=== PATIENT | female | born 1980 | race Caucasian/White ===

== ENCOUNTER 2023-05-24 22:13 | Inpatient (IN) ==
--- OUTSIDE RECORDS SUMMARY | 2023-05-24 22:19 | External Medical Summary | Summary of Care ---
Author Name Unknown Organization [facility] Address [address] [place] [address] Phone [phone] Care Team Providers Care Dinkey Motor Operator Name Role Phone Domingo Marte MD Primary Care Provider [phone] [phone] Reason for Visit * Reason Onset Date Comments Forms Request 05/18/2023 Encounter Details Date Type Department Care Team (Late st Contact Info) Description 05/18/2023 Telephone General Surgery, [facility] [address] [place], [place] [id number] Services, Scheduling [address] [place] [address] Forms Request Allergies Active Allergy Reactions Criticality Noted Date Comments Oxycodone Nausea/vomiting 05/23/2013 documented as of this encounter (statuses as of 05/22/2023) Medications Medication Sig Dispensed Refills Start Date End Date Status Albuterol Sulfate HFA 108 (90 Base) MCG/ACT Inhalation Aerosol SolutionIndications:Mi ld persistent asthma, unspecified whether complicated Inhale by mouth 2 Puffs every 6 hours as needed for Wheezing. 18 g 1 02/12/2022 Active SUMAtriptan Succinate 50 MG Oral Tablet (Imitrex)Indications:M igraine with aura and without status migrainosus, not intractable TAKE 1 TABLET BY MOUTH NEEDED FOR MIGRAINE HEADACHE FOR ONE DOSE. MAY REPEAT DOSE AFTER 2 HOURS NEEDED. DO NOT EXCEED 4 TABLETS PER DAY 10 Tablet 5 09/23/2022 Active medroxyPROGESTERone Acetate 150 MG/ML Intramuscular Suspension 0 04/02/2023 Active Multivitamin Women Oral Tablet Take 1 Tablet by mouth daily. 0 Active Simethicone 125 MG Oral Tablet Take by mouth. 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 Migraine with aura and witho ut status migrainosus, not intractable 07/18/2013 documented as of this encounter (statuses as of 05/22/2023) Resolved Problems Problem Noted Date Diagnosed Date Resolved Date CARRIE (generalized anxiety disorder) 12/09/2022 12/09/2022 Chronic rhinitis 05/12/2021 12/08/2022 Persistent cough 11/14/2020 02/04/2021 Reactive airway disease 11/14/2020 08/0 02/2021 Non-recurrent acute serous o titis media of right ear 11/14/2020 02/04/2021 Viral URI with cough 11/08/2020 021 Melanocytic nevi of face 07/22/201202/2021 ADVANCE DIRECTIVE INFORMATION 12/02/2009 02/04/2021 Overview: No, Advance Directive brochure offered , patient declined. 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 02/04/2021 documented as of this encounter (statuses as of 05/22/2023) Immunizations Name Administration Dates Next Due COVID-19 mRNA, LNP-s, No Pre serve, 2-Dose Series ([employer]) 10/06/2020,09/15/2020 SEASONAL INFLUENZA, PF, 6 M & Above, IM , (FLULAVAL or FLUZONE) 04/16/2023,04/11/2019,04/08/2018 Seasonal Influenza, Split, I IV3, With Preserve, Inj 06/02/2014 TDAP (age 10 and older)(Boostrix) 02/04/2021 TDAP (age 11 and older)(Adacel) 11/30/2009 documented as of this encounter Social History Tobacco Use Types Packs/Day Years Used Date Smoking Tobacco: Never Smokeless Tobacco: Never Alcohol Use Standard Drinks/Week Comments Yes 0 (1 standard drink = 0.6 oz pur e alcohol) occ PHQ-2 Answer Date Recorded PHQ Adult Total Score 0 02/04/2021 Hunger Vital Sign Answer Date Recorded Within the past 12 months, y ou worried that your food would run out before you got the money to buy more. Never true 11/09/19 21 Within the past 12 months, t he food you bought just didn't last and you didn't have money to get more. Never true 11/08/2020 Sex and Gender Information Value Date Recorded Sex Assigned at Female 02/20/2021 12:47 PM EDT Gender Identity Female 02/20/2021 12:47 PM EDT Sexual Orientation Straight 02/20/2021 12 :47 PM EDT Job Start Date Occupation Industry Not on file Not on file Not on file documented as of this encounter Miscellaneous Notes * Telephone Encounter - Divina De La O LPN - 05/20/2023 11:36 AM EST FLMA forms and letter faxed to employer. * Telephone Encounter - Ruby Rojo LPN - 05/20/2023 9:18 AM EST Called patient. 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 She would like to have letter sent through [employer] and also with the [facility]. Sent letter through [employer]. Will forward to [place] office. * Telephone Encounter - Ruby Rojo LPN - 05/20/2023 9:[address] Downing: Sure this is OK. We need a letter she can return to work on light duty. * Telephone Encounter - Luisa Haynes CMA - 05/18/2023 3:48 PM EST Please advise. * Telephone Encounter - Glenis Cagle OSA - 05/18/2023 2:46 PM EST Pt employer sent over FMLA paperwork for Dr. Downing. 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 If Dr. Downing is agreeable to this the pt needs a separate letter letting them know she can still do this position. Please send back with FMLA paperwork. documented in this encounter Plan of Treatment Upcoming Encounters Date Type Department Care Team (Late st Contact Info) Description 05/25/2023 7:35 AM EST Office Visit Non isinger Outreach, Operating Room, [facility] [address] [facility] [place] [address] Wing Downing MD [facility] [place] [address] 05/29/2023 11:20 AM EST Telemedicine Hepatology, [facility] [address] [facility] [place] [address] Lakesha Faye MD [address] [facility] [address] 06/15/2023 11:45 AM EST Office Visit General Surgery, [facility] [address] [facility] [place] [address] Wing Downing MD [address] [facility] [place] [address] 07/27/2023 9:00 AM EST Office Visit Gastroenterology, [facility] [address] [place] [address] Stew Tierra Wall, DO [address] [place] [address] 04/18/2024 12:50 PM EDT Office Visit Dermatology [facility], [place] [address] [facility] [place] [address] Neema Velazquez PA-C [address] [facility] [place] [address] Health Maintenance Due Date Last Done Comments Hepatitis B (1 of 3 - 3-dose series) 1981 HIV Screening 1996 Hepatitis C Screening 10/20/1999 HPV/Co-Test 10/20/2011 Cervical Cancer Screening 03/25/2021 Pap Smear 03/25/2021 03/25/2018, 06/29, 05/02/2010 (Done elsewhere), Additional history exists Mammogram 2021 03/30/2018 Depression Screening 02/04/2022 02/04/2021 COVID-19 Vaccine ( season) 2023 10/06/2020, 09/15/2020 Diabetes Screening 05/14/2026 05/14/2023, 0 03/17/2021, 08/18/2015, Additional history exists Lipid Panel 11/05/2027 11/04/2022, 12/21/2006 DTaP,Tdap,and Td Vaccines (5 - Td or Tdap) 02/04/2031 02/04/2021, 01/23/2014, 01/23/2014, Additional history exists Influenza Vaccine (FLU shot) Completed , 04/11/2019, 04/11/2019, Additional history exists GARDASIL-HPV IMMUNIZATION SERIES Aged Out No longer eligible based on patient's age to complete this topic MENINGOCOCCAL (MENACTRA/MENVEO) Aged Out No longer eligible based on patient's age to complete this topic Pneumococcal Vaccine: Pediatrics (0 to 5 Years) and At-Risk Patients (6 to 64 Years) Aged Out No longer eligible based on patient's age to complete this topic documented as of this encounter Medical Devices Not on filedocumented as of this encounter Care Teams Dinkey Motor Operator Relationship Specialty Start Date End Date Domingo Marte MD [address] [place] [address] PCP - General Family Medicine 11/28/21 documented as of this encounter
--- OUTSIDE RECORDS SUMMARY | 2023-05-24 22:19 | External Medical Summary | Summary of Care ---
Author Name Unknown Organization [facility] Address [address] [place] [address] Phone [phone] Care Team Providers Care Corporate Strategy Analyst Name Role Phone Domingo Marte MD Primary Care Provider [phone] [phone] Reason for Visit * Reason Onset Date Comments Forms Request 05/18/2023 Encounter Details Date Type Department Care Team (Late st Contact Info) Description 05/18/2023 Telephone General Surgery, [facility] [address] [place], [place] [phone] Services, Scheduling [address] [place] [address] Forms Request Allergies Active Allergy Reactions Criticality [...] mRNA, LNP-s, No Pre serve, 2-Dose Series ([employer]) 10/06/2020,09/15/2020 SEASONAL INFLUENZA, PF, 6 M & [...] would like to have letter sent through [employer] and also with the [facility]. Sent letter through [employer]. Will forward to the [facility] office. 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 If Dr. Downing is agreeable to this the pt needs a separate letter letting them know she can still do this position. Please send back with FMLA paperwork. documented in this encounter Plan of Treatment Upcoming Encounters Date Type Department Care Team (Late st Contact Info) Description 05/25/2023 7:35 AM EST Office Visit Non isinger Outreach, Operating Room, [facility] [address] [place] [facility] [place] [address] Wing Downing MD [facility] [place] [address] 05/29/2023 11:20 AM EST Telemedicine Hepatology, [facility] [address] [facility] [place] [address] Lakesha Faye MD [address] [facility] [place] [address] 06/15/2023 11:45 AM EST Office Visit General Surgery, [facility] [address] [facility] [place] [address] Wing Downing MD [address] [facility] [place] [address] 07/27/2023 9:00 AM EST Office Visit Gastroenterology, [facility] [address] [place] [address] Stew Tierra Wall, DO [address] [place] [address] 04/18/2024 12:50 PM EDT Office Visit Dermatology [facility], [place] [address] [facility] [place] [address] Neema Velazquez PA-C [address] [facility] [place] [address] Health Maintenance Due Date Last Done Comments [...] filedocumented as of this encounter Care Teams Corporate Strategy Analyst Relationship Specialty Start Date End Date Domingo Marte MD [address] [place] [address] PCP - General Family Medicine 11/28/21 documented as of this encounter
--- OUTSIDE RECORDS SUMMARY | 2023-05-24 22:19 | External Medical Summary | Summary of Care ---
Author Name Unknown Organization [facility] Address [address] [place] [address] Phone [phone] Care Team Providers Care Refrigerated Cargo Clerk Name Role Phone Domingo Marte MD Primary Care Provider [phone] [phone] Reason for Visit * Reason Onset Date Comments Forms Request 05/18/2023 Encounter Details Date Type Department Care Team (Late st Contact Info) Description 05/18/2023 Telephone General Surgery, [facility] [address] [place], [place] [phone] Services, Scheduling [address] [place] [address] Forms Request Allergies Active Allergy Reactions Criticality [...] mRNA, LNP-s, No Pre serve, 2-Dose Series ([employer]) 10/06/2020,09/15/2020 SEASONAL INFLUENZA, PF, 6 M & [...] would like to have letter sent through [employer] and also with the [facility]. Sent letter through [employer]. Will forward to [facility] office. 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 If Dr. Downing is agreeable to this the pt needs a separate letter letting them know she can still do this position. Please send back with FMLA paperwork. documented in this encounter Plan of Treatment Upcoming Encounters Date Type Department Care Team (Late st Contact Info) Description 05/25/2023 7:35 AM EST Office Visit Non isinger Outreach, Operating Room, [facility] [address] [place] [facility] [place] [address] Wing Downing MD [facility] [place] [address] 05/29/2023 11:20 AM EST Telemedicine Hepatology, [facility] [address] [facility] [place] [address] Lakesha Faye MD [address] [facility] [place] [address] 06/15/2023 11:45 AM EST Office Visit General Surgery, [facility] [address] [facility] [place] [address] Wing Downing MD [address] [facility] [place] [address] 07/27/2023 9:00 AM EST Office Visit Gastroenterology, [facility] [address] [place] [address] Stew Tierra Wall, DO [address] [place] [address] 04/18/2024 12:50 PM EDT Office Visit Dermatology [facility] [place] [address] [facility] [place] [address] Neema Velazquez PA-C [address] [facility] [place] [address] Health Maintenance Due Date Last Done Comments [...] filedocumented as of this encounter Care Teams Refrigerated Cargo Clerk Relationship Specialty Start Date End Date Domingo Marte MD [address] [place] [address] PCP - General Family Medicine 11/28/21 documented as of this encounter
--- OUTSIDE RECORDS SUMMARY | 2023-05-24 22:19 | External Medical Summary | Summary of Care ---
Author Name Unknown Organization [facility] Address [address] [place] [address] Phone [phone] Care Team Providers Care Director Of Medical Education Name Role Phone Domingo Marte MD Primary Care Provider [phone] [phone] Reason for Visit * Reason Onset Date Comments Forms Request 05/18/2023 Encounter Details Date Type Department Care Team (Late st Contact Info) Description 05/18/2023 Telephone General Surgery, [facility] [address] [place], [place] [phone] Services, Scheduling [address] [place] [address] Forms Request Allergies Active Allergy Reactions Criticality Noted Date Comments Oxycodone Nausea/vomiting 05/23/2013 documented as of this encounter (statuses as of 05/20/2023) Medications Medication Sig Dispensed Refills Start Date [...] as of this encounter (statuses as of 05/20/2023) Active Problems Problem Noted Date Diagnosed Date Dyslipidemia 11/04/2022 Obesity, Class II, BMI 35-39.9, isolated (see ac tual BMI) 05/10/2021 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 * Telephone Encounter - Ruby Rojo LPN - 05/20/2023 9:18 AM EST Called patient. 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 She would like to have letter sent through [employer] and also with the [facility]. Sent letter through [employer] Will forward to [facility] office. 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 If Dr. Downing is agreeable to this the pt needs a separate letter letting them know she can still do this position. Please send back with FMLA paperwork. documented in this encounter Plan of Treatment Upcoming Encounters Date Type Department Care Team (Late st Contact Info) Description 05/25/2023 7:35 AM EST Office Visit Non [facility] Out[facility], Operating Room, [facility] [address] [facility] [place] [address] Wing Downing MD [address] [facility] [place] [address] 05/29/2023 11:20 AM EST Telemedicine Hepatology, [facility] [address] [facility] [place] [address] Lakesha Faye MD [address] [place], [place] [address] [address] 06/15/2023 11:45 AM EST Office Visit General Surgery, [facility] [address] [facility] [place] [address] Wing Downing MD [address] [facility] [place] [address] 07/27/2023 9:00 AM EST Office Visit Gastroenterology, [facility] [address] [place] [address] Stew Tierra Wall, DO [address] [place] [address] 04/18/2024 12:50 PM EDT Office Visit Dermatology [facility], [place] [address] [facility] [place] [address] Neema Velazquez PA-C [address] [facility] [place] [address] Health Maintenance Due Date Last Done Comments [...] filedocumented as of this encounter Care Teams Director Of Medical Education Relationship Specialty Start Date End Date Domingo Marte MD [address] [place] [address] PCP - General Family Medicine 11/28/21 documented as of this encounter
--- OUTSIDE RECORDS SUMMARY | 2023-05-24 22:19 | External Medical Summary | Summary of Care ---
Author Name Unknown Organization [facility] Address [address] [place] [address] Phone [phone] Care Team Providers Care Informatics Physician Name Role Phone Domingo Marte MD Primary Care Provider [phone] [phone] Reason for Visit * Reason Onset Date Comments Forms Request 05/18/2023 Encounter Details Date Type Department Care Team (Late st Contact Info) Description 05/18/2023 Telephone General Surgery, [facility] [address] [place], [place] [phone] Services, Scheduling [address] [place] [address] Forms Request Allergies Active Allergy Reactions Criticality [...] mRNA, LNP-s, No Pre serve, 2-Dose Series ([employer]) 10/06/2020,09/15/2020 SEASONAL INFLUENZA, PF, 6 M & [...] encounter Miscellaneous Notes * Telephone Encounter - Ruby Rojo LPN - 05/20/2023 9:18 AM EST Called patient. 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 She would like to have letter sent through [employer] and also with the [facility]. Sent letter through [employer]. Will forward to [facility] office. 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 If Dr. Downing is agreeable to this the pt needs a separate letter letting them know she can still do this position. Please send back with FMLA paperwork. documented in this encounter Plan of Treatment Upcoming Encounters Date Type Department Care Team (Late st Contact Info) Description 05/25/2023 7:35 AM EST Office Visit Non [facility] Outreach, Operating Room, [place] [address] [place] [facility] [place] [address] Wing Downing MD [address] [place] [address] 05/29/2023 11:20 AM EST Telemedicine Hepatology, [facility] [address] [facility] [place] [address] Lakesha Faye MD [address] [place] [address] 06/15/2023 11:45 AM EST Office Visit General Surgery, [facility] [address] [facility] [place] [address] Wing Downing MD [address] [place] [address] 07/27/2023 9:00 AM EST Office Visit Gastroenterology, [facility] [place] [address] Tierra Mathias, [address] [place] [address] 04/18/2024 12:50 PM EDT Office Visit Dermatology [facility], [place] [address] [place] [address] Neema Velazquez PA-C [address] [place] [address] Health Maintenance Due Date Last Done Comments [...] filedocumented as of this encounter Care Teams Informatics Physician Relationship Specialty Start Date End Date Domingo Marte MD [address] [place] [address] PCP - General Family Medicine 11/28/21 documented as of this encounter
--- OUTSIDE RECORDS SUMMARY | 2023-05-24 22:19 | External Medical Summary | Summary of Care ---
Author Name Unknown Organization [facility] Address [address] [place] [address] Phone [phone] Care Team Providers Care Cotton Feeder Name Role Phone Domingo Marte MD Primary Care Provider [phone] [phone] Reason for Referral * Evaluate & Treat - Unlimited Visits (Within 30 days (routine)) - Pending Review Specialty Diagnoses / Procedures Referred By Ash guan Referred To Contact Gastroenterology Diagnoses Hepatic steatosis Maria Esther Evans MD [address] [place] [address] Referral ID Status Reason Start Date Expiration Date Visits Requested Visits Authorized [id number] Pending Review Specialty Services Required [phone] Question Answer Referral Priority Within 30 days (routine) Where should this appointment be scheduled? [facility] For what condition is the patient being referred? Liver conditions Comments Hepatic steatosis. Family member currently dying of cirrhosis, quite concerned about implications for her own future liver health. * Evaluate & Treat - Unlimited Visits (Within 30 days (routine)) - Pending Review Specialty Diagnoses / Procedures Referred By Ash guan Referred To Contact General Surgery Diagnoses Calculus of gallbladder without cholecystitis without obstruction Maria Esther Evans MD [address] [place] [address] Referral ID Status Reason Start Date Expiration Date Visits Requested Visits Authorized [id number] Pending Review Specialty Services Required [phone] Question Answer Referral Priority Within 30 days (routine) Where should this appointment be scheduled? [facility] What condition is the patient being seen for? General Surgery Conditions What condition is the patient being seen for? Gallbladder Encounter Details Date Type Department Care Team (Late st Contact Info) Description 05/17/2023 Telephone Family Practice [facility] [address] [place] [address] Maria Esther Evans MD [address] [place] [address] Allergies Active Allergy Reactions Criticality Noted Date [...] mRNA, LNP-s, No Pre serve, 2-Dose Series ([employer]) 10/06/2020,09/15/2020 SEASONAL INFLUENZA, PF, 6 M & [...] encounter Miscellaneous Notes * Telephone Encounter - Maria Esther Evans MD - 05/18/2023 1:09 PM EST Hepatology referral * Telephone Encounter - [place] - 05/18/2023 12:01 PM EST Pt called and scheduled Gen Surg referral * Telephone Encounter - Maria Esther Evans MD - 05/17/2023 7:45 PM EST General surgery erferral documented in this encounter Plan of Treatment Upcoming Encounters Date Type Department Care Team (Late st Contact Info) Description 05/25/2023 7:35 AM EST Office Visit Non [facility], Operating Room, [facility] [address] [place] [facility] [address] Wing Downing MD [address] [place] [address] 05/29/2023 11:20 AM EST Telemedicine Hepatology, [facility] [address] [place] [address] Lakesha Faye MD [address] [place] [address] 06/15/2023 11:45 AM EST Office Visit General Surgery, [facility] [address] [facility] [place] [address] Wing Downing MD [address] [facility] [place] [address] 07/27/2023 9:00 AM EST Office Visit Gastroenterology, [facility] [address] [facility] [place] [address] Tierra Mathias DO [address] [facility] [place] [address] 04/18/2024 12:50 PM EDT Office Visit Dermatology [facility] [place] [address] [place] [address] Neema Velazquez PA-C [address] [place] [address] Scheduled Referrals Name Type Priority Associated Diagnoses Orde r Schedule SURGERY REFERRAL OP Referral Within 30 da ys (routine) Calculus of gallbladder without cholecystitis without obstruction Ordered: 05/17/2023 HEPATOLOGY REFERRAL OP Referral Within 30 days (routine) Hepatic steatosis Ordered: 05/18/2023 Health Maintenance Due Date Last Done Comments [...] Not on filedocumented as of this encounter Visit Diagnoses Diagnosis Calculus of gallbladder without cholecystitis without obstruction- Primary Calculus of gallbladder without mention of cholecystitis or obstruction Hepatic steatosis Other chronic nonalcoholic liver disease documented in this encounter Care Teams Cotton Feeder Relationship Specialty Start Date End Date Domingo Marte MD [address] [place] [address] PCP - General Family Medicine 11/28/21 documented as of this encounter
--- OUTSIDE RECORDS SUMMARY | 2023-05-24 22:20 | External Medical Summary | Summary of Care ---
Author Name Unknown Organization [facility] Address [address] [place] [address] Phone [phone] Care Team Providers Care Nursing Services Manager Name Role Phone Domingo Marte MD Primary Care Provider [phone] Reason for Visit * Reason Onset Date Comments Follow Up 01/20/2023 Encounter Details Date Type Department Care Team Description 01/20/2023 Telephone Gastroenterology, [facility] [address] [place] [address] Tierra Mathias, DO [address] [place] [address] Follow Up Allergies Active Allergy Reactions Severity Noted Date Comments Oxycodone Nausea/vomiting 05/23/2013 documented as of this encounter (statuses as of 02/03/2023) Medications Medication Sig Dispensed Refills Start Date End Date Status Albuterol Sulfate HFA 108 (90 Base) MCG/ACT Inhalation Aerosol SolutionIndications:M ild persistent asthma, unspecified whether complicated Inhale by mouth 2 Puffs every 6 hours as needed for Wheezing. 18 g 1 02/12/2022 Active SUMAtriptan Succinate 50 MG Oral Tablet (Imitrex)Indications: Migraine with aura and without status migrainosus, not intractable TAKE 1 TABLET BY MOUTH NEEDED FOR MIGRAINE HEADACHE FOR ONE DOSE. MAY REPEAT DOSE AFTER 2 HOURS NEEDED. 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 03/21/2021 Migraine with aura and without status mi grainosus, not intractable 07/18/2013 documented as of this encounter (statuses as of 02/03/2023) Resolved Problems Problem Noted Date Resolved Date CARRIE (generalized anxiety disorder) 12/09/2022 12/09/2022 Chronic rhinitis 05/12/2021 12/08/2022 Persistent cough 11/14/2020 02/04/2021 Reactive airway disease 11/14/2020 02/05/20 21 Non-recurrent acute serous otitis media of right ear 11/14/2020 02/04/2021 Viral URI with cough 11/08/2020 02/04/2021 Melanocytic nevi of face 07/22/2012 021 ADVANCE DIRECTIVE INFORMATION 12/02/2009 Overview: No, Advance Directive brochure offered , patient declined. 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 02/04/2021 documented as of this encounter (statuses as of 02/03/2023) Immunizations Name Administration Dates Next Due COVID-19 mRNA, LNP-s, No Pre serve, 2-Dose Series (Pfizer) 10/06/2020,09/15/2020 Seasonal Influenza, Quadriva lent, No Preserve, 6 [employer] & Above, IM 04/11/2019,04/08/2018 Seasonal Influenza, Split, IIV3, With Preserve, Inj 06/02/2014 TDAP (age 10 and older)(Boostrix) 02/04/2021 TDAP (age 11 and older)(Adacel) 11/30/2009 documented as of this encounter Social History Tobacco Use Types Packs/Day Years Used Date Smoking Tobacco: Never Smokeless Tobacco: Never Alcohol Use Standard Drinks/Week Comments Yes 0 (1 standard drink = 0.6 oz pur e alcohol) occ Food Insecurity Answer Date Recorded Within the past 12 months, y ou worried that your food would run out before you got money to buy more. Never true 11/08/2020 Within the past 12 months, t he food you bought just didn't last and you didn't have money to get more. Never true 11/08/2020 Sex Assigned at Date Recorded Female 02/20/2021 12:47 PM EDT Job Start Date Occupation Industry Not on file Not on file Not on file documented as of this encounter Miscellaneous Notes * Telephone Encounter - Diane aCson RN - 02/03/2023 1:00 PM EDT I left a message for the patient to return my call. * Telephone Encounter - Antoine Torrez RN - 01/20/2023 2:53 PM EDT Nursing- please follow up per Dr. Mathias. "42 year old female with 2 years of mid abdominal symptoms of jittery vibrating sensation at times.One recent one actually lead to vomiting. No real exacerbating factors. ?if this is related ot gaseous distension/stretch of the small bowel/colon. She is going to do a trial of simethicone for 2 weeks and if symptoms persist, will plan for an EGD and colonoscopy. Discussed the possibility of IBS. - Nurse call in 10-14 days. - If symptoms persist, nurse can go ahead and proceed with scheduling patient for EGd and colonoscopy." documented in this encounter Plan of Treatment Upcoming Encounters Date Type Specialty Care Team Description 04/14/2023 Office Visit Dermatology Neema Velazquez PA-C [address] [facility] [place] [address] 07/27/2023 Office Visit Gastroenterology Tierra Mathias, DO [address] [place] [address] Health Maintenance Due Date Last Done Comments Hepatitis B (1 of 3 - 3-dose series) 1981 Pneumococcal Vaccine: Pediatrics (0 to 5 Years) and At-Risk Patients (6 to 64 Years) (1 - PCV) 10/20/1987 HIV Screening 1996 Hepatitis C Screening 10/20/1999 HPV/Co-Test 10/20/2011 COVID-19 Vaccine (3 - Pfizer series) 12/01/2020 10/06/2020, 09/15/2020 Cervical Cancer Screening 03/25/2021 Pap Smear 03/25/2021 03/25/2018, 06/29, 05/02/2010 (Done elsewhere), Additional history exists Mammogram 2021 03/30/2018 Depression Screening, Annual for Pts 12 and Over 02/04/2022 02/04/2021 Influenza Vaccine (FLU shot) (#1) 2023 04/11/2019, 04/11/2019, 04/08/2018, Additional history exists Diabetes Screening 03/17/2024 03/17/2021, 0 08/18/2015, 04/02/2010, Additional history exists Lipid Panel 11/05/2027 11/04/2022, 12/21/2006 DTaP,Tdap,and Td Vaccines (5 - Td or Tdap) 02/04/2031 02/04/2021, 01/23/2014, 01/23/2014, Additional history exists GARDASIL-HPV IMMUNIZATION SERIES Aged Out No longer eligible based on patient's age to complete this topic MENINGOCOCCAL (MENACTRA/MENVEO) Aged Out No longer eligible based on patient's age to complete this topic documented as of this encounter Medical Devices Not on filedocumented as of this encounter Care Teams Nursing Services Manager Relationship Specialty Start Date End Date Domingo Marte MD [address] [place] [address] PCP - General Family Medicine 11/28/21 documented as of this encounter
--- OUTSIDE RECORDS SUMMARY | 2023-05-24 22:20 | External Medical Summary | Summary of Care ---
Author Name Unknown Organization [facility] Address [address] [place] [address] Phone [phone] Care Team Providers Care Carver Hand Name Role Phone Domingo Marte MD Primary Care Provider [phone] Reason for Visit * Reason Comments Pain Thinks gallstones. P ain under right rib area, radiates to back, chest. "Cramping feeling". Can last a couple of hours in the middle of the night. Has has had vomiting before. GI appt video visit. Also went to [facility] GI Encounter Details Date Type Department Care Team (Late st Contact Info) Description 05/14/2023 1:40 PM EST Office Visit Family Practice [facility] [address] [facility] [place] [address] Maria Esther Evans MD [address] [facility] [place] [address] RUQ abdominal pain* Allergies Active Allergy Reactions Criticality Noted Date Comments Oxycodone Nausea/vomiting 05/23/2013 documented as of this encounter (statuses as of 05/14/2023) Medications Medication Sig Dispensed Refills Start Date [...] as of this encounter (statuses as of 05/14/2023) Active Problems Problem Noted Date Diagnosed Date Dyslipidemia 11/04/2022 Obesity, Class II, BMI 35-39.9, isolated (see ac tual BMI) 05/10/2021 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 Migraine with aura and witho ut status migrainosus, not intractable 07/18/2013 documented as of this encounter (statuses as of 05/14/2023) Resolved Problems Problem Noted Date Diagnosed Date [...] as of this encounter (statuses as of 05/14/2023) Immunizations Name Administration Dates Next Due COVID-19 mRNA, LNP-s, No Pre serve, 2-Dose Series (Pfizer) 10/06/2020,09/15/2020 SEASONAL INFLUENZA, PF, 6 M & [...] on file documented as of this encounter Last Filed Vital Signs Vital Sign Reading Time Taken Comments Blood Pressure 118/80 05/14/2023 1:37 PM EST Pulse 88 05/14/2023 1:37 PM EST Temperature - - Respiratory Rate - - Oxygen Saturation - - Inhaled Oxygen Concentration - - Weight 105.7 kg (233 lb) 05/14/2023 1:37 PM EST Height - - Body Mass Index 38.77 12/09/2022 6:21 PM EDT documented in this encounter Progress Notes * Maria Esther Evans MD - 05/14/2023 1:57 PM EST Images from the original note were not included. History of Present Illness Brigitte Barkley is a 42 year old female that presents for Pain (Thinks gallstones. Pain under right rib area, radiates to back, chest. "Cramping feeling". Can last a couple of hours in the middle of the night. Has has had vomiting before. /GI appt video visit. Also went to [facility] GI) 2-3 years of abd pain. Stomach would clench/tremble and wake her up in AM. Then started with more severe episodes. Happening more often. Simethicone prevents daily pain but not episodes. Three now in3-4 months. Wakes up in middle of night with excruciating pain. Starts RUQ, radiates around to back, up into chest. Can't get comfortable. Has considered going to ED. Episodes pass in 3-4 hrs. Tums/Rolaids/heartburn meds don't help. Last two happened after richer, navarrete meals earlier that day. NSAIDs 1x/month. No nicotine, no cannabis, alcohol 2-3 glasses wine/wk. 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 medication and allergy list reviewed Past medical history and problem list reviewed Physical Exam Vitals: 05/14/23 1337 Pulse: 88 BP: 118/80 BP Readings from Last 3 Encounters: 05/14/23 118/80 04/16/23 128/84 12/09/22 118/84 Wt Readings from Last 3 Encounters: 05/14/23 105.7 kg (233 lb) 04/16/23 107.5 kg (236 lb 14.4 oz) 12/09/22 106.6 kg (235 lb) Physical Exam Vitals and nursing note reviewed. Constitutional: General: She is not in acute distress. Appearance: Normal appearance. She is not ill-appearing. HENT: Head: Normocephalic and atraumatic. Eyes: Pupils: Pupils are equal, round, and reactive to light. Neck: Thyroid: No thyroid mass, thyromegaly or thyroid tenderness. Cardiovascular: Rate and Rhythm: Normal rate and regular rhythm. Heart sounds: No murmur heard. Pulmonary: Effort: Pulmonary effort is normal. Breath sounds: Normal breath sounds. Abdominal: General: Abdomen is flat. Bowel sounds are normal. There is no distension. Palpations: Abdomen is soft. There is no mass. Tenderness: There is no abdominal tenderness. There is no guarding or rebound. Hernia: No hernia is present. Musculoskeletal: Right lower leg: No edema. Left lower leg: No edema. Lymphadenopathy: Cervical: No cervical adenopathy. Skin: General: Skin is warm and dry. Neurological: Mental Status: She is alert. I have reviewed the following results: CBC and BMP Assessment and Plan RUQ abdominal pain Story is quite suggestive of gallstones. Since I would episode last night will also check a lipase as if it was pancreatitis it may still be elevated. Will get imaging. Reviewed signs and symptoms that should prompt visit to the emergency department for concern over pancreatitis or ascending cholangitis. - US ABDOMEN LIMITED; Future - COMPREHENSIVE METABOLIC PANEL; Future - LIPASE; Future - CBC; Future Wrap-Up Follow Up: Return for Print labs to take to [facility]. | For: Print labs to take to [facility] Time: I spent a total of 10-19 minutes (exact time 19 mins) on the date of service in preparation, delivery, and documentation of the care provided to Brigitte Barkley excluding any time spent in the performance of separately billed services. documented in this encounter Plan of Treatment Upcoming Encounters Date Type Department Care Team (Late st Contact Info) Description 05/20/2023 11:45 AM EST Imaging Radiology [facility] [address] [facility] [place] [address] 07/27/2023 9:00 AM EST Office Visit Gastroenterology, [facility] [address] [facility] [place] [address] Tierra Mathias DO [address] [facility] [place] [address] 04/18/2024 12:50 PM EDT [facility] [address] [facility] [place] [address] Neema Velazquez PA-C [address] [facility] [place] [address] Scheduled Orders Name Type Priority Associated Diagnoses Orde r Schedule US ABDOMEN LIMITED Medical Imaging Routine RUQ abdominal pain Expected: 05/14/2023, Expires: 06/13/2024 COMPREHENSIVE METABOLIC PANEL Lab Routine RUQ abdominal pain Expected: 05/14/2023, Expires: 05/14/2024 LIPASE Lab Routine RUQ abdominal pain Expected: 05/14/2023 (Approximate), Expires: 05/13/2024 CBC Lab Routine RUQ abdominal pain Expected: 05/14/2023, Expires: 05/14/2024 Health Maintenance Due Date Last Done Comments Hepatitis B (1 of 3 - 3-dose series) 1981 HIV Screening 1996 Hepatitis C Screening 10/20/1999 HPV/Co-Test 10/20/2011 Cervical Cancer Screening 03/25/2021 Pap Smear 03/25/2021 03/25/2018, 06/29, 05/02/2010 (Done elsewhere), Additional history exists Mammogram 2021 03/30/2018 Depression Screening 02/04/2022 02/04/2021 COVID-19 Vaccine ( season) 2023 10/06/2020, 09/15/2020 Diabetes Screening 03/17/2024 03/17/2021, 0 08/18/2015, 04/02/2010, [...] as of this encounter Visit Diagnoses Diagnosis RUQ abdominal pain- Primary Abdominal pain, right upper quadrant documented in this encounter Care Teams Carver Hand Relationship Specialty Start Date End Date Domingo Marte MD [address] [place] [address] PCP - General Family Medicine 11/28/21 documented as of this encounter
--- OUTSIDE RECORDS SUMMARY | 2023-05-24 22:20 | External Medical Summary | Summary of Care ---
Author Name Unknown Organization [facility] Address [address] [place] [address] Phone [phone] Care Team Providers Care Nib Assembler Name Role Phone Domingo Marte MD Primary Care Provider [phone] Reason for Visit * Reason Onset Date Comments Referral 12/10/2022 GI Encounter Details Date Type Department Care Team Description 12/10/2022 Telephone Family Practice [facility] [address] [place] [address] Domingo Marte MD [address] [place] [address] Referral (GI) Allergies Active Allergy Reactions Severity Noted Date Comments Oxycodone Nausea/vomiting 05/23/2013 documented as of this encounter (statuses as of 12/10/2022) Medications Medication Sig Dispensed Refills Start Date [...] as of this encounter (statuses as of 12/10/2022) Active Problems Problem Noted Date Dyslipidemia 11/04/2022 Obesity, Class II, BMI 35-39.9, isolated (see actual BMI) 05/10/2021 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 03/21/2021 Migraine with aura and without status mi grainosus, not intractable 07/18/2013 documented as of this encounter (statuses as of 12/10/2022) Resolved Problems Problem Noted Date Resolved Date [...] as of this encounter (statuses as of 12/10/2022) Immunizations Name Administration Dates Next Due COVID-19 [...] encounter Miscellaneous Notes * Telephone Encounter - Diana Gutiérrez - 12/10/2022 3:55 PM EDT appt was scheduled * Telephone Encounter - Diana Gutiérrez - 12/10/2022 9:52 AM EDT LM for pt to call to schedule with GI documented in this encounter Plan of Treatment Upcoming Encounters Date Type Specialty Care Team Description 03/20/2023 Telemedicine Gastroenterology Nelson Anderson MD [address] [place] [address] 04/21/2023 Office Visit Dermatology Neema Velazuqez PA-C [address] [facility] [place] [address] Health Maintenance Due Date Last Done Comments Hepatitis B (1 of 3 - 3-dose series) 1981 Pneumococcal Vaccine: Pediatrics (0 to 5 Years) and At-Risk Patients (6 to 64 Years) (1 - PCV) 10/20/1987 HIV Screening 1996 Hepatitis C Screening 10/20/1999 COVID-19 Vaccine (3 - Pfizer series) 12/01/2020 10/06/2020, 09/15/2020 Mammogram 2021 03/30/2018 Depression Screening, Annual for Pts 12 and Over 02/04/2022 02/04/2021 Influenza Vaccine (FLU shot) (Season Ended) 2023 04/11/2019, 04/11/2019, 04/08/2018, Additional history exists Pap Smear 03/25/2023 03/25/2018, 06/29, 05/02/2010 (Done elsewhere), Additional history exists Diabetes Screening 03/17/2024 03/17/2021, [...] filedocumented as of this encounter Care Teams Nib Assembler Relationship Specialty Start Date End Date Domingo Marte MD [address] [place] [address] PCP - General Family Medicine 11/28/21 documented as of this encounter
--- OUTSIDE RECORDS SUMMARY | 2023-05-24 22:20 | External Medical Summary | Summary of Care ---
Author Name Unknown Organization [facility] Address [address] [place] [address] Phone [phone] Care Team Providers Care Client Support Representative Name Role Phone Domingo Marte MD Primary Care Provider [phone] Reason for Visit * Evaluate & Treat - Unlimited Visits (Within 10 days (routine)) - Pending Review Specialty Diagnoses / Procedures Referred By Ash guan Referred To Contact Gastroenterology Diagnoses Food intolerance Domingo Marte MD [address] [facility] [facility] [place] [address] Referral ID Status Reason Start Date Expiration Date Visits Requested Visits Authorized [id number] Pending Review Specialty Services Required 12/09/[phone] Encounter Details Date Type Department Care Team Description 01/20/2023 Telemedicine Gastroenterology, [facility] [address] [facility] [place] [address] Tierra Mathias DO [address] [place] [address] Stomach upset*; Spasm of gastrointestinal tract Allergies Active Allergy Reactions Severity Noted Date Comments Oxycodone Nausea/vomiting 05/23/2013 documented as of this encounter (statuses as of 01/20/2023) Medications Medication Sig Dispensed Refills Start Date [...] as of this encounter (statuses as of 01/20/2023) Active Problems Problem Noted Date Dyslipidemia 11/04/2022 Obesity, Class II, BMI 35-39.9, isolated (see actual BMI) 05/10/2021 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 03/21/2021 Migraine with aura and without status mi grainosus, not intractable 07/18/2013 documented as of this encounter (statuses as of 01/20/2023) Resolved Problems Problem Noted Date Resolved Date [...] as of this encounter (statuses as of 01/20/2023) Immunizations Name Administration Dates Next Due COVID-19 mRNA, LNP-s, No Pre serve, 2-Dose Series ([employer]) 10/06/2020,09/15/2020 Seasonal Influenza, Quadriva lent, No Preserve, [...] on file documented as of this encounter Progress Notes * Tierra Mathias, - 01/20/2023 2:03 PM EDT DATE OF SERVICE: 01/20/2023 REFERRING PHYSICIAN: Domingo Marte MD Patient location: HOME. I was in a hospital or clinic location. After connecting through [employer],patient was verified with two unique identifiers. 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 Methods to assure confidentiality were taken. Patient acknowledged consent and understanding of pr ivacy and security of the Telemedicine visit. The patient agreed to participate. CC: Stomach problems 2 years of problems with near daily stomach vibrating in the morning. In the last 1-2 months she has also had it at night. One episode lead to vomiting. Went into her back. This feeling tends to occur in the setting of waking up or can actually wake her up. Getting up and moving around seems to make it better. No diarrhea or constipation. At level of the belly button. Had a C section in the past.No there abd surgeries. Had asked to be tested for food allergies. This was negative. Tried stopping gluten for 2 weeks without any difference. Takes NSAIDs a few times a month. Has cluster migraines - uses triptans PRN. Mother and sister have food senstivities. Mother has IBS Drinks almond milk. No problems with any specific foods. Telemedicine Visit 01/20/2023: EGD: no Colonoscopy: No Family history of GI malignancy: none Family history of liver disease: none Past Medical History: Diagnosis Date Abnormal Papanicolaou smear of vagina and vaginal HPV LGSIL, nl colpo 2002 Dyslipidemia 11/04/2022 CARRIE (generalized anxiety disorder) 12/09/2022 Melanocytic nevi of face 07/22/2012 Migraine with aura and without status migrainosus, not intractable 07/18/2013 Other congenital anomaly of uterus Uterine Anomaly,VERNA Didelphus, vag septum Family History Problem Relation Age of Onset Cancer Mother basal cell ca Diabetes Father possible diabetes Diabetes Grandfather (Paternal) dec Cancer Grandmother (Maternal) basal cell ca Ear Problems Grandmother (Maternal) Glaucoma Past Surgical History: Procedure Laterality Date COLPOSCOPY OF CERVIX W/BIOPSY pt has 2 cervix Social History Tobacco Use Smoking status: Never Smokeless tobacco: Never Vaping Use Vaping Use: Never used Substance Use Topics Alcohol use: Yes Comment: occ Drug use: Not on file Review of patient's allergies indicates: Allergen Reactions Oxycodone Nausea/vomiting Current Outpatient Medications Medication Sig Dispense Refill Albuterol Sulfate HFA 108 (90 Base) MCG/ACT Inhalation Aerosol Solution Inhale by mouth 2 Puffsevery 6 hours as needed for Wheezing. 18 g 1 SUMAtriptan Succinate 50 MG Oral Tablet (Imitrex) TAKE 1 TABLET BY MOUTH NEEDED FOR MIGRAINEHEADACHE FOR ONE DOSE. MAY REPEAT DOSE AFTER 2 HOURS NEEDED. DO NOT EXCEED 4 TABLETS PER DAY 10 Tablet 5 No current facility-administered medications for this visit. REVIEW OF SYSTEMS: All other findings negative except as noted in HPI. EXAM: GENERAL: Appears stated age, well developed, well nourished in no acute distress. SKIN: No apparent rashes, jaundice, ecchymosis, oral lesions. HEENT: Neck supple. Normocephalic, sclera non-icteric LUNGS: No respiratory distress or apparent accessory muscles used. Normal chest excursion. No audible wheezing NEURO: No lateralizing findings. Cranial nerves IV, V, , VII, XI and XII in tact. Motor grossly normal. PSYCHOSOCIAL: Appropriate affect, normal memory recall, ASSESSMENT AND PLAN: 42 year old female with 2 years of mid abdominal symptoms of jittery vibrating sensation at times. One recent one actually lead to vomiting. No [...] proceed with scheduling patient for EGd and colonoscopy. - ED for emergencies - Please call with any questions or concerns RETURN TO CLINIC: Tierar Mathias DO Gastroenterology 01/20/2023 2:12 PM R: 01/20/2023 documented in this encounter Plan of Treatment Upcoming Encounters Date Type Specialty Care Team Description 04/14/2023 Office Visit Dermatology Neema Velazquez PA-C [address] [facility] [place] [address] Scheduled Referrals Name Type Priority Associated Diagnoses Order Schedule GASTROENTEROLOGY REFERRAL OP Referral Within 10 days (routine) Food intolerance Ordered: 12/09/2022 Health Maintenance Due Date Last Done Comments [...] as of this encounter Visit Diagnoses Diagnosis Stomach upset- Primary Dyspepsia and other specified disorders of function of stomach Spasm of gastrointestinal tract Unspecified functional disorder of stomach documented in this encounter Care Teams Client Support Representative Relationship Specialty Start Date End Date Domingo Marte MD [address] [place] [address] PCP - General Family Medicine 11/28/21 documented as of this encounter
--- OUTSIDE RECORDS SUMMARY | 2023-05-24 22:20 | External Medical Summary | Summary of Care ---
Author Name Unknown Organization [facility] Address [address] [place] [address] Phone [phone] Care Team Providers Care Supervisor Data Processing Name Role Phone Domingo Marte MD Primary Care Provider +1 -[phone] Reason for Visit * Reason Onset Date Comments Follow Up 01/20/2023 Encounter Details Date Type Department Care Team Description 01/20/2023 Telephone Gastroenterology, [facility] [address] [place] [address] Tierra Mathias, DO [address] [facility] [place] [address] Follow Up Allergies Active Allergy Reactions Severity [...] encounter Miscellaneous Notes * Telephone Encounter - Antoine Torrez RN [...] Description 04/14/2023 Office Visit Dermatology Neema Velazquez PA-Jessa [address] [facility] [place] [address] Health Maintenance Due Date Last Done Comments [...] filedocumented as of this encounter Care Teams Supervisor Data Processing Relationship Specialty Start Date End Date Domingo Marte MD [address] [place] [address] PCP - General Family Medicine 11/28/21 documented as of this encounter
--- OUTSIDE RECORDS SUMMARY | 2023-05-24 22:20 | External Medical Summary | Summary of Care ---
Author Name Unknown Organization [facility] Address [address] [place] [address] Phone [phone] Care Team Providers Care Binding Folder Machine Name Role Phone Domingo Marte MD Primary Care Provider +1 [phone] Reason for Visit * Reason Onset Date Comments Forms Request 05/18/2023 Encounter Details Date Type Department Care Team (Late st Contact Info) Description 05/18/2023 Telephone General Surgery, [facility] [address] [place], [place] [id number] Services, Scheduling [address] [place] [address] Forms Request Allergies Active Allergy Reactions Criticality [...] mRNA, LNP-s, No Pre serve, 2-Dose Series ([employer]) 10/06/2020,09/15/2020 SEASONAL INFLUENZA, PF, 6 M & [...] encounter Miscellaneous Notes * Telephone Encounter - Luisa Haynes CMA - 05/18/2023 3:48 PM EST Please advise. * Telephone Encounter - Glenis Cagle OSA - 05/18/2023 2:46 PM EST Pt employer sent over [facility] paperwork for Dr. Downing. 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 If Dr. Downing is agreeable to this the pt needs a separate letter letting them know she can still do this position. Please send back with [facility] paperwork. documented in this encounter Plan of Treatment Upcoming Encounters Date Type Department Care Team (Late st Contact Info) Description 05/25/2023 7:35 AM EST Office Visit Non [facility], Operating Room, [facility] [address] [facility] [place] [address] Wing Downing MD [address] [place] [address] 05/29/2023 11:20 AM EST Telemedicine Hepatology, [facility] [address] [facility] [place] [address] Lakesha Faye MD [address] [place] [address] [place] [address] 06/15/2023 11:45 AM EST Office Visit General Surgery, [facility] [address] [facility] [place] [address] Wing Downing MD [address] [place] [address] 07/27/2023 9:00 AM EST Office Visit Gastroenterology, [facility] [address] [place] [address] Tierra Mathias DO [facility] [address] 04/18/2024 12:50 PM EDT Office Visit Dermatology [facility] [address] [place] [address] Neema Velazquez PA-C [address] [place] [address] Health Maintenance Due Date Last Done Comments [...] filedocumented as of this encounter Care Teams Binding Folder Machine Relationship Specialty Start Date End Date Domingo Marte MD [address] [place] [address] PCP - General Family Medicine 11/28/21 documented as of this encounter
--- OUTSIDE RECORDS SUMMARY | 2023-05-24 22:20 | External Medical Summary | Summary of Care ---
Author Name Unknown Organization [facility] Address [address] [place] [address] Phone [phone] Care Team Providers Care Banana Loader Name Role Phone Domingo Marte MD Primary Care Provider +1 [phone] Reason for Visit * Reason Onset Date Comments Forms Request 05/18/2023 Encounter Details Date Type Department Care Team (Late st Contact Info) Description 05/18/2023 Telephone General Surgery, [facility] [address] [place], [place] [id number] Services, Scheduling [address] [place] [address] Forms Request Allergies Active Allergy Reactions Criticality Noted Date Comments Oxycodone Nausea/vomiting 05/23/2013 documented as of this encounter (statuses as of 05/18/2023) Medications Medication Sig Dispensed Refills Start Date [...] as of this encounter (statuses as of 05/18/2023) Active Problems Problem Noted Date Diagnosed Date Dyslipidemia 11/04/2022 Obesity, Class II, BMI 35-39.9, isolated (see ac tual BMI) 05/10/2021 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 Downing. 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 If Dr. Downing is agreeable to this the pt needs a separate letter letting them know she can still do this position. Please send back with [facility] paperwork. documented in this encounter Plan of Treatment Upcoming Encounters Date Type Department Care Team (Late st Contact Info) Description 06/15/2023 11:45 AM EST Office Visit General Surgery, [facility] [address] [place] [place] [address] Wing Downing MD [address] [place] [address] 07/27/2023 9:00 AM EST Office Visit Gastroenterology, [facility] [address] [place] [address] Tierra Mathias, DO [address] [place] [address] 04/18/2024 12:50 PM EDT Office Visit Dermatology [facility] [place] [address] [place] [address] Neema Velazquez PA-C [address] [place] [address] Health Maintenance Due Date Last Done Comments [...] filedocumented as of this encounter Care Teams Banana Loader Relationship Specialty Start Date End Date Domingo Marte MD [address] [place] [address] PCP - General Family Medicine 11/28/21 documented as of this encounter
--- OUTSIDE RECORDS SUMMARY | 2023-05-24 22:20 | External Medical Summary | Summary of Care ---
Author Name Unknown Organization [facility] Address [address] [place] [address] Phone [phone] Care Team Providers Care Curbstone Setter Name Role Phone Domingo Marte MD Primary Care Provider [phone] [phone] Reason for Visit * Reason Onset Date Comments Encounter Created in Error 02/10/2023 Encounter Details Date Type Department Care Team Description 02/10/2023 Telephone Gastroenterology, [facility] [address] [facility] [place] [address] Tierra Mathias, DO [address] [facility] [place] [address] Encounter Created in Error Allergies Active Allergy Reactions Severity Noted Date Comments Oxycodone Nausea/vomiting 05/23/2013 documented as of this encounter (statuses as of 02/10/2023) Medications Medication Sig Dispensed Refills Start Date [...] as of this encounter (statuses as of 02/10/2023) Active Problems Problem Noted Date Dyslipidemia 11/04/2022 Obesity, Class II, BMI 35-39.9, isolated (see actual BMI) 05/10/2021 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 03/21/2021 Migraine with aura and without status mi grainosus, not intractable 07/18/2013 documented as of this encounter (statuses as of 02/10/2023) Resolved Problems Problem Noted Date Resolved Date [...] as of this encounter (statuses as of 02/10/2023) Immunizations Name Administration Dates Next Due COVID-19 [...] encounter Miscellaneous Notes * Telephone Encounter - Julissa Das RN - 02/10/2023 2:39 PM EDT error documented in this encounter Plan of Treatment Upcoming Encounters Date Type Specialty Care Team Description 3 Office Visit Dermatology Neema Velazquez PA-C [address] [facility] [place] [address] 4 Hospital Encounter Endoscopy Tierra Mathias, DO [address] [place] [address] 4 Surgery Endoscopy Tierra Mathias, DO [address] [place] [address] ESOPHAGOGASTRODUODENOSCOPY (EGD), FLEXIBLE, TRANSORAL, DIAGNOSTIC 4 Office Visit Gastroenterology Tierra Mathias, DO [address] [place] [address] Scheduled Procedures Name Priority Associated Diagnoses Date/Ti me ESOPHAGOGASTRODUODENOSCOPY ( EGD), FLEXIBLE, TRANSORAL, DIAGNOSTIC Spasm of gastrointestinal tract 07/10/2023 2:00 PM EST COLONOSCOPY FLEXIBLE PROXIMA L DIAGNOSTIC Spasm of gastrointestinal tract 07/10/2023 2:00 PM EST Health Maintenance Due Date Last Done Comments [...] filedocumented as of this encounter Care Teams Curbstone Setter Relationship Specialty Start Date End Date Domingo Marte MD [address] [place] [address] PCP - General Family Medicine 11/28/21 documented as of this encounter
--- OUTSIDE RECORDS SUMMARY | 2023-05-24 22:20 | External Medical Summary | Summary of Care ---
Author Name Unknown Organization [facility] Address [address] [place] [address] Phone [phone] Care Team Providers Care Laboratory Aide Name Role Phone Domingo Marte MD Primary Care Provider +1 [phone] Reason for Referral * Evaluate & Treat - Unlimited Visits (Within 10 days (routine)) - Pending Review Specialty Diagnoses / Procedures Referred By Ash guan Referred To Contact Gastroenterology Diagnoses Food intolerance Domingo Marte MD [address] [facility] [place] [address] Referral ID Status Reason Start Date Expiration Date Visits Requested Visits Authorized [id number] Pending Review Specialty Services Required 12/09/[phone] Question Answer Referral Priority Within 10 days (routine) For what condition is the patient being referred? All Gastro Conditions Reason for Visit * Reason Comments Physical-Exam Pt here to review re cent testing, would also like to discuss testing for hep c. 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 18 g 1 02/12/2022 Active SUMAtriptan Succinate 50 MG Oral Tablet (Imitrex)Indicatio ns:Migraine with aura and without status migrainosus, not intractable TAKE 1 TABLET BY MOUTH NEEDED FOR MIGRAINE HEADACHE FOR ONE DOSE. MAY REPEAT DOSE AFTER 2 HOURS NEEDED. DO NOT EXCEED 4 TABLETS PER DAY 10 Tablet 5 09/23/2022 Active hydrOXYzine HCl 10 MG Oral Tablet (Atarax)Indication s:Anxiety Take 1 Tab by mouth every 6 hours as needed for Anxiety. 40 Tab 2 02/16/2021 12/09/2022 Discontinued (Discharged) Fluticasone Propionate 50 MCG/ACT Nasal Suspension (Flonase) SPRAY 2 SPRAYS INTO EACH NOSTRIL EVERY DAY 16 mL 1 05/10/2021 12/09/2022 Discontinued (Discharged) Promethazine-DM 6.25-15 MG/5ML Oral SyrupIndications:V iral URI with cough Take by mouth 5 mL as needed in the morning AND 5 mL as needed at noon AND 5 mL as needed in the evening AND 5 mL as needed before bedtime for Cough. 120 mL 0 02/12/2022 12/09/2022 Discontinued (Discharged) documented as of this encounter (statuses as of 12/09/2022) Active Problems Problem Noted Date Dyslipidemia 11/04/2022 Obesity, Class II, BMI 35-39.9, isolated (see actual BMI) 05/10/2021 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 03/21/2021 Migraine with aura and without status mi grainosus, not intractable 07/18/2013 documented as of this encounter (statuses as of 12/09/2022) Resolved Problems Problem Noted Date Resolved Date [...] as of this encounter (statuses as of 12/09/2022) Immunizations Name Administration Dates Next Due COVID-19 [...] Sign Reading Time Taken Comments Blood Pressure 118/84 12/09/2022 6:21 PM EDT Pulse 84 12/09/2022 6:21 PM EDT Temperature 36.2 C (97.2 F) 12/09/2022 6:21 PM ED T Respiratory Rate 18 12/09/2022 6:21 PM EDT Oxygen Saturation - - Inhaled Oxygen Concentration - - Weight 106.6 kg (235 lb) 12/09/2022 6:21 PM EDT Height 165.1 cm (5' 5") 12/09/2022 6:21 PM EDT Body Mass Index 39.11 12/09/2022 6:21 PM EDT documented in this encounter Progress Notes * Domingo Marte MD - 12/09/2022 6:49 PM EDT SUBJECTIVE: Brigitte Barkley is a 42 year old female. Chief Complaint Patient presents with Physical-Exam Pt here to review recent testing, would also like to discuss testing for hep c. HPI: This is a very pleasant 42 year old female here for a yearly visit. She had some food allergy testing done recently which was all negative. She states that every morning her stomach is "vibrating." She has never seen GI. Her routine obstetrics gyn care is scheduled. She does have the SSCD of the right ear. ENT felt surgery would not help at this juncture given that her balance issues are minimal. Her migrain es are well-managed. 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 Allergy: Review of patient's allergies indicates: Allergen Reactions Oxycodone Nausea/vomiting OBJECTIVE: BP 118/84 (BP Site: Left Arm, BP Position: Sitting, BP Cuff Size: Regular) | Pulse 84 | Temp 36.2 C (97.2 F) (Tympanic) | Resp 18 | Ht 1.651 m (5' 5") | Wt 106.6 kg (235 lb) | BMI 39.11 kg/m | BSA 2.21 m General: alert, healthy and no distress Neck: supple, no adenopathy, no bruits, thyroid normal size, non-tender, without nodularity Lungs: chest symmetric with normal AP diameter, no chest deformities noted, no chest wall tenderness, lungs clear to auscultation Heart: regular rate & rhythm, no murmur and no gallops Extremities: less than 2 second capillary refill, no joint deformities, effusion, or inflammation Neuro Exam: alert & oriented x 3 with fluent speech, no focal motor/sensory deficits, gait normal, reflexes normal and symmetric Skin: skin color, texture, turgor are normal, no rashes or significant lesions ASSESSMENT AND PLAN: (Z00.00) Routine general medical examination at a health care facility (primary encounter diagnosis) Plan: health maintenance addressed; has upcoming obstetrics gyn appt (E66.9) Obesity, Class II, BMI 35-39.9, isolated (see actual BMI) Plan: diet/exercise (E78.5) Dyslipidemia Plan: not in statin benefit group (G43.109) Migraine with aura and without status migrainosus, not intractable Plan: stable; prn imitrex helping (H83.8X1) 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 No other complaints were offered at this time. Domingo Marte MD documented in this encounter Plan of Treatment Upcoming Encounters Date Type Specialty Care Team Description 04/21/2023 Office Visit Dermatology Neema Velazquez PA-C [address] [facility] [place] [address] Scheduled Orders Name Type Priority Associated Diagnoses Orde r Schedule HEPATITIS C ANTIBODY SCREEN WITH PROGRESSION TO HEPATITIS C RNA QUANTITATIVE Lab Routine Expected: 2022 (Approximate), Expires: 12/09/2023 Scheduled Referrals Name Type Priority Associated Diagnoses [...] as of this encounter Visit Diagnoses Diagnosis Routine general medical examination at a health care facility- Primary Obesity, Class II, BMI 35-39.9, isolated (see actual BMI) Morbid obesity Dyslipidemia Other and unspecified hyperlipidemia Migraine with aura and without status migrainosus, not intractable Migraine with aura, without mention of intractable migraine without mention of status migrainosus 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
--- OUTSIDE RECORDS SUMMARY | 2023-05-24 22:20 | External Medical Summary | Summary of Care ---
Author Name Unknown Organization [facility] Address [address] [place] [address] Phone [phone] Care Team Providers Care Silk Printer Name Role Phone Domingo Marte MD Primary Care Provider +1 -[phone] Reason for Visit * Reason Onset Date Comments Appointment 01/21/2023 F/u appt - gastr o Encounter Details Date Type Department Care Team Description 01/21/2023 Telephone Gastroenterology, [facility] [address] [place] [address] Tierra Mathias, [address] [facility] [place] [address] Appointment (F/u appt - gastro) Allergies Active Allergy Reactions Severity Noted Date Comments Oxycodone Nausea/vomiting 05/23/2013 documented as of this encounter (statuses as of 01/21/2023) Medications Medication Sig Dispensed Refills Start Date [...] as of this encounter (statuses as of 01/21/2023) Active Problems Problem Noted Date Dyslipidemia 11/04/2022 Obesity, Class II, BMI 35-39.9, isolated (see actual BMI) 05/10/2021 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 03/21/2021 Migraine with aura and without status mi grainosus, not intractable 07/18/2013 documented as of this encounter (statuses as of 01/21/2023) Resolved Problems Problem Noted Date Resolved Date [...] as of this encounter (statuses as of 01/21/2023) Immunizations Name Administration Dates Next Due COVID-19 [...] encounter Miscellaneous Notes * Telephone Encounter - SURI Escudero - 01/21/2023 9:42 AM EDT Pt returned call, appt scheduled * Telephone Encounter - SURI Atkins - 01/21/2023 8:59 AM EDT Per Stew following 01/20 video visit: Return in about 6 months (around 07/23/2023), or if symptoms worsen or fail to improve. LMcell asking pt to return call. documented in this encounter Plan of Treatment Upcoming Encounters Date Type Specialty Care Team Description 04/14/2023 Office Visit Dermatology Neema Velazquez PA-C [address] [facility] [place] [address] 07/27/2023 Office Visit Gastroenterology Tierra Mathias, DO [address] [place] [address] Health Maintenance Due Date Last Done Comments [...] filedocumented as of this encounter Care Teams Silk Printer Relationship Specialty Start Date End Date Domingo Marte MD [address] [place] [address] PCP - General Family Medicine 11/28/21 documented as of this encounter
--- OUTSIDE RECORDS SUMMARY | 2023-05-24 22:20 | External Medical Summary | Summary of Care ---
Author Name Unknown Organization [facility] Address [address] [place] [address] Phone [phone] Care Team Providers Care Surgery Scheduling Coordinator Name Role Phone Domingo Marte MD Primary Care Provider +1 -[phone] Reason for Visit * Reason Onset Date Comments Follow Up 01/20/2023 Encounter Details Date Type Department Care Team Description 01/20/2023 Telephone Gastroenterology, [facility] [address] [place] [address] Tierra Mathias, DO [address] [place] [address] Follow Up Allergies Active Allergy Reactions Severity [...] as of this encounter Miscellaneous Notes * Addendum Note - Jessy Umanzor RN - 02/10/2023 2:45 PM EDTAddended by: JESSY UMANZOR on: 02/10/2023 02:45 PM Modules accepted: Orders * Telephone Encounter - Jessy Umanzor RN - 02/10/2023 2:43 PM EDT Patient called in. Reports her symptoms are still persisting. Would like to pursue a colonoscopy anEGD. Orders placed. Transferred to scheduling. * Telephone Encounter - Antoine Torrez RN - 02/06/2023 11:30 AM EDT Called, went straight to , [facility] with return #. * Telephone Encounter - Diane Cason RN - 02/03/2023 1:00 PM EDT I [...] 3 Office Visit Dermatology Neema Velazquez PA-C [address] [facility] [place] [address] 4 Hospital Encounter Endoscopy Tierra Mathias, DO [address] [place] [address] 4 Surgery Endoscopy Tierra Mathias, DO [address] [place] [address] ESOPHAGOGASTRODUODENOSCOPY (EGD), FLEXIBLE, TRANSORAL, DIAGNOSTIC 4 Office Visit Gastroenterology Tierra Mathias, DO [address] [place] [address] Scheduled Orders Name Type Priority Associated Diagnoses Orde r Schedule COLONOSCOPY, DIAGNOSTIC (RECTUM) Procedures Routine Spasm of gastrointestinal tract Ordered: 02/10/2023 EGD, FLEXIBLE, DIAGNOSTIC Procedures Routine Spasm of gastrointestinal tract Ordered: 02/10/2023 Scheduled Procedures Name Priority Associated Diagnoses Date/Ti [...] gastrointestinal tract Unspecified functional disorder of stomach Spasm of gastrointestinal tract Unspecified functional disorder of stomach documented in this encounter Care Teams Surgery Scheduling Coordinator Relationship Specialty Start Date End Date Domingo Marte MD [address] [place] [address] PCP - General Family Medicine 11/28/21 documented as of this encounter
--- OUTSIDE RECORDS SUMMARY | 2023-05-24 22:20 | External Medical Summary | Summary of Care ---
Author Name Unknown Organization [facility] Address [address] [place] [address] Phone [phone] Care Team Providers Care Tool Design Draftsperson Name Role Phone Domingo Marte MD Primary Care Provider +1 -[phone] Reason for Visit * Reason Onset Date Comments Follow Up 01/20/2023 Encounter Details Date Type Department Care Team Description 01/20/2023 Telephone Gastroenterology, [facility] [address] [place] [address] Tierra Mathias, DO [address] [facility] [place] [address] Follow Up Allergies Active Allergy Reactions Severity [...] Umanzor RN - 02/10/2023 2:43 PM EDT Called patient. Reports her symptoms are still persisting. Would like to pursue a colonoscopy an EGD. Orders placed. Transferred to scheduling. * Telephone Encounter - Antoine Torrez RN - 02/06/2023 11:30 AM EDT Called, went straight to , [facility] with return #. * Telephone Encounter - [...] 04/14/2023 Office Visit Dermatology Neema Velazquez PA-C [address] [facility] [place] [address] 07/27/2023 Office Visit Gastroenterology Tierra Mathias, DO [address] [place] [address] Scheduled Orders Name Type Priority Associated Diagnoses Orde r Schedule COLONOSCOPY, DIAGNOSTIC (RECTUM) Procedures Routine Spasm of gastrointestinal tract Ordered: 02/10/2023 EGD, FLEXIBLE, DIAGNOSTIC Procedures Routine Spasm of gastrointestinal tract Ordered: 02/10/2023 Health Maintenance Due Date Last Done Comments [...] stomach documented in this encounter Care Teams Tool Design Draftsperson Relationship Specialty Start Date End Date Domnigo Marte MD [address] [place] [address] PCP - General Family Medicine 11/28/21 documented as of this encounter
--- OUTSIDE RECORDS SUMMARY | 2023-05-24 22:20 | External Medical Summary | Summary of Care ---
Author Name Unknown Organization [facility] Address [address] [place] [address] Phone [phone] Care Team Providers Care Car Builder Name Role Phone Domingo Marte MD Primary Care Provider [phone] [phone] Reason for Visit * Reason Onset Date Comments Emergency Department Follow-Up D og bite to left elbow area; suture removal; patient states she has pins/needles to left shoulder area to joint, first noticed this past Thursday - states it is consistent, and intensity fluctuates Medication Administration 04/16/2023 Flu an d/or Pneumo Inj Encounter Details Date Type Department Care Team Description 04/16/2023 Office Visit Family [facility] [address] [facility] [place] [address] Shankar Barrett CRNP [address] [place] [address] Dog bite of left upper extremity, subsequent encounter*; Encounter for removal of sutures; Pain of left upper arm; Need for prophylactic vaccination and inoculation against influenza Allergies Active Allergy Reactions Severity Noted Date Comments Oxycodone Nausea/vomiting 05/23/2013 documented as of this encounter (statuses as of 04/16/2023) Medications Medication Sig Dispensed Refills Start Date [...] 1 Tablet by mouth daily. 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 Migraine with aura and without status mi grainosus, not intractable 07/18/2013 documented as of this encounter (statuses as of 04/16/2023) Resolved Problems Problem Noted Date Resolved Date [...] as of this encounter (statuses as of 04/16/2023) Immunizations Name Administration Dates Next Due COVID-19 mRNA, LNP-s, No Pre serve, 2-Dose Series ([email or web address]) 10/06/2020,09/15/2020 SEASONAL INFLUENZA, PF, 6 M & Above, IM , (FLULAVAL or FLUZONE) 04/16/2023,04/11/2019,04/08/2018 Seasonal Influenza, Split, I IV3, With Preserve, Inj 06/02/2014 TDAP (age 10 and older)(Boostrix) 02/04/2021 TDAP (age 11 and older)(Adacel) 11/30/2009 documented as of this encounter Social History Tobacco Use Types Packs/Day Years Used Date Smoking Tobacco: Never Smokeless Tobacco: Never Tobacco Cessation:Counseling Given: Not Answered Alcohol Use Standard Drinks/Week Comments Yes 0 [...] Sign Reading Time Taken Comments Blood Pressure 128/84 04/16/2023 10:50 AM EDT Pulse 76 04/16/2023 10:50 AM EDT Temperature 37.3 C (99.2 F) 04/16/2023 1 0:50 AM EDT Respiratory Rate 16 04/16/2023 10:5 0 AM EDT Oxygen Saturation - - Inhaled Oxygen Concentration - - Weight 107.5 kg (236 lb 14.4 oz) 2022 10:50 AM EDT Height - - Body Mass Index 39.42 12/09/2022 6:21 PM EDT documented in this encounter Patient Instructions * Patient Instructions* Mike Lyn RN - 04/16/2023 10:56 AM EDT ~~PATIENT INSTRUCTIONS FOR FLU SHOT~~ Possible side effects of influenza vaccine, (flu shot), are usually mild and include: 1. Soreness or redness at injection site 2. Low grade fever 3. Body aches You may use Tylenol/Acetaminophen as needed for these symptoms. LET YOUR DOCTOR KNOW IMMEDIATELY IF YOU HAVE DIFFICULTY BREATHING OR SWALLOWING, EXPERIENCE ITCHINGOF FEET OR HANDS, HAVE SWELLING OF EYES, FACE OR INSIDE OF NOSE. documented in this encounter Progress Notes * Mike Lyn RN - 04/16/2023 10:56 AM EDT PRE - ADMINISTRATION DOCUMENTATION Are you experiencing any cold symptoms or fever? No Have you had Guillain-Grimsley Syndrome (an illness that causes paralysis) within the last 6 weeks? No Have you had the flu shot in the past? YES Have you ever had a reaction to the flu shot? No Mike Lyn RN, 04/16/2023 10:56 AM * COLIN Tadeo - 04/16/2023 10:56 AM EDT Images from the original note were not included. Follow up Family Medicine Visit History of Present Illness Brigitte Barkley is a very pleasant 42 year old female with PMH listed below presenting with ER f/u. Dog bite by her neighbor's dog, bit her L elbow/arm 04/06/23, 3 lacerations on arm were sutured on 04/06/23. Laceration 1 : distal humerus 2 sutures Laceration 2 : distal humerus 2 sutures Laceration 3 : proximal forearm 2 sutures UTD on tetanus. Dog is up-to-date on Rabies. Course of Augmentin finished. She noted pain, pins andneedles sensation in L shoulder 3 days ago. No fever or trauma. She was driving 4 hours. Sutures removed. Wound clean and dry. No infection evident. Pathology report reviewed with patient. Follow-up prn. COLIN Tadeo 04/16/2023 Social History Socioeconomic History Marital status: Spouse name: Not on file Number of children: Not on file Years of education: Not on file Highest education level: Not on file Occupational History Not on file Tobacco Use Smoking status: Never Smokeless tobacco: Never Vaping Use Vaping Use: Never used Substance and Sexual Activity Alcohol use: Yes Comment: occ Drug use: Never Sexual activity: Yes Partners: Male control/protection: Condom Comment: stable relationship of 6 years Other Topics Concern Service Not Asked Blood Transfusions Not Asked Caffeine Concern Not Asked Occupational Exposure Not Asked Hobby Hazards Not Asked Sleep Concern Not Asked Stress Concern Not Asked Weight Concern Not Asked Special Diet Not Asked Back Care Not Asked Exercise Yes Comment: walking Bike Helmet Not Asked Seat Belt Not Asked Self-Exams Not Asked Social History Narrative Not on file Social Determinants of Health Financial Resource Strain: Not on file Food Insecurity: Not on file Transportation Needs: Not on file Physical Activity: Not on file Stress: Not on file Social Connections: Not on file Intimate Partner Violence: Not on file Housing Stability: Not on file PMH: Past Medical History: Diagnosis Date Abnormal Papanicolaou smear of vagina and vaginal HPV LGSIL, nl colpo 2002 Dyslipidemia 11/04/2022 CARRIE (generalized anxiety disorder) 12/09/2022 Melanocytic nevi of face 07/22/2012 Migraine with aura and without status migrainosus, not intractable 07/18/2013 Other congenital anomaly of uterus Uterine Anomaly,VERNA Didelphus, vag septum Past Surgical History: Procedure Laterality Date COLPOSCOPY OF CERVIX W/BIOPSY pt has 2 cervix Outpatient Medications Marked as Taking for the 04/16/23 encounter (Office Visit) with COLIN Tadeo Medication Sig Multivitamin Women Oral Tablet Take 1 Tablet by mouth daily. medroxyPROGESTERone Acetate 150 MG/ML Intramuscular Suspension SUMAtriptan Succinate 50 MG Oral Tablet (Imitrex) TAKE 1 TABLET BY MOUTH NEEDED FOR MIGRAINE HEADACHE FOR ONE DOSE. MAY REPEAT DOSE AFTER 2 HOURS NEEDED. DO NOT EXCEED 4 TABLETS PER DAY Albuterol Sulfate HFA 108 (90 Base) MCG/ACT Inhalation Aerosol Solution Inhale by mouth 2 Puffs every 6 hours as needed for Wheezing. Review of patient's allergies indicates: Allergen Reactions Oxycodone Nausea/vomiting Most Recent Immunizations Administered Date(s) Administered COVID-19 mRNA, LNP-s, No Preserve, 2-Dose Series ([email or web address]) 10/06/2020 SEASONAL INFLUENZA, PF, 6 M & Above, IM , (FLULAVAL or FLUZONE) 04/11/2019 Seasonal Influenza, Split, IIV3, With Preserve, Inj 06/02/2014 TDAP (age 10 and older)(Boostrix) 02/04/2021 TDAP (age 11 and older)(Adacel) 11/30/2009 Review of Systems: Physical Exam BP 128/84 (BP Site: Right Arm, BP Position: Sitting, BP Cuff Size: Large) | Pulse 76 | Temp 37.3 C (99.2 F) (Tympanic) | Resp 16 | Wt 107.5 kg (236 lb 14.4 oz) | BMI 39.42 kg/m | BSA 2.22 m Physical Exam Constitutional: Appearance: Normal appearance. HENT: Head: Normocephalic. Musculoskeletal: Left shoulder: Tenderness present. No swelling, deformity or effusion. Normal range of motion. Normal strength. Normal pulse. Arms: Cervical back: Neck supple. Comments: Total of 4 sutures removed on distal humerus, 2 sutures on elbow. All approximated well without erythema, drainage, warmth. Mild skin irritation adjacent to dressing. Tenderness reproducible at the lateral deltoid and L trapezius muscle. No neck pain. No appreciablebicipital groove tenderness. No obvious bicipital deformity. No tenderness over the scapular spine,supraspinatus, AC joint, clavicle. FROM. Neurovascularly intact distally Skin: General: Skin is warm. Neurological: Mental Status: She is alert and oriented to person, place, and time. Psychiatric: Mood and Affect: Mood normal. Assessment and Plan 1. Dog bite of left upper extremity, subsequent encounter Healing without signs of infection 2. Encounter for removal of sutures Total of 6 sutures in L arm removed today 3. Pain of left upper arm Lateral deltoid, reproducible w/ palpation Intermittent ddx overuse, pinch nerve continue to monitor 4. Need for prophylactic vaccination and inoculation against influenza - INFLUENZA VACC, QUAD, PF, 6 MONTHS & UP, 0.5 ML, IM Wrap-Up I have advised the patient to call our office with any worsening or new symptoms. I spent a total of 20-29 minutes (exact time 25 mins) on the date of service in preparation, delivery, and documentation of the care provided to Brigitte Barkley excluding any time spent in the performance of separately billed services. ROSA Tadeo, COLIN [facility] [place] documented in this encounter Nursing Notes * Mike Lyn RN - 04/16/2023 10:48 AM EDT Chief Complaint Patient presents with Emergency Department Follow-Up Dog bite to left elbow area; suture removal; patient states she has pins/needles to left shoulder area to joint, first noticed this past Thursday - states it is consistent, and intensity fluctuates Pre-Administration Time Out Procedure Performed: Yes Patient Identified (Ask Name/Date of ): Yes Does the patient have a fever greater than 101 degrees today? No Patient allergic to latex? No Has the patient ever fainted after receiving an injection? No VFC Stock: No Immunization(s) verified: Yes, Immunization Name: Flu, VIS Sheet(s) given: Yes Verified Side and Site: Yes Verified Shot(s) with Parent(s)/Patient: Yes documented in this encounter Plan of Treatment Upcoming Encounters Date Type Specialty Care Team Description 07/27/2023 Office Visit Gastroenterology Tierra Mathias, DO [address] [place] [address] 04/18/2024 Office Visit Dermatology Neema Velazquez PA-C [address] [facility] [place] [address] Health Maintenance Due Date Last Done Comments [...] as of this encounter Visit Diagnoses Diagnosis Dog bite of left upper extremity, subsequent encounter- Primary Encounter for removal of sutures Pain of left upper arm Pain in limb Need for prophylactic vaccination and inoculation against influenza documented in this encounter Care Teams Car Builder Relationship Specialty Start Date End Date Domingo Marte MD [address] [place] [address] PCP - General Family Medicine 11/28/21 documented as of this encounter"
--- OUTSIDE RECORDS SUMMARY | 2023-05-24 22:20 | External Medical Summary | Summary of Care ---
Author Name Unknown Organization [facility] Address [address] [place] [address] Phone [phone] Care Team Providers Care Records Management Director Name Role Phone Domingo Marte MD Primary Care Provider [phone] Reason for Visit * Reason Onset Date Comments Follow Up 01/20/2023 Encounter Details Date Type Department Care Team Description 01/20/2023 Telephone Gastroenterology, [facility] [address] [place] [address] Tierra Mathias, DO [address] [place] 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 * Telephone Encounter - [...] 04/14/2023 Office Visit Dermatology Neema Velazquez PA-C [address] [place] [address] 07/27/2023 Office Visit Gastroenterology Tierra Mathias DO [address] [place] [address] Health Maintenance Due Date Last Done Comments [...] filedocumented as of this encounter Care Teams Records Management Director Relationship Specialty Start Date End Date Domingo Marte MD [address] [place] [address] PCP - General Family Medicine 11/28/21 documented as of this encounter
--- OUTSIDE RECORDS SUMMARY | 2023-05-24 22:20 | External Medical Summary | Summary of Care ---
Author Name Unknown Organization [facility] Address [address] [place] [address] Phone [phone] Care Team Providers Care Quill Fixer Name Role Phone Domingo Marte MD Primary Care Provider [phone] [phone] Encounter Details Date Type Department Care Team (Latest Contact Info) Description 05/16/2023 12:46 PM EST - 05/16/2023 11:59 PM EST Hospital Encounter Radiology, [facility] [address] [place] [address] Arrived Discharge Disposition: Home - Self Care Allergies Active Allergy Reactions Criticality Noted Date Comments Oxycodone Nausea/vomiting 05/23/2013 documented as of this encounter (statuses as of 05/17/2023) Medications Medication Sig Dispensed Refills Start Date [...] as of this encounter (statuses as of 05/17/2023) Active Problems Problem Noted Date Diagnosed Date Dyslipidemia 11/04/2022 Obesity, Class II, BMI 35-39.9, isolated (see ac tual BMI) 05/10/2021 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 Migraine with aura and witho ut status migrainosus, not intractable 07/18/2013 documented as of this encounter (statuses as of 05/17/2023) Resolved Problems Problem Noted Date Diagnosed Date [...] as of this encounter (statuses as of 05/17/2023) Immunizations Name Administration Dates Next Due COVID-19 mRNA, LNP-s, No Pre serve, 2-Dose Series ([employer]) 10/06/2020,09/15/2020 SEASONAL INFLUENZA, PF, 6 M & [...] on file documented as of this encounter Plan of Treatment Upcoming Encounters Date Type Department Care Team (Late st Contact Info) Description 07/27/2023 9:00 AM EST Office Visit Gastroenterology, [facility] [address] [place] [address] Tierra Mathias, [address] [place] [address] 04/18/2024 12:50 PM EDT Office Visit Dermatology [place] [address] [facility] [place] [address] Neema Velazquez PA-C [address] [facility] [place] [address] Health Maintenance Due Date Last Done Comments [...] Not on filedocumented as of this encounter Procedures Procedure Name Priority Date/Time Associated Diagnosis Comments US ABDOMEN LIMITED Routine 05/16/2023 2: 22 PM EST RUQ abdominal pain documented in this encounter Results * US ABDOMEN LIMITED (05/16/2023 2:22 PM EST) Anatomical Region Laterality Modality Abdomen, Body Ultrasound 05/16/2023 3:23 PM EST Impressions 05/16/2023 3:20 PM EST IMPRESSION 1. Hepatic steatosis. 2. Cholelithiasis. Narrative 05/16/2023 3:20 PM EST EXAM US ABDOMEN LIMITED-05/16/2023 2:22 pm HISTORY intermittent RUQ pain suggestive of gallstones TECHNIQUE Sonogram of the right upper quadrant. COMPARISON None FINDINGS LIVER: Steatosis. No focal lesion. BILE DUCTS: No intrahepatic or extrahepatic duct dilatation. The common bile duct measures 2 mm. GALLBLADDER: Cholelithiasis. No definite gallbladder wall thickening, pericholecystic fluid, or sonographic Diaz's sign. PANCREAS: Visualized portions are unremarkable. RIGHT KIDNEY: 11.7 cm in length. No hydronephrosis, shadowing calculi, or focal lesion. OTHER: No ascites. Procedure Note Cesar Whitt MD - 05/16/2023 EXAM US ABDOMEN LIMITED-05/16/2023 2:22 pm HISTORY intermittent RUQ pain suggestive of gallstones TECHNIQUE Sonogram of the right upper quadrant. COMPARISON None FINDINGS LIVER: Steatosis. No focal lesion. BILE DUCTS: No intrahepatic or extrahepatic duct dilatation. The commonbile duct measures 2 mm. GALLBLADDER: Cholelithiasis. No definite gallbladder wall thickening,pericholecystic fluid, or sonographic Diaz's sign. PANCREAS: Visualized portions are unremarkable. RIGHT KIDNEY: 11.7 cm in length. No hydronephrosis, shadowing calculi, orfocal lesion. OTHER: No ascites. IMPRESSION IMPRESSION 1. Hepatic steatosis. 2. Cholelithiasis. Maria Esther Evans MD RAD ULTRASOUND documented in this encounter Visit Diagnoses Diagnosis RUQ abdominal pain Abdominal pain, right upper quadrant documented in this encounter Care Teams Quill Fixer Relationship Specialty Start Date End Date Domingo Marte MD [address] [facility] [place] [address] PCP - General Family Medicine 11/28/21 documented as of this encounter
--- OUTSIDE RECORDS SUMMARY | 2023-05-24 22:20 | External Medical Summary | Summary of Care ---
Author Name Unknown Organization [facility] Address [address] [place] [address] Phone [phone] Care Team Providers Care Retail Department Manager Name Role Phone Domingo Marte MD Primary Care Provider [phone] [phone] Reason for Visit * Reason Onset Date Comments Forms Request 05/18/2023 Encounter Details Date Type Department Care Team (Late st Contact Info) Description 05/18/2023 Telephone General Surgery, [facility] [address] [place], [place] [id number] Services, Scheduling [address] [place] [address] Forms Request Allergies Active Allergy Reactions Criticality [...] mRNA, LNP-s, No Pre serve, 2-Dose Series ([employer]) 10/06/2020,09/15/2020 SEASONAL INFLUENZA, PF, 6 M & [...] encounter Miscellaneous Notes * Telephone Encounter - Glenis Cagle OSA - 05/18/2023 2:46 PM EST Pt employer sent over [facility] paperwork for Dr. Downing. 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 If Dr. Downing is agreeable to this the pt needs a separate letter letting them know she can still do this position. Please send back with [facility] paperwork. documented in this encounter Plan of Treatment Upcoming Encounters Date Type Department Care Team (Late st Contact Info) Description 06/15/2023 11:45 AM EST Office Visit General Surgery, [facility] [address] [place] [address] Wing Downing MD [address] [place] [address] 07/27/2023 9:00 AM EST Office Visit Gastroenterology, [facility] [address] [place] [address] Tierra Mathias, [address] [place] [address] 04/18/2024 12:50 PM EDT Office [facility] [address] [facility] [address] Neema Velazquez PA-C [address] [facility] [place] [address] Health Maintenance Due Date Last Done Comments [...] filedocumented as of this encounter Care Teams Retail Department Manager Relationship Specialty Start Date End Date Domingo Marte MD [address] [place] [address] PCP - General Family Medicine 11/28/21 documented as of this encounter
--- OUTSIDE RECORDS SUMMARY | 2023-05-24 22:20 | External Medical Summary | Summary of Care ---
Author Name Unknown Organization [facility] Address [address] [place] [address] Phone [phone] Care Team Providers Care Aviation Maintenance Instructor Name Role Phone Domingo Marte MD Primary Care Provider [phone] Reason for Visit * Reason Onset Date Comments Follow Up 01/20/2023 Encounter Details Date Type Department Care Team Description 01/20/2023 Telephone Gastroenterology, [facility] [address] [place] [address] Tierra Mathias, DO [address] [place] [address] Follow Up Allergies Active Allergy Reactions Severity [...] colonoscopy anEGD. Orders placed. Transferred to scheduling. I am not sure why this routed several times to scheduling pools. please ignore. She is scheduled. * Telephone Encounter - Antoine Torrez RN - 02/06/2023 11:30 AM EDT Called, went straight to , [facility] [place] with return #. * [...] 3 Office Visit Dermatology Neema Velazquez PA-C [address] [facility] [place] [address] 4 Hospital Encounter Endoscopy Tierra Mathias, DO [address] [place] [address] 4 Surgery Endoscopy Tierra Mathias, DO [address] [place] [address] ESOPHAGOGASTRODUODENOSCOPY (EGD), FLEXIBLE, TRANSORAL, DIAGNOSTIC 4 Office Visit Gastroenterology Tierra Mathias, DO [address] [place] [address] Scheduled Orders Name Type Priority Associated Diagnoses [...] stomach documented in this encounter Care Teams Aviation Maintenance Instructor Relationship Specialty Start Date End Date Domingo Marte MD [address] [place] [address] PCP - General Family Medicine 11/28/21 documented as of this encounter
--- OUTSIDE RECORDS SUMMARY | 2023-05-24 22:20 | External Medical Summary | Summary of Care ---
Author Name Unknown Organization [facility] Address [address] [place] [address] Phone [phone] Care Team Providers Care Auto Body Shop Manager Name Role Phone Domingo Marte MD Primary Care Provider +1 [phone] Reason for Visit * Reason Comments Skin Check FBSE - mole check. H X Benign melanocytic nevus x2. HX dysplastic melanocytic nevus with mild atypia.Concerning spots she will point out. Check stitches on left arm from a dog bite - she just wants you to look at them. Encounter Details Date Type Department Care Team (Late st Contact Info) Description 04/14/2023 12:50 PM EDT Office Visit Dermatology [facility] [address] [place] [address] Neema Velazquez PA-C [address] [place] [address] Seborrheic keratosis*; Dog bite, subsequent encounter; Multiple pigmented nevi; Skin exam, screening for cancer Allergies Active Allergy Reactions Criticality Noted Date [...] 150 MG/ML Intramuscular Suspension 0 04/02/2023 Active documented as of this encounter (statuses [...] 11/14/2020 02/04/2021 Viral URI with cough 11/08/2020 08 021 Melanocytic nevi of face 07/22/201202/2021 ADVANCE [...] mRNA, LNP-s, No Pre serve, 2-Dose Series ([employer]) 10/06/2020,09/15/2020 SEASONAL INFLUENZA, PF, 6 M & [...] as of this encounter Progress Notes * Nish Patel MD - 05/14/2023 1:22 PM EST I have reviewed the charting notes and orders and associated images and agree with the assessment and plan of Neema Son PA-C . Nish Patel MD., Dermatology [facility] Outpatient Specialty Departments [facility] [place] [address] * Neema Velazquez PA-C - 04/14/2023 12:55 PM EDT Nursing Notes: Ratna Glez LPN 04/14/23 1247 Signed Chief Complaint Patient presents with Skin Check FBSE - mole check. HX Benign melanocytic nevus x2. HX dysplastic melanocytic nevus with mild atypia. Concerning spots she will point out. Check stitches on left arm from a dog bite - she just wants you to look at them. Last visit - 04/08/2022 SUBJECTIVE: HPI: Brigitte Barkley is a 42 year old female who is an established patient seen for follow-up full skin exam. Patient last visit on 04/08/22. Has several concerning lesions. Recently had sutures placed by [facility] from dog bite. Has f/u with PCP scheduled. Healing well without complaint. No hx of skin cancer Hx of mildly atypical nevi +hx tanning bed use Fmhx of nonmelanoma skin cancer REVIEW OF SYSTEMS: See HPI- all other findings negative Constitutional: (-) fever, chills, sweats, weight loss Cardiovascular: (-) lower extremity edema Skin: (-) no rash or new or changing moles or skin lesions MEDICA TIONS: Current Outpatient Medications Medication Sig Dispense Refill [...] 4 TABLETS PER DAY 10 Tablet 5 medroxyPROGESTERone Acetate 150 MG/ML Intramuscular Suspension No current facility-administered medications for this visit. ALLERG Y: Oxycodone OBJECTIVE: GEN: Healthy, alert, no distress, appears oriented, pleasant, and cooperative. PSYCH: Appropriate mood and affect, alert SKIN: Detailed exam of scalp, hair, face including lids and lips, ears, neck, chest, back, abdomen,buttocks, bilateral upper extremities and bilateral lower extremities including the nails and digits was completed and are within normal limits with the following exceptions: 1. Scattered benign appearing lesions over examined skin including scattered benign and relatively monomorphic appearing melanocytic nevi, waxy flesh- colored, greyish brown benign and non-inflamed appearing stuck-on papules and plaques, benign and uniform appearing brown macules and patches in sun exposed areas, and bright red benign appearing dome-shaped papules and macules. 2. Lacerations closed with sutures of L medial arm ASSESSMENT/PLAN: 1. Seborrheic Keratosis -Reassured of the benign nature of lesion -Discussed with patient that they may get more of these lesions in the future -If there are any lesions that become irritated, bleed, or painful to return to clinic for evaluation -No current treatment necessary at this time 2. Multiple benign-appearing nevi - No features concerning for malignancy on exam today. - Continue to monitor with monthly self-skin exams. - Patient counseled on ABCDEs of melanoma. - Discussed and emphasized importance of sun protection including broadband, water-resistant, SPF 30 or greater sunscreen with reapplication q2h or after swimming/excessive perspiration and sun protective attire (wide-brimmed hats, long pants/shirt, sunglasses). - Patient to contact physician for any new or changing lesions or other concerns. 3. Routine Skin Examination For Skin Cancer -Educated patient on ABCDE's. -Advised patient that if they notice any of these changes to please call for a follow-up appointment as soon as possible. -Counseled patient on criteria for good sunscreen including SPF 30 or higher, broad spectrum (UVA and UVB) and water resistant (up to 40 to 80 minutes). Advised to reapply sunscreen every 2 hours andafter swimming or profuse sweating. Advised to wear protective clothing when out in the sun including long sleeved shirt, pants, wide-brimmed hat and sunglasses. Informed to seek shade during 10 AM to 4 PM when the sun's rays are the strongest. -Advised to perform routine (at least once a year) skin self-examinations. Advised to contact theirdermatologist immediately if they notice any new or changing skin lesions. Patient alone today. Follow-up: 1 year Photos taken, patient consented to photos taken. Applicable photos (if any) and chart reviewed by Dr. Nish Patel The patient was encouraged to contact me with any further questions or concerns. Neema Velazquez PA-C 04/14/2023 12:55 PM documented in this encounter Nursing Notes * Ratna Glez LPN - 04/14/2023 12:46 PM EDT Chief Complaint Patient presents with Skin Check FBSE - mole check. HX Benign melanocytic nevus x2. HX dysplastic melanocytic nevus with mild atypia. Concerning spots she will point out. Check stitches on left arm from a dog bite - she just wants you to look at them. Last visit - 04/08/2022 documented in this encounter Plan of Treatment Upcoming Encounters Date Type Department Care Team (Late st Contact Info) Description 05/14/2023 1:40 PM EST Office Visit Family Practice [facility] [address] [place] [address] Maria Esther Evans MD [address] [place] [address] 07/27/2023 9:00 AM EST Office Visit Gastroenterology, [facility] [address] [place] [address] Tierra Mathias DO [address] [place] [address] 04/18/2024 12:50 PM EDT Office Visit Dermatology [facility] [place] [address] [place] [address] Neema Velazquez PA-C [address] [place] [address] Health Maintenance Due Date Last Done Comments [...] Procedure Name Priority Date/Time Associated Diagnosis Comments DERM IMAGE (SITE) Routine 04/14/2023 Skin exam, screening for cancer documented in this encounter Results * DERM IMAGE (SITE) (04/14/2023) 04/14/2023 Neema Velazquez PA-C DIGITAL MASSIEL TOGRAPHY documented in this encounter Visit Diagnoses Diagnosis Seborrheic keratosis- Primary Other seborrheic keratosis Dog bite, subsequent encounter Multiple pigmented nevi Benign neoplasm of skin, site unspecified Skin exam, screening for cancer Screening for malignant neoplasm of the skin documented in this encounter Care Teams Auto Body Shop Manager Relationship Specialty Start Date End Date Domingo Marte MD [address] [facility] [place] [address] PCP - General Family Medicine 11/28/21 documented as of this encounter
--- OUTSIDE RECORDS SUMMARY | 2023-05-24 22:20 | External Medical Summary | Summary of Care ---
Author Name Unknown Organization [facility] Address [address] [place] [address] Phone [phone] Care Team Providers Care Extrusion Operator Name Role Phone Domingo Marte MD Primary Care Provider [phone] [phone] Encounter Details Date Type Department Care Team (Late st Contact Info) Description 05/15/2023 Orders Only Family Practice [facility] 132 [facility] [place] [address] Maria Esther Evans MD 132 [place] [address] Allergies Active Allergy Reactions Criticality Noted Date Comments Oxycodone Nausea/vomiting 05/23/2013 documented as of this encounter (statuses as of 05/15/2023) Medications Medication Sig Dispensed Refills Start Date [...] as of this encounter (statuses as of 05/15/2023) Active Problems Problem Noted Date Diagnosed Date Dyslipidemia 11/04/2022 Obesity, Class II, BMI 35-39.9, isolated (see ac tual BMI) 05/10/2021 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 Migraine with aura and witho ut status migrainosus, not intractable 07/18/2013 documented as of this encounter (statuses as of 05/15/2023) Resolved Problems Problem Noted Date Diagnosed Date [...] as of this encounter (statuses as of 05/15/2023) Immunizations Name Administration Dates Next Due COVID-19 mRNA, LNP-s, No Pre serve, 2-Dose Series ([employer]) 10/06/2020,09/15/2020 SEASONAL INFLUENZA, PF, 6 M & [...] Description 05/20/2023 11:45 AM EST Imaging Radiology [facility] 132 [facility] [place] [address] 07/27/2023 9:00 AM EST Office Visit Gastroenterology, [facility] 132 [facility] [place] [address] Tierra Mathias, 132 [facility] [place] [address] 04/18/2024 12:50 PM EDT Office Visit Dermatology [facility] [address] [facility] [place] [address] Neema Velazquez PA-C [address] [facility] [place] [address] Health Maintenance Due Date Last Done Comments Hepatitis B (1 of 3 - 3-dose series) 1981 HIV Screening 1996 Hepatitis C Screening 10/20/1999 HPV/Co-Test 10/20/2011 Cervical Cancer Screening 03/25/2021 Pap Smear 03/25/2021 03/25/2018, 06/29, 05/02/2010 (Done elsewhere), Additional history exists Mammogram 2021 03/30/2018 Depression Screening 02/04/2022 02/04/2021 COVID-19 Vaccine (3 24 season) 2023 10/06/2020, 09/15/2020 Diabetes Screening 05/14/2026 [...] Procedure Name Priority Date/Time Associated Diagnosis Comments CHEMISTRY-OUTSIDE Routine 05/14/2023 documented in this encounter Results * CHEMISTRY-OUTSIDE (05/14/2023) Not all results display below - see scan for full detail OUTSIDE LAB (SEE SCANNED REPORT) Comment:SEE SCAN: CMP, LIPAS E, CBCD CREATININE-OUTSID E LAB 0.72 0.50 - 0.99 MG/DL OUTSIDE LAB (SEE SCANNED REPORT) EGFR-OUTSIDE LAB 108 >=60 ML/MIN OUTSIDE LAB (SEE SCANNED REPORT) POTASSIUM-OUTSIDE LAB 3.9 3.5 - 5.3 MMOL/L OUTSIDE LAB (SEE SCANNED REPORT) GLUCOSE-OUTSIDE LAB 89 65 - 139 MG/DL OUTSIDE LAB (SEE SCANNED REPORT) HOURS FASTING OUTSID E LAB (SEE SCANNED REPORT) TRIGLYCERIDES-OUT SIDE LAB OUTSIDE LAB (SEE SCANNED REPORT) CHOLESTEROL-OUTSI DE LAB OUTSIDE LAB (SEE SCANNED REPORT) HDL-OUTSIDE LAB OUTS GAURAV LAB (SEE SCANNED REPORT) CHOL/HDL RATIO-OUTSIDE LAB OUTSIDE LA B (SEE SCANNED REPORT) LDL (CALCULATED)-OUTS GAURAV LAB OUTSIDE LAB (SEE SCANNED REPORT) LDL (DIRECT MEASURE)-OUTSIDE LAB OUTSIDE LAB (SEE SCANNED REPORT) HEMOGLOBIN, [id number] LAB OUTSIDE LAB (SEE SCANNED REPORT) PHOSPHORUS-OUTSID E LAB OUTSIDE LAB (SEE SCANNED REPORT) PTH-OUTSIDE LAB OUTS GAURAV LAB (SEE SCANNED REPORT) MICROALBUMIN RATIO-OUTSIDE LAB OUTSIDE LA B (SEE SCANNED REPORT) PROTEIN, UA-OUTSIDE LAB OUTSIDE LAB (SEE SCANNED REPORT) HEMOGLOBIN-OUTSID E LAB 14.7 11.7 - 15.5 G/DL OUTSIDE LAB (SEE SCANNED REPORT) 05/14/2023 Maria Esther Evans MD LABORATORY OUTSIDE LAB (SEE SCANNED REPORT) documented in this encounter Care Teams Extrusion Operator Relationship Specialty Start Date End Date Domingo Marte MD 132 [facility] [place] [address] PCP - General Family Medicine 11/28/21 documented as of this encounter
--- OUTSIDE RECORDS SUMMARY | 2023-05-24 22:20 | External Medical Summary | Summary of Care ---
Author Name Unknown Organization [facility] Address [address] [place] [address] Phone [phone] Care Team Providers Care Leather Roller Name Role Phone Domingo Marte MD Primary Care Provider [phone] Reason for Visit * Reason Comments Skin [...] 04/14/2023 12:50 PM EDT Office Visit Dermatology [facility] [address] [place] [address] Neema Velazquez PA-C [address] [place] [address] Seborrheic keratosis*; Dog bite, subsequent encounter; Multiple pigmented nevi; Skin exam, screening for cancer Allergies Active Allergy Reactions Criticality Noted Date Comments Oxycodone Nausea/vomiting 05/23/2013 documented as of this encounter (statuses as of 05/13/2023) Medications Medication Sig Dispensed Refills Start Date [...] as of this encounter (statuses as of 05/13/2023) Active Problems Problem Noted Date Diagnosed Date Dyslipidemia 11/04/2022 Obesity, Class II, BMI 35-39.9, isolated (see ac tual BMI) 05/10/2021 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 Migraine with aura and witho ut status migrainosus, not intractable 07/18/2013 documented as of this encounter (statuses as of 05/13/2023) Resolved Problems Problem Noted Date Diagnosed Date [...] as of this encounter (statuses as of 05/13/2023) Immunizations Name Administration Dates Next Due COVID-19 mRNA, LNP-s, No Pre serve, 2-Dose Series ([employer]) 10/06/2020,09/15/2020 SEASONAL INFLUENZA, PF, 6 M & Above, IM , (FLULAVAL or FLUZONE) 04/11/2019,04/08/2018 Seasonal Influenza, Split, IIV3, With Preserve, [...] as of this encounter Progress Notes * Neema Velazquez PA-C - 04/14/2023 12:55 [...] concerning lesions. Recently had sutures placed by [facility] from dog bite. Has f/u with [...] 1:40 PM EST Office Visit Family Practice [facility] [address] [place] [address] Maria Esther Evans MD [address] [place] [address] 07/27/2023 9:00 AM EST Office Visit Gastroenterology, [facility] [address] [place] [address] Tierra Mathias, DO [address] [place] [address] 04/18/2024 12:50 PM EDT Office Visit Dermatology [facility] [place] [address] [place] [address] Neema Velazquez PA-C [address] [place] [address] Health Maintenance Due Date Last Done Comments [...] skin documented in this encounter Care Teams Leather Roller Relationship Specialty Start Date End Date Domingo Marte MD 132 [facility] [place] [address] PCP - General Family Medicine 11/28/21 documented as of this encounter
--- OUTSIDE RECORDS SUMMARY | 2023-05-24 22:20 | External Medical Summary | Summary of Care ---
Author Name Unknown Organization [facility] Address [address] [place] [address] Phone [phone] Care Team Providers Care Certified Ophthalmic Surgical Assistant Name Role Phone Domingo Marte MD Primary Care Provider [phone] [phone] Reason for Visit * Reason Onset Date Comments Follow Up 01/20/2023 Encounter Details Date Type Department Care Team Description 01/20/2023 Telephone Gastroenterology, [facility] [address] [place] [address] Tierra Mathias, DO [address] [place] [place] [address] Follow Up Allergies Active Allergy Reactions Severity [...] Team Description 3 Office Visit Dermatology Neema Velzaquez PA-C [address] [facility] [place] [address] 4 Hospital Encounter Endoscopy Tierra Mathias, DO [address] [place] [address] 4 Surgery Endoscopy Tierra Mathias, DO [address] [place] [address] ESOPHAGOGASTRODUODENOSCOPY (EGD), FLEXIBLE, TRANSORAL, DIAGNOSTIC 4 Office Visit Gastroenterology Tierra Mathias, DO [address] [place] [address] Scheduled Orders Name Type Priority Associated Diagnoses [...] stomach documented in this encounter Care Teams Certified Ophthalmic Surgical Assistant Relationship Specialty Start Date End Date Domingo Marte MD [address] [place] [address] PCP - General Family Medicine 11/28/21 documented as of this encounter
--- OUTSIDE RECORDS SUMMARY | 2023-05-24 22:20 | External Medical Summary | Summary of Care ---
Author Name Unknown Organization [facility] Address [address] [place] [address] Phone [phone] Care Team Providers Care Grape Cutter Name Role Phone Domingo Marte MD Primary Care Provider [phone] Reason for Visit * Reason Comments NEW PATIENT * Evaluate & Treat - Unlimited Visits (Within 30 days (routine)) - Pending Review Specialty Diagnoses / Procedures Referred By Contchery t Referred To Contact General Surgery Diagnoses Calculus of gallbladder without cholecystitis without obstruction Maria Esther Evans MD [address] [place] [address] Referral ID Status Reason Start Date Expiration Date Visits Requested Visits Authorized [id number] Pending Review Specialty Services Required [phone] Encounter Details Date Type Department Care Team (Late st Contact Info) Description 05/18/2023 12:45 PM EST Office Visit General Surgery, [facility] [address] [place] [address] Wing Downing MD [address] [place] [address] Symptomatic cholelithiasis* Allergies Active Allergy Reactions Criticality Noted Date [...] Sign Reading Time Taken Comments Blood Pressure 135/90 05/18/2023 12:30 PM EST Pulse 87 05/18/2023 12:30 PM EST Temperature 36.5 C (97.7 F) 05/18/2023 12:[address] Respiratory Rate - - Oxygen Saturation - - Inhaled Oxygen Concentration - - Weight 105.9 kg (233 lb 8 oz) 05/18/2023 12:30 P M EST Height - - Body Mass Index 38.86 12/09/2022 6:21 PM EDT documented in this encounter Progress Notes * Wing Downing MD - 05/18/2023 12:33 PM EST [facility] [place] [address] [employer] Chief Complaint: Chief Complaint Patient presents with NEW PATIENT History of Present Illness: Brigitte Barkley is a 42 year old female who has been having right upper quadrant pain. Pain has been present for weeks. The pain does radiate to the patient's back. The patient does have nausea associated with it. The patient does not have any jaundice associated with it. The pain is made worse by fatty or fried foods. Characteristics of the pain are as follows: Location: RUQ with radiation to back Quality: sharp and stabbing Chronicity: Onset week(s) ago, stable since Aggravating factors: fatty foods Alleviating factors: none Associated symptoms: anorexia and nausea Past Medical History Past Medical History: Diagnosis Date Abnormal Papanicolaou smear of vagina and vaginal HPV LGSIL, nl colpo 2003 Dyslipidemia 11/04/2022 CARRIE (generalized anxiety disorder) 12/09/2022 Melanocytic nevi of face 07/22/2012 Migraine with aura and without status migrainosus, not intractable 07/18/2013 Other congenital anomaly of uterus Uterine Anomaly,VERNA Didelphus, vag septum Past Surgical History Past Surgical History: Procedure Laterality Date COLPOSCOPY OF CERVIX W/BIOPSY pt has 2 cervix Medications: Current Outpatient Medications Medication Sig Dispense Refill [...] 5 medroxyPROGESTERone Acetate 150 MG/ML Intramuscular Suspension Multivitamin Women Oral Tablet Take 1 Tablet by mouth daily. Simethicone 125 MG Oral Tablet Take by mouth. No current facility-administered medications for this visit. Allergies: Allergies as of 05/18/2023 - Reviewed 05/18/2023 Allergen Reaction Noted Oxycodone Nausea/vomiting 05/23/2013 Family History Family History Problem Relation Age of Onset Cancer Mother basal cell ca Diabetes Father possible diabetes Diabetes Grandfather (Paternal) dec Cancer Grandmother (Maternal) basal cell ca Ear Problems Grandmother (Maternal) Glaucoma Social History Social History Socioeconomic History Marital status: Spouse [...] Resource Strain: Not on file Food Insecurity: No Food Insecurity (11/08/2020) Hunger Vital Sign Worried About Running Out of Food in the Last Year: Never true Ran Out of Food in the Last Year: Never true Transportation Needs: Not on file Physical Activity: Not on file Stress: Not on file Social Connections: Not on file Intimate Partner Violence: Not on file Housing Stability: Not on file ROS: GEN: no weight loss, fever, fatigue HEENT: no changes in vision or hearing, no sinus problems, no sore throat, no hoarseness RESPIRATORY: no cough, wheezing, SOB or change in breathing CARDIOVASCULAR: no exertional chest pain, dyspnea, palpitations GI: see HPI , otherwise negative : no dysuria, hematuria, frequency MUSCULOSKELETAL: no change in joint pains, no new arthritis PSYCHIATRIC: no significant anxiety or depression, unchanged sleep pattern HEME: no bleeding tendency, no clotting tendency NEURO: no significant headache, no seizures , no tremors SKIN: no new rashes, no itching Physical Exam: Blood pressure 135/90, pulse 87, temperature 36.5 C (97.7 F), temperature source Tympanic, weight 105.9 kg (233 lb 8 oz), not currently . Constitutional: alert, healthy, well nourished Head: normocephalic, atraumatic Eyes: conjunctiva non-injected, sclera white Ears: pinna normal shape and color Nose: no purulent discharge Mouth: lips, mucosa, and tongue normal Neck: supple, no adenopathy Lungs: clear to auscultation, breath sounds are equal and symmetric Heart: regular rate & rhythm and no murmur, gallops or rubs Abdomen: soft, non-tender, normal bowel sounds, no hernias Back: normal curvature, normal ROM, no CVA tenderness Extremities: no joint deformities, effusion, or inflammation, no edema, no skin discoloration Neuro: alert, gait normal, motor normal Skin: no obvious rashes or significant lesions Imaging: EXAM US ABDOMEN LIMITED-05/16/2023 2:22 pm HISTORY [...] calculi, or focal lesion. OTHER: No ascites. IMPRESSION IMPRESSION 1. Hepatic steatosis. 2. Cholelithiasis. Impression: Brigitte Barkley is a 42 year old female with cholelithiasis. I feel that the patient is a good candidate for laparascopic cholecystectomy. Treatment Plan: Laparascopic cholecystectomy without intraoperative cholangiogram. Risks discussed with the patient, including but not limited to: bleeding, infection, conversion to open, injury to the common bile duct, bile leak, retained common bile duct stone requiring ERCP, postoperative diarrhea and intolerance to foods postoperatively. Expected same day nature of surgery and recovery periodreviewed. All of the patient's questions have been answered. Will schedule at [facility] on 05/25/2023. Attending: Wing Downing MD 05/18/2023 12:34 PM documented in this encounter Nursing Notes * Tanya Khan LPN - 05/18/2023 12:31 PM EST New patient referred by Dr Evans C/o- stomach pain ongoing for 3 years, 2 months a go pain has changed and is now radiating throughout back, and chest. Vomited in the past documented in this encounter Plan of Treatment Upcoming Encounters Date Type Department Care Team (Late st Contact Info) Description 06/15/2023 11:45 AM EST Office Visit General Surgery, [facility] [address] [place] [place] [address] Wing Downing MD [address] [place] [address] 07/27/2023 9:00 AM EST Office Visit Gastroenterology, [facility] [address] [place] [address] Tierra Mathias, [address] [place] [address] 04/18/2024 12:50 PM EDT Office Visit Dermatology [facility] [address] [place] [address] Neema Velazquez PA-C [address] [place] [address] Scheduled Referrals Name Type Priority Associated Diagnoses Orde r Schedule SURGERY REFERRAL OP Referral Within 30 days (routine) Calculus of gallbladder without cholecystitis without obstruction Ordered: 05/17/2023 Health Maintenance Due Date Last Done Comments [...] as of this encounter Visit Diagnoses Diagnosis Symptomatic cholelithiasis- Primary Calculus of gallbladder without mention of cholecystitis or obstruction documented in this encounter Care Teams Grape Cutter Relationship Specialty Start Date End Date Domingo Marte MD [address] [facility] [place] [address] PCP - General Family Medicine 11/28/21 documented as of this encounter
--- OUTSIDE RECORDS SUMMARY | 2023-05-24 22:20 | External Medical Summary | Summary of Care ---
Author Name Unknown Organization [facility] Address [address] [place] [address] Phone [phone] Care Team Providers Care Real Estate Sales Agent Name Role Phone Domingo Marte MD Primary Care Provider [phone] Reason for Visit * Reason Onset Date Comments Forms Request 05/18/2023 Encounter Details Date Type Department Care Team (Late st Contact Info) Description 05/18/2023 Telephone General Surgery, [facility] [address], [place] [id number] Services, Scheduling [address] [place] [address] Forms Request Allergies Active Allergy Reactions Criticality [...] mRNA, LNP-s, No Pre serve, 2-Dose Series (Captalis) 10/06/2020,09/15/2020 SEASONAL INFLUENZA, PF, 6 M & [...] 2:46 PM EST Pt employer sent over [facility] paperwork for Dr. Downing. 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 If Dr. Downing is agreeable to this the pt needs a separate letter letting them know she can still do this position. Please send back with [facility] paperwork. documented in this encounter Plan of Treatment Upcoming Encounters Date Type Department Care Team (Late st Contact Info) Description 05/25/2023 7:35 AM EST Office Visit Non [facility], Operating Room, [facility] [address] [facility] [place] [address] Wing Downing MD [address] [place] [address] 05/29/2023 11:20 AM EST Telemedicine Hepatology, [facility] [address] [place] [address] Lakesha Faye MD [address] [place] [address] [place] [address] 06/15/2023 11:45 AM EST Office Visit General Surgery, [facility] [address] [facility] [place] [address] Wing Downing MD [address] [place] [address] 07/27/2023 9:00 AM EST Office Visit Gastroenterology, [facility] [address] [place] [address] Tierra Mathias DO [address] [facility] [address] 04/18/2024 12:50 PM EDT Office Visit Dermatology [facility] [address] [place] [address] Neema Velazquez PA-C [address] [place] [address] Health Maintenance Due Date Last Done Comments [...] filedocumented as of this encounter Care Teams Real Estate Sales Agent Relationship Specialty Start Date End Date Domingo Marte MD [address] [place] [address] PCP - General Family Medicine 11/28/21 documented as of this encounter
[2023-05-24] MEDS ORDERED: FAMOTIDINE 20MG IV PUSH 20 MG/5 ML SYR IV STA (22:35)
[2023-05-24] MEDS ORDERED: KETOROLAC TROMETHAMINE 15 MG/ML VIAL IV STA (22:35)
[2023-05-24] MEDS ORDERED: SODIUM CHLORIDE 0.9% 1,000 ML IV STA (22:35)
[2023-05-24] MEDS ORDERED: ONDANSETRON INJ 2 MG/ML 2 ML VIAL IV STA (22:35)
--- NOTE | 2023-05-24 22:39 | Emergency Department Note ---
Impression & Plan Abdominal pain, RUQ, Gallstones, Nausea ED Provider Note Provider: Alden Garcia MD DATE OF SERVICE: 05/24/2023 CHIEF COMPLAINT: Right upper abdominal pain HISTORY OF PRESENT ILLNESS: Patient is a 42-year-old female presenting here today reporting onset around 8 PM with severe pain in the right upper abdomen with nausea and dry heaves. States she is held back to vomit. Patient denies diarrhea. Reports pain in the right upper abdomen rating through her right back. States it is similar to prior gallbladder attacks but more severe. Scheduled for elective gallbladder surgery here tomorrow. Had [place] this evening. Denies trauma. Denies urinary symptoms. Denies lower abdominal left- sided abdominal symptoms. Try to breathe through the pain and took some Tylenol as well as Pepto-Bismol earlier without significant improvement. PAST MEDICAL HISTORY: As noted above MEDICATIONS: Reviewed home medications with the patient SOCIAL HISTORY: Non-smoker PHYSICAL EXAM: GENERAL: alert and oriented standing uncomfortable in room Head: normocephalic and atraumatic EYES: No injection, discharge or icterus. NECK: Trachea midline. Supple. ENT: Mucous membranes pink and moist. LUNGS: Airway patent. No retractions slight tachypnea breathing through what appears to be pain. HEART: Regular rate and rhythm. ABDOMEN: Soft with tenderness of the right upper quadrant rating into the right flank. No lower abdominal tenderness or left-sided abdominal tenderness. SKIN: Acyanotic, warm, dry, without rashes EXTREMITIES: Without swelling, tenderness or deformity NEUROLOGICAL: No focal deficits. No aphasia. No facial droop or slurred speech. EK bpm normal sinus rhythm. No PVC or PAC. No acute ST segment elevation or depression with QTc 426. CONTINUOUS CARDIAC MONITORING: was ordered and showed a heart rate of 70s to 80s bpm in normal sinus rhythm PDMP was checked without noted issue. Patient's laboratory studies and imaging reviewed. Differential includes Appendicitis, ovarian cyst, ovarian torsion, ectopic , TOA, PID, infections, diverticulitis, UTI, obstruction, mesenteric ischemia, aortic pathology, inflammatory bowel disease, renal colic, PUD, pancreatitis, biliary pathology, hernia, volvulus, constipation, as well as other pathologies. IMPRESSION/MEDICAL DECISION MAKING: Pain mainly in the right upper abdomen to the back region. Severe and refractory to Tylenol and Pepto-Bismol at home. Some nausea but no vomiting at this time. Dry heaving. Given some Zofran as well as IV fluid, Pepcid, given her severe reaction to opioids Toradol here. Will get a gallbladder ultrasound tonight as well as basic laboratory studies. EKG obtained as well as troponin but lower suspicion for cardiac etiology. Doubt this represents acute PE and the tenderness in the upper abdomen on the right side seems more biliary related rather than related to kidney stone or PE. Blood work here without significant leukocytosis or anemia. Urinalysis with some blood 1+ leuk esterase, 10-30 white blood cells, 5-10 red blood cells, 10- 20 epithelial cells, and 2+ bacteria. Denies significant urinary symptoms however. The reproducibility upper abdominal pain does not seem that consistent with kidney stone. Negative COVID testing. Normal LFTs and lipase. No significant electrolyte abnormality. Ultrasound report per radiology of the right upper quadrant by report shows gallstone reportedly without signs of acute cholecystitis. Fatty liver noted. Discussed with the patient. Nausea is resolved. Pain starting to come back up in the upper abdomen. Discussed the option of going home but states the pain is starting to return some. Patient states narcotics make her feel ill and she does not want to use them if at all possible. Will bring in for observation pending surgery later today in shared decision-making with the patient. I will give her an empiric dose of Zosyn for antibiotic coverage with her upper abdominal pain likely biliary related. Hospitalist team contacted. DIAGNOSIS: Right upper quadrant abdominal pain, nausea, gallstones DISPOSITION: Hospitalist will evaluate Patient was agreeable with this plan. Past Med/Surg History Medical History History of anxiety Hx of migraines Pneumonia age 19, aspirated while under anesthesia for removal of a neck cyst and developed aspiration pneumonia; still has rescue inhaler as needed when she is sick Bronchitis Hx- no recent issues, tends to get every couple of years since having aspiration pneumonia age 19 Surgical History History of colonoscopy History of esophagogastroduodenoscopy (EGD) History of hysterosalpingogram Hx of removal of neck cyst History of dilatation and curettage History of epidural anesthesia "felt like it took a long time to wear off following surgery" Nausea and vomiting after administration of anesthetic agent [place] teeth extracted H/O breast biopsy 03/2018 bcc, right breast 10 oclock delivery delivered x1 Family History Grandfather (Paternal) Diabetes Father Thyroid disease Denies family history of Ovarian cancer Breast cancer Colorectal cancer Social History Smoking Status: Never smoker Second Hand Exposure: No; Do You Dip or Chew Tobacco: No; Hx Alcohol Use: Yes Alcohol type: wine Hx Substance Use: No Preferred Language: Brazilian Communication Ability: Effective 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 Postal Service Required: No Beliefs That Will Affect Care: None Current Living Situation: Spouse and Family Feels Safe at Home: Yes Assistive Devices: Contacts and Glasses Allergies Allergies Allergy/AdvReac Type Severity Reaction Status Date / Time morphine Allergy Mild GI SYMPTOMS Verified 05/20/23 09:34 oxycodone Allergy Mild GI SYMPTOMS Verified 05/20/23 09:34 Home Meds Home Medications Medication Instructions Recorded Confirmed albuterol sulfate 90 mcg/actuation 2 puff inhalation UD PRN Shortness 03/09/23 05/20/23 aerosol inhaler Of Breath multivitamin 1 tab PO QAM 03/09/23 05/20/23 simethicone 250 mg capsule 250 mg PO HS 03/09/23 05/20/23 sumatriptan succinate 50 mg tablet 50 mg PO UD PRN migraines 03/09/23 05/20/23 Previous Rx's Medication Instructions Recorded medroxyprogesterone 150 mg/mL 150 mg IM .COMPLEX #1 mL 01/22/23 intramuscular suspension (Depo-Provera) Results & Data (ED) Vital Signs Vital Signs - 24 hr 05/24/23 22:16 05/24/23 23:08 Temperature 37.0 C Temperature Source Temporal Artery Scan Pulse Rate 77 Pulse Rate [Left Apical] 80 Respiratory Rate 16 13 Respiratory Effort / Characteristics Non-Labored Spontaneous Respiratory Depth Normal Blood Pressure 157/95 H Blood Pressure [Right Arm] 133/92 Blood Pressure Mean 115 Blood Pressure Mean [Right Arm] 105 Blood Pressure Position Sitting Pulse Oximetry 98 95 Oxygen Delivery Method Room Air Room Air Sepsis Recent Fever Within 48 Hours No Sepsis New/Unexplained Change in Mental Status N/A Sepsis Action Taken by Nursing No Action Required Laboratory Data 05/24/23 22:48 11/26/23 22:48 Lab Results 05/24/23 05/24/23 05/24/23 Range/Units 22:41 22:48 23:03 WBC 9.97 (4.8-10.8) K/ul RBC 4.79 (4.20-5.40) M/uL Hgb 14.8 (12.0-16.0) g/dl Hct 44.0 (37.0-47.0) % MCV 91.9 (80.0-100.0) fL MCH 30.9 (25.0-34.0) pg MCHC 33.6 (32.0-36.0) g/dL RDW Std Deviation 43.4 (36.4-46.3) fL RDW Coeff of Ana 12.9 (11.5-14.5) % Plt Count 371 (130-400) K/uL MPV 9.0 L (9.4-12.4) fL Immature Gran % (Auto) 0.3 % Neut % (Auto) 59.1 % Lymph % (Auto) 30.9 % Newberry % (Auto) 6.9 % Eos % (Auto) 2.3 % Baso % (Auto) 0.5 % Neut # (Auto) 5.89 (1.40-6.50) K/uL Lymph # (Auto) 3.08 (1.20-3.40) K/uL Newberry # (Auto) 0.69 H (0.11-0.59) K/uL Eos # (Auto) 0.23 (0.00-0.50) K/uL Baso # (Auto) 0.05 (0.00-0.20) K/uL Immature Gran # (Auto) 0.03 (0.01-0.20) K/uL PT 10.9 (9.0-12.0) Seconds INR 1.0 (0.9-1.1) Sodium 138 (136-145) mmol/L Potassium 3.7 (3.5-5.1) mmol/L Chloride 108 H (98-107) mmol/L Carbon Dioxide 23 (21-32) mmol/L Anion Gap 7 (3-11) BUN 13 (6-23) mg/dl Creatinine 0.81 (0.6-1.2) mg/dl Est Cr Clr Drug Dosing 98.5 ml/min Est GFR ( Amer) 104.6 ml/min Est GFR (Non-Af Amer) 90.2 ml/min BUN/Creatinine Ratio 16.0 (10-20) Glucose 100 H (70-99(Fasting)) mg/dl Calcium 9.2 (8.6-10.3) mg/dl Total Bilirubin 0.3 (0.2-1.0) mg/dl AST 14 (13-39) U/L ALT 13 (7-52) U/L Alkaline Phosphatase 56 (34-104) U/L Troponin I High Sens 2.8 (0-14) pg/ml Total Protein 6.9 (6.0-8.3) gm/dl Albumin 4.1 (3.4-5.0) gm/dl Globulin 2.8 (2.5-4.0) gm/dl Albumin/Globulin Ratio 1.5 (0.9-2) Lipase 31 (11-82) U/L Urine Color Yellow Urine Appearance Clear (Clear) Urine pH 6.0 (4.5-7.5) Ur Specific [place] 1.013 (1.000-1.030) Urine Protein Negative (Negative) Urine Glucose (UA) Negative (Negative) Urine Ketones Negative (Negative) Urine Blood 2+ H (Negative) Urine Nitrite Negative (Negative) Urine Bilirubin Negative (Negative) Urine Urobilinogen Negative (Negative) Ur Leukocyte Esterase 1+ H (Negative) Urine WBC (Auto) 10-30 H (0-5) /hpf Urine RBC (Auto) 5-10 H (0-4) /hpf U Hyaline Cast (Auto) 1-5 (0-5) /lpf U Epithel Cells (Auto) 10-20 H (0-5) /lpf Urine Bacteria (Auto) 2+ H (Negative) SARS-CoV-2, RNA, NAAT NEGATIVE (NEGATIVE) Administered Medications Piperacillin Sod/Tazobactam Sod (Zosyn) 4.5 gm in 100 mls @ 200 mls/hr IV NOW ONE Stop: 05/25/23 01:01 Last Admin: 05/25/23 00:37 Dose: 200 mls/hr Documented By: CHASE Discontinued Medications Sodium Chloride (Nss) 1,000 mls @ 999 mls/hr IV .Q1H1M STA Stop: 05/24/23 23:35 Last Infusion: 05/24/23 23:56 Dose: Infused Documented By: Admin: 05/24/23 22:55 Dose: 999 mls/hr Documented By: ABELARDO Famotidine (Pepcid 20mg Iv Push) 20 mg in 5 mls @ 2.5 mls/min IV NOW STA Stop: 05/24/23 22:36 Last Admin: 05/24/23 22:57 Dose: 2.5 mls/min Documented By: ABELARDO Ketorolac Tromethamine (Ketorolac Tromethamine 15 Mg/Ml Vial) 10 mg IV NOW STA Stop: 05/24/23 22:36 Last Admin: 05/24/23 22:55 Dose: 10 mg Documented By: ABELARDO Ondansetron HCl (Ondansetron Inj 2 Mg/Ml 2 Ml Vial) 4 mg IV NOW STA Stop: 05/24/23 22:36 Last Admin: 05/24/23 22:57 Dose: 4 mg Documented By: ABELARDO Imaging Data Radiologist's Impression: Gallbladder Ultrasound 05/24/23 22:36 Exam(s): US GALLBLADDER EXAM: US Abdomen Limited, Gallbladder CLINICAL HISTORY: Reason for exam: pain, nausea. TECHNIQUE: Real-time ultrasound of the right upper quadrant with image documentation. COMPARISON: 04/05/2008. FINDINGS: Limitations: Exam is limited to gas artifact and the bowel . Liver: The liver measures 16.2 cm. Multiple anechoic structures identified within the kidney consistent with liver cyst, largest seen between the left and middle hepatic vein measuring 1.2 x 1.0 x 1.6 cm. Diffuse increased echogenicity throughout the liver consistent with fatty infiltration. Gallbladder: At least one gallstone measuring 1.6 cm seen at the gallbladder neck. The gallbladder wall measures 1.6 mm. Common bile duct: The common bile duct measures 3.4 mm. No stones. No dilation. Pancreas: There is significant obscuration of the pancreas. Right kidney: The right kidney is unremarkable with no hydronephrosis or stone. IMPRESSION: 1. Gallstone with no signs of acute cholecystitis. Diffuse fatty liver. 2. Remainder of the right upper quadrant ultrasound unremarkable. Electronically signed by: Lena Phan MD 05/25/23 00:22 AM Discharge Plan Visit Data Chief Complaint: Flank Pain Stated Complaint: GALL BLADDER [id number] ED Provider: Alden Garcia Discharge Problem: Abdominal pain, RUQ, Gallstones, Nausea Patient Disposition: Being Evaluated by Hospitalist Forms Stand Alone Forms: My [facility] [place] [employer] Prescriptions Prescriptions: No Action medroxyprogesterone [Depo-Provera] 150 mg/mL suspension 150 mg IM .COMPLEX Qty: 1 3RF Rx Instructions: 150 mg intramuscularly q12wks; multivitamin Tablet 1 tab PO QAM sumatriptan succinate 50 mg tablet 50 mg PO UD PRN (Reason: migraines) albuterol sulfate 90 mcg/actuation HFA aerosol inhaler 2 puff INHALATION UD PRN (Reason: Shortness Of Breath) Patient Comments: has not used in a few years, usually only when sick simethicone 250 mg Capsule 250 mg PO HS Referrals Referrals: Domingo Marte MD [Primary Care Provider] -
[2023-05-24 23:20] LABS: Appearance Urine Clear (Clear); Bacteria Urine Automated 2+ (Negative); Bilirubin Urine Negative (Negative); Blood Urine 2+ (Negative); Color Urine Yellow; Glucose Urine UA Negative (Negative); Ketones Urine Negative (Negative); Leukocyte Esterase Urine 1+ (Negative); Nitrite Urine Negative (Negative); Protein Urine Negative (Negative); Specific Gravity Urine 1.013 (1.000-1.030); Urobilinogen Urine Negative (Negative)
[2023-05-24 23:22] LABS: Basophils # (auto) 0.05 K/uL (0.00-0.20); Basophils % (auto) 0.5 %; Eosinophils # (auto) 0.23 K/uL (0.00-0.50); Eosinophils % (auto) 2.3 %; Hemoglobin 14.8 g/dl (12.0-16.0); Immature Granulocytes # (auto) 0.03 K/uL (0.01-0.20); Immature Granulocytes % (auto) 0.3 %; Lymphocytes # (auto) 3.08 K/uL (1.20-3.40); Lymphocytes % (auto) 30.9 %; Mean Corpuscular Hemoglobin 30.9 pg (25.0-34.0); Mean Corpuscular Hgb Conc 33.6 g/dL (32.0-36.0); Mean Corpuscular Volume 91.9 fL (80.0-100.0); Monocytes # (auto) 0.69 K/uL (0.11-0.59); Monocytes % (auto) 6.9 %; Neutrophils # (auto) 5.89 K/uL (1.40-6.50); Neutrophils % (auto) 59.1 %; Platelet Count 371 K/uL (130-400); RDW Coefficient of Variation 12.9 % (11.5-14.5); RDW Standard Deviation 43.4 fL (36.4-46.3); Red Blood Count 4.79 M/uL (4.20-5.40); White Blood Count 9.97 K/ul (4.8-10.8)
[2023-05-24 23:38] LABS: Albumin Globulin Ratio 1.5 (0.9-2); Albumin Level 4.1 gm/dl (3.4-5.0); Bilirubin,Total 0.3 mg/dl (0.2-1.0); Calcium 9.2 mg/dl (8.6-10.3); Creatinine Clr Calc Pharmacy 98.5 ml/min; Est GFR (African American) 104.6 ml/min; Est GFR (Non-African American) 90.2 ml/min; Globulin 2.8 gm/dl (2.5-4.0); Potassium 3.7 mmol/L (3.5-5.1); Total Protein 6.9 gm/dl (6.0-8.3)
[2023-05-24 23:44] LABS: Troponin I High Sensitivity 2.8 pg/ml (0-14)
[2023-05-24 23:54] LABS: Prothrombin Time 10.9 Seconds (9.0-12.0)
--- NOTE | 2023-05-25 00:22 | Ultrasound Report ---
Exam(s): US GALLBLADDER EXAM: US Abdomen Limited, Gallbladder CLINICAL HISTORY: Reason for exam: pain, nausea. TECHNIQUE: Real-time ultrasound of the right upper quadrant with image documentation. COMPARISON: 04/05/2008. FINDINGS: Limitations: Exam is limited to gas artifact and the bowel . Liver: The liver measures 16.2 cm. Multiple anechoic structures identified within the kidney consistent with liver cyst, largest seen between the left and middle hepatic vein measuring 1.2 x 1.0 x 1.6 cm. Diffuse increased echogenicity throughout the liver consistent with fatty infiltration. Gallbladder: At least one gallstone measuring 1.6 cm seen at the gallbladder neck. The gallbladder wall measures 1.6 mm. Common bile duct: The common bile duct measures 3.4 mm. No stones. No dilation. Pancreas: There is significant obscuration of the pancreas. Right kidney: The right kidney is unremarkable with no hydronephrosis or stone. IMPRESSION: 1. Gallstone with no signs of acute cholecystitis. Diffuse fatty liver. 2. Remainder of the right upper quadrant ultrasound unremarkable. Electronically signed by: Lena Phan MD 05/25/23 00:22 AM
[2023-05-25] MEDS ORDERED: PIPERACILLIN/TAZOBACTAM 4.5 GM/100 ML BAG IV ONE (00:32)
--- NOTE | 2023-05-25 01:17 | Surgery Consultation ---
Date of Consultation May 25, 2023 Assessment & Plan (1) Gallstones: Patient is being admitted on the hospitalist service. We recommend proceeding as follows: Provide analgesics provide antiemetics Antibiotics to be initiated IV fluids to be provided for hydration Patient should be kept n.p.o. The [facility] surgery department will be notified of patient's admission. I suspect they will go ahead with patient's planned cholecystectomy in the hospital tomorrow. From surgical perspective we will turn care over to Dr. Downing with further surgical plans at his discretion. Supervising Physician Co-Signing Physician Notes Patient discussed with Kerwin GUIDO, labs and reviewed, agree with above. Patient with known gallstones scheduled for surgery with Dr. Mayorga today, presented overnight with biliary colic. No acute cholecystitis or choledocholithiasis. Dr. Downing planning on proceeding with cholecystectomy today. Please contact him for further management. History of Present Illness Reason for Consultation: Cholelithiasis History of Present Illness This is a 42-year-old female who presented the emergency department secondary to abdominal pain. Patient notes that she is scheduled for elective cholecystectomy with Dr. Downing of [facility] surgery on 05/25/2023. Patient notes that earlier this evening she developed right upper quadrant abdominal pain approximately an hour and a half after eating. She does not note any other provocative factors and notes that the pain was relieved with medicines administered in the emergency department. She had nausea without vomiting and did not have any fevers, shakes, or chills. She notes that the symptoms are consistent with symptoms she has been experiencing the past prompting her planned cholecystectomy. She does note that the pain became unbearable so she presented to the emergency department. She has had prior abdominal surgeries in the form of a . Since arrival to hospital the patient has had labs and imaging which independent reviewed. Gallbladder ultrasound showed that patient had gallstones in the gallbladder neck without signs of cholecystitis. Labs include CBC white blood cell count, hemoglobin, hematocrit, platelet count were normal. Coagulation studies were normal. Chemistry profile showed sodium and potassium along with the BUN and creatinine were normal. There is no elevation of patient's LFTs or lipase. Urinalysis showed 1+ leukocyte Estrace and 10-30 white blood cells per high-power field and 2+ bacteria. The specimen was negative for nitrites. COVID test was negative. At the time of my interview the patient was resting comfortably in bed she was no distress. Allergies Allergy/AdvReac Type Severity Reaction Status Date / Time morphine Allergy Mild GI SYMPTOMS Verified 05/25/23 02:07 oxycodone Allergy Mild GI SYMPTOMS Verified 05/25/23 02:07 Home Medications Medication Instructions Recorded Confirmed Type medroxyprogesterone 150 mg/mL 150 mg IM .COMPLEX #1 mL 01/22/23 05/25/23 Rx intramuscular suspension (Depo-Provera) albuterol sulfate 90 mcg/actuation 2 puff inhalation UD PRN Shortness 03/09/23 05/25/23 History aerosol inhaler Of Breath multivitamin 1 tab PO QAM 03/09/23 05/25/23 History simethicone 250 mg capsule 250 mg PO HS 03/09/23 05/25/23 History sumatriptan succinate 50 mg tablet 50 mg PO UD PRN migraines 03/09/23 05/25/23 History Otc Less Sress Pill 2 tab PO DAILY 05/25/23 05/25/23 History Patient History Medical History History of anxiety Hx of migraines Pneumonia age 19, aspirated while under anesthesia for removal of a neck cyst and dev eloped aspiration pneumonia; still has rescue inhaler as needed when she is sick Bronchitis Hx- no recent issues, tends to get every couple of years since having aspiration pneumonia age 19 Surgical History History of colonoscopy History of esophagogastroduodenoscopy (EGD) History of hysterosalpingogram Hx of removal of neck cyst History of dilatation and curettage History of epidural anesthesia "felt like it took a long time to wear off following surgery" Nausea and vomiting after administration of anesthetic agent [place] teeth extracted H/O breast biopsy 03/2018 bcc, right breast 10 oclock delivery delivered x1 Family History Grandfather (Paternal) Diabetes Father Thyroid disease Denies family history of Ovarian cancer Breast cancer Colorectal cancer Social History Smoking Status: Never smoker Second Hand Exposure: No; Do You Dip or Chew Tobacco: No; Hx Alcohol Use: Yes Alcohol type: wine Hx Substance Use: No Preferred Language: Bermudian Communication Ability: Effective Bacteriologist Medical Required: No Beliefs That Will Affect Care: None Current Living Situation: Spouse Feels Safe at Home: Yes Safety Concerns: Feels Safe At This Time Assistive Devices: None Review of Systems Constitutional: no fever and no chills Ear, Nose, Mouth, Throat: no hearing loss Respiratory: no cough and no dyspnea Cardiovascular: no chest pain Gastrointestinal: as per Subjective / HPI Genitourinary: no dysuria Musculoskeletal: no back pain Integumentary: no rash Neurologic: no localized weakness Physical Exam Constitutional: WD/WN, vitals as above Eyes: + anicteric sclerae No sublingual jaundice noted ENMT: Ears: no external ear abnormality Neck: trachea midline Respiratory: normal respiratory effort; no respiratory distress and no labored breathing Cardiovascular: Rate/Rhythm: regular rate and regular rhythm Gastrointestinal (Abdomen): Abdomen is soft and nondistended. There is no rebound tenderness or guarding. The patient did have pain with palpation of the right upper quadrant. Musculoskeletal: No calf tenderness Skin: no rashes Neurologic: moves all extremities Psychiatric: A+Ox3, euthymic affect Results & Data Vital Signs (Past 12 Hours) Vital Signs Temp Pulse Pulse Resp BP BP Pulse Ox 05/25/23 00:48 69 16 134/81 99 05/24/23 23:08 80 13 133/92 95 05/24/23 22:16 37.0 C 77 16 157/95 H 98 O2 Del Method 05/25/23 00:48 Room Air 05/24/23 23:08 Room Air 05/24/23 22:16 Room Air PG Care Time/CCT Total # of Minutes Spent Total Time Spent with Patient: Total time spent is greater than 50% in coordination of care (as documented) at patient's floor/unit and/or counseling patient: Coding Level of Care Code 04952 IN/OBS CONSULT LVL 5,80M Diagnoses Gallstones K80.20
--- NOTE | 2023-05-25 02:42 | History & Physical Report ---
Date of Service May 25, 2023 Assessment & Plan (1) Biliary colic: Plan: 42-year-old female past med history significant for dyslipidemia, obesity, migraines with aura presents with right upper quadrant abdominal pain after eating [place] food. Patient was scheduled for elective cholecystectomy on Thursday. Biliary colic There is a plan for elective cholecystectomy in a.m. N.p.o., IV fluids, IV pain meds as needed, IV antiemetics as needed Surgery consult Empiric Zosyn Possible UTI On Zosyn Follow cultures History of migraines Will monitor DVT prophylaxis SCDs for now Disposition Medical floor Full code History of Present Illness Chief Complaint: Abdominal pain Primary Care Provider: Domingo Marte MD 42-year-old female past med history significant for dyslipidemia, obesity, migraines with aura presents with abdominal pain after eating [place] food. Patient is scheduled for elective cholecystectomy on Thursday. The pain was in right upper quadrant region 10/10 in severity and was radiating to the back and chest. Currently pain is improved with the pain medications. Pain was associated with nausea. No diarrhea or constipation. Normal bladder movements. No fevers. Currently no shortness of breath. No headache. Vision is okay. No sore throat, no cough. Hemodynamics are stable. Past medical history. As mentioned above. Past surgical history. Colposcopy of cervix with biopsy Social history. . No smoking. Alcohol occasional. No drug use. Family history. Maternal grandmother had a basal cell carcinoma. Glaucoma. Mother had basal cell carcinoma. Father had diabetes. Paternal grandfather had diabetes. Allergies Allergy/AdvReac Type Severity Reaction Status Date / Time morphine Allergy Mild GI SYMPTOMS Verified 05/25/23 02:07 oxycodone Allergy Mild GI SYMPTOMS Verified 05/25/23 02:07 Home Medications Medication Instructions Recorded Confirmed Type medroxyprogesterone 150 mg/mL 150 mg IM .COMPLEX #1 mL 01/22/23 05/25/23 Rx intramuscular suspension (Depo-Provera) albuterol sulfate 90 mcg/actuation 2 puff inhalation UD PRN Shortness 03/09/23 05/25/23 History aerosol inhaler Of Breath multivitamin 1 tab PO QAM 03/09/23 05/25/23 History simethicone 250 mg capsule 250 mg PO HS 03/09/23 05/25/23 History sumatriptan succinate 50 mg tablet 50 mg PO UD PRN migraines 03/09/23 05/25/23 History Otc Less Sress Pill 2 tab PO DAILY 05/25/23 05/25/23 History Past Med/Surg History Medical History History of anxiety Hx of migraines Pneumonia age 19, aspirated while under anesthesia for removal of a neck cyst and developed aspiration pneumonia; still has rescue inhaler as needed when she is sick Bronchitis Hx- no recent issues, tends to get every couple of years since having aspiration pneumonia age 19 Surgical History History of colonoscopy History of esophagogastroduodenoscopy (EGD) History of hysterosalpingogram Hx of removal of neck cyst History of dilatation and curettage History of epidural anesthesia "felt like it took a long time to wear off following surgery" Nausea and vomiting after administration of anesthetic agent [place] teeth extracted H/O breast biopsy 03/2018 bcc, right breast 10 oclock delivery delivered x1 Family History Grandfather (Paternal) Diabetes Father Thyroid disease Denies family history of Ovarian cancer Breast cancer Colorectal cancer Social History Smoking Status: Never smoker Second Hand Exposure: No; Do You Dip or Chew Tobacco: No; Hx Alcohol Use: Yes Alcohol type: wine Hx Substance Use: No Preferred Language: British Communication Ability: Effective Configuration Engineer Required: No Beliefs That Will Affect Care: None Current Living Situation: Spouse Feels Safe at Home: Yes Safety Concerns: Feels Safe At This Time Assistive Devices: Contacts Review of Systems Review of Systems: All systems reviewed & are unremarkable except as noted in HPI & below Physical Exam Physical Exam: General- Not in distress Head- atraumatic Eyes- PERRL. ENT- oropharynx clear Neck- supple, no JVD. Lungs- clear to auscultation No wheezing or crackles. Heart- regular rhythm; no murmur, no gallop. Abdomen- normal bowel sounds, soft, mild tenderness in RUQ region. No distension. Extremities- no pretibial edema, no erythema seen. Neuro- alert, oriented x 3; PERRL, no facial palsy; no dysarthria; moves extremities. Skin- warm & dry Results & Data Results & Data Vital Signs (Past 12 Hours) Vital Signs Temp Pulse Pulse Resp BP BP Pulse Ox 05/25/23 02:15 69 16 118/81 99 05/25/23 00:48 69 16 134/81 99 05/24/23 23:08 80 13 133/92 95 05/24/23 22:16 37.0 C 77 16 157/95 H 98 O2 Del Method 05/25/23 02:15 Room Air 05/25/23 00:48 Room Air 05/24/23 23:08 Room Air 05/24/23 22:16 Room Air Diagnostic Findings Laboratory Results WBC 9.97 K/ul (4.8-10.8) 05/24/23 22:48 RBC 4.79 M/uL (4.20-5.40) 05/24/23 22:48 Hgb 14.8 g/dl (12.0-16.0) 05/24/23 22:48 Hct 44.0 % (37.0-47.0) 05/24/23 22:48 MCV 91.9 fL (80.0-100.0) 05/24/23 22:48 MCH 30.9 pg (25.0-34.0) 05/24/23 22:48 MCHC 33.6 g/dL (32.0-36.0) 05/24/23 22:48 RDW Std Deviation 43.4 fL (36.4-46.3) 05/24/23 22:48 RDW Coeff of Ana 12.9 % (11.5-14.5) 05/24/23 22:48 Plt Count 371 K/uL (130-400) 05/24/23 22:48 MPV 9.0 fL (9.4-12.4) L 05/24/23 22:48 Immature Gran % (Auto) 0.3 % 05/24/23 22:48 Neut % (Auto) 59.1 % 05/24/23 22:48 Lymph % (Auto) 30.9 % 05/24/23 22:48 [place] % (Auto) 6.9 % 05/24/23 22:48 Eos % (Auto) 2.3 % 05/24/23 22:48 Baso % (Auto) 0.5 % 05/24/23 22:48 Neut # (Auto) 5.89 K/uL (1.40-6.50) 05/24/23 22:48 Lymph # (Auto) 3.08 K/uL (1.20-3.40) 05/24/23 22:48 [place] # (Auto) 0.69 K/uL (0.11-0.59) H 05/24/23 22:48 Eos # (Auto) 0.23 K/uL (0.00-0.50) 05/24/23 22:48 Baso # (Auto) 0.05 K/uL (0.00-0.20) 05/24/23 22:48 Immature Gran # (Auto) 0.03 K/uL (0.01-0.20) 05/24/23 22:48 PT 10.9 Seconds (9.0-12.0) 05/24/23 22:48 INR 1.0 (0.9-1.1) 05/24/23 22:48 Sodium 138 mmol/L (136-145) 05/24/23 22:48 Potassium 3.7 mmol/L (3.5-5.1) 05/24/23 22:48 Chloride 108 mmol/L (98-107) H 05/24/23 22:48 Carbon Dioxide 23 mmol/L (21-32) 05/24/23 22:48 Anion Gap 7 (3-11) 05/24/23 22:48 BUN 13 mg/dl (6-23) 05/24/23 22:48 Creatinine 0.81 mg/dl (0.6-1.2) 05/24/23 22:48 Est Cr Clr Drug Dosing 98.5 ml/min 05/24/23 22:48 Est GFR ( Amer) 104.6 ml/min 05/24/23 22:48 Est GFR (Non-Af Amer) 90.2 ml/min 05/24/23 22:48 BUN/Creatinine Ratio 16.0 (10-20) 05/24/23 22:48 Glucose 100 mg/dl (70-99(Fasting)) H 05/24/23 22:48 Calcium 9.2 mg/dl (8.6-10.3) 05/24/23 22:48 Total Bilirubin 0.3 mg/dl (0.2-1.0) 05/24/23 22:48 AST 14 U/L (13-39) 05/24/23 22:48 ALT 13 U/L (7-52) 05/24/23 22:48 Alkaline Phosphatase 56 U/L (34-104) 05/24/23 22:48 Troponin I High Sens 2.8 pg/ml (0-14) 05/24/23 22:48 Total Protein 6.9 gm/dl (6.0-8.3) 05/24/23 22:48 Albumin 4.1 gm/dl (3.4-5.0) 05/24/23 22:48 Globulin 2.8 gm/dl (2.5-4.0) 05/24/23 22:48 Albumin/Globulin Ratio 1.5 (0.9-2) 05/24/23 22:48 Lipase 31 U/L (11-82) 05/24/23 22:48 Urine Color Yellow 05/24/23 22:41 Urine Appearance Clear (Clear) 05/24/23 22:41 Urine pH 6.0 (4.5-7.5) 05/24/23 22:41 Ur Specific [place] 1.013 (1.000-1.030) 05/24/23 22:41 Urine Protein Negative (Negative) 05/24/23 22:41 Urine Glucose (UA) Negative (Negative) 05/24/23 22:41 Urine Ketones Negative (Negative) 05/24/23 22:41 Urine Blood 2+ (Negative) H 05/24/23 22:41 Urine Nitrite Negative (Negative) 05/24/23 22:41 Urine Bilirubin Negative (Negative) 05/24/23 22:41 Urine Urobilinogen Negative (Negative) 05/24/23 22:41 Ur Leukocyte Esterase 1+ (Negative) H 05/24/23 22:41 Urine WBC (Auto) 10-30 /hpf (0-5) H 05/24/23 22:41 Urine RBC (Auto) 5-10 /hpf (0-4) H 05/24/23 22:41 U Hyaline Cast (Auto) 1-5 /lpf (0-5) 05/24/23 22:41 U Epithel Cells (Auto) 10-20 /lpf (0-5) H 05/24/23 22:41 Urine Bacteria (Auto) 2+ (Negative) H 05/24/23 22:41 SARS-CoV-2, RNA, NAAT NEGATIVE (NEGATIVE) 05/24/23 23:03 Impressions Gallbladder Ultrasound 05/24/23 22:36 Exam(s): US GALLBLADDER EXAM: US Abdomen Limited, Gallbladder CLINICAL HISTORY: Reason for exam: pain, nausea. TECHNIQUE: Real-time ultrasound of the right upper quadrant with image documentation. COMPARISON: 04/05/2008. FINDINGS: Limitations: Exam is limited to gas artifact and the bowel . Liver: The liver measures 16.2 cm. Multiple anechoic structures identified within the kidney consistent with liver cyst, largest seen between the left and middle hepatic vein measuring 1.2 x 1.0 x 1.6 cm. Diffuse increased echogenicity throughout the liver consistent with fatty infiltration. Gallbladder: At least one gallstone measuring 1.6 cm seen at the gallbladder neck. The gallbladder wall measures 1.6 mm. Common bile duct: The common bile duct measures 3.4 mm. No stones. No dilation. Pancreas: There is significant obscuration of the pancreas. Right kidney: The right kidney is unremarkable with no hydronephrosis or stone. IMPRESSION: 1. Gallstone with no signs of acute cholecystitis. Diffuse fatty liver. 2. Remainder of the right upper quadrant ultrasound unremarkable. Electronically signed by: Lena Phan MD 05/25/23 00:22 AM ECG Additional Comments: ECG. Normal sinus rhythm at a rate of 78. No acute ST seen. Code Status & VTE Plan VTE Prophylaxis Plan VTE Prophylaxis will be ordered: Yes
[2023-05-25] MEDS ORDERED: ONDANSETRON INJ 2 MG/ML 2 ML VIAL IV PRN ×2 (03:55→11:44)
[2023-05-25] MEDS ORDERED: ALBUTEROL HFA 8 GM INHALER INH PRN (03:55)
[2023-05-25] MEDS ORDERED: KETOROLAC TROMETHAMINE 15 MG/ML VIAL IV PRN (03:55)
[2023-05-25] MEDS: D5W AND 1/2NSS 1,000 ML IV SCH ×2 (05:17→17:50)
[2023-05-25] MEDS: PIPERACILLIN/TAZOBACTAM 4.5 GM in DEXTROSE 5% MINI-B 100 ML IV SCH ×3 (05:17→23:34)
[2023-05-25] MEDS ORDERED: ACETAMINOPHEN 1000 MG/100 ML IV IV ONE (06:51)
--- NOTE | 2023-05-25 07:36 | History & Physical Bridge Note ---
Date of Service May 25, 2023 History & Physical Bridge Note I have examined the patient, reviewed the History & Physical and in the interval since the performance of the History & Physical I have noted the following changes of clinical significance: no changes noted
[2023-05-25 08:17] LABS: Basophils # (auto) 0.03 K/uL (0.00-0.20); Basophils % (auto) 0.4 %; Eosinophils # (auto) 0.16 K/uL (0.00-0.50); Eosinophils % (auto) 2.2 %; Hematocrit (blood only) 39.3 % (37.0-47.0); Hemoglobin 13.5 g/dl (12.0-16.0); Immature Granulocytes # (auto) 0.02 K/uL (0.01-0.20); Immature Granulocytes % (auto) 0.3 %; Lymphocytes # (auto) 1.96 K/uL (1.20-3.40); Lymphocytes % (auto) 26.7 %; Mean Corpuscular Hemoglobin 31.3 pg (25.0-34.0); Mean Corpuscular Hgb Conc 34.4 g/dL (32.0-36.0); Mean Corpuscular Volume 91.2 fL (80.0-100.0); Monocytes # (auto) 0.56 K/uL (0.11-0.59); Monocytes % (auto) 7.6 %; Neutrophils # (auto) 4.61 K/uL (1.40-6.50); Neutrophils % (auto) 62.8 %; Platelet Count 304 K/uL (130-400); RDW Coefficient of Variation 12.9 % (11.5-14.5); RDW Standard Deviation 42.9 fL (36.4-46.3); Red Blood Count 4.31 M/uL (4.20-5.40); White Blood Count 7.34 K/ul (4.8-10.8)
[2023-05-25 08:34] LABS: Albumin Level 3.5 gm/dl (3.4-5.0); BUN Creatinine Ratio 13.7 (10-20); Bilirubin Direct 0.1 mg/dl (0-0.2); Bilirubin,Total 0.6 mg/dl (0.2-1.0); Calcium 8.4 mg/dl (8.6-10.3); Creatinine Clr Calc Pharmacy 121.6 ml/min; Est GFR (African American) 118.6 ml/min; Est GFR (Non-African American) 102.3 ml/min; Potassium 3.6 mmol/L (3.5-5.1); Total Protein 5.8 gm/dl (6.0-8.3)
[2023-05-25 09:26] LABS: Pregnancy Test, Urine Negative (Negative)
[2023-05-25] MEDS ORDERED: SCOPOLAMINE 1 MG TDSY TD ONE (11:43)
[2023-05-25] MEDS ORDERED: ATROPINE SULFATE 0.1 MG/ML 10ML SYR IV PRN (11:44)
[2023-05-25] MEDS ORDERED: ePHEDrine sulfate 50 MG/ML AMP IV PRN (11:44)
[2023-05-25] MEDS ORDERED: PROMETHAZINE HCL 6.25 MG in SODIUM CHLORIDE 0.9% 50 ML IV PRN (11:44)
[2023-05-25] MEDS ORDERED: ROCURONIUM BROMIDE 10 MG/ML 5 ML VIAL IV ONE (11:53)
[2023-05-25] MEDS ORDERED: MIDAZOLAM HCL 1 MG/ML 2ML VIAL ONE (11:53)
[2023-05-25] MEDS ORDERED: LIDOCAINE 2% 2 ML VIAL/AMP(20MG/ML) INFIL ONE (11:53)
[2023-05-25] MEDS ORDERED: fentaNYL citrate PF 100 MCG/2 ML VIAL ONE ×2 (11:53→13:36)
[2023-05-25] MEDS ORDERED: PROPOFOL IV EMULSION 10 MG/ML 20 ML VIAL IV ONE (11:53)
[2023-05-25] MEDS ORDERED: ONDANSETRON INJ 2 MG/ML 2 ML VIAL ONE ×2 (11:53→13:51)
--- NOTE | 2023-05-25 12:12 | Anesthesiology Consultation ---
Date of Service May 25, 2023 Assessment & Plan Chart Review Chart Review: Acceptable Risk for Surgery and Patient NOT seen in Pre Admission Testing Consults Requested none ASA ASA2 Proposed Anesthesia Anesthesia Type: General Risk / Benefits Reviewed With: PT / POA / Parent / Guardian, Accepts Plan and Informed Consent Obtained Additional Comments: Patient with history of PONV and history of aspiration pneumonia after surgery in past. Will give scopalamine patch as well as intraop antiemetics and TIVA. Patient notes history of migraines with neurologic symptoms similar to stroke- like symptoms (visual changes, confusion). History Surgery Operation Date: 05/25/23 12:20 Proposed Procedures p Laparoscopic Cholecystectomy - Wing Downing MD Height/Weight Height: 5 ft 4 in Weight: 107.8 kg Allergies Allergy/AdvReac Type Severity Reaction Status Date / Time morphine Allergy Mild GI SYMPTOMS Verified 05/25/23 02:07 oxycodone Allergy Mild GI SYMPTOMS Verified 05/25/23 02:07 Medications Home Medications Medication Instructions Recorded Confirmed Last Taken medroxyprogesterone 150 mg/mL 150 mg IM .COMPLEX #1 mL 01/22/23 05/25/23 03/03/23 08:00 intramuscular suspension (Depo-Provera) albuterol sulfate 90 mcg/actuation 2 puff inhalation UD PRN Shortness 03/09/23 05/25/23 Unknown aerosol inhaler Of Breath multivitamin 1 tab PO QAM 03/09/23 05/25/23 03/15/23 08:00 simethicone 250 mg capsule 250 mg PO HS 03/09/23 05/25/23 03/15/23 21:00 sumatriptan succinate 50 mg tablet 50 mg PO UD PRN migraines 03/09/23 05/25/23 03/09/23 08:00 Otc Less Sress Pill 2 tab PO DAILY 05/25/23 05/25/23 Unknown Active Medications Generic Name Dose Route Start Last Admin Trade Name Freq PRN Reason Stop Dose Admin Dextrose/Sodium Chloride 1,000 mls @ 125 mls/hr 05/25/23 03:55 05/25/23 05:17 D5w And 1/2nss IV 06/24/23 03:54 125 mls/hr .Q8H KAMILAH Administration Piperacillin Sod/Tazobactam 100 mls @ 25 mls/hr 05/25/23 06:00 05/25/23 10:57 Sod 4.5 gm/ Dextrose IV 06/04/23 05:59 Infused Q8H [facility] Infusion Protocol NPO Date Last Intake of Fluids: 05/24/23 Time Last Intake of Fluids: 21:00 Date Last Intake of Solids: 05/24/23 Time Last Intake of Solids: 19:00 Past Medical History Medical History History of anxiety Hx of migraines Pneumonia age 19, aspirated while under anesthesia for removal of a neck cyst and developed aspiration pneumonia; still has rescue inhaler as needed when she is sick Bronchitis Hx- no recent issues, tends to get every couple of years since having aspiration pneumonia age 19 Exercise / Class Metabolic Activity II 4-5 Yardwork/Stairs/Walk up hill Past Family History Family History Grandfather (Paternal) Diabetes Father Thyroid disease Denies family history of Ovarian cancer Breast cancer Colorectal cancer Past Surgical History Surgical History History of colonoscopy History of esophagogastroduodenoscopy (EGD) History of hysterosalpingogram Hx of removal of neck cyst History of dilatation and curettage History of epidural anesthesia "felt like it took a long time to wear off following surgery" Nausea and vomiting after administration of anesthetic agent [place] teeth extracted H/O breast biopsy 03/2018 bcc, right breast 10 oclock delivery delivered x1 Past Anesthesia History No Hx of Anesthesia Complications and No Family Hx of Anesthesia Complications History of PONV History of PONV and Hx of Motion Sickness Social History Smoking Status: Never smoker Do You Dip or Chew Tobacco: No Hx Alcohol Use: Yes Alcohol type: wine alcohol intake frequency: 0-2 drinks per day Hx Substance Use: No substance use type: does not use Review of Systems ROS Unobtainable: All systems reviewed & are unremarkable except as noted in HPI & below Physical Exam Vital Signs Last Vital Signs Temp 37.0 C 05/25/23 11:13 Pulse 72 05/25/23 11:13 Resp 16 05/25/23 11:13 BP 137/85 05/25/23 11:13 Pulse Ox 96 05/25/23 11:13 O2 Del Method Room Air 05/25/23 11:13 Constitutional no acute distress ENMT Mouth: no TMJ abnormality Thyromental Distance: > or= 3.5 Finger Breadths Mallampati Class: II Neck normal visual inspection and trachea midline; neck extension not limited Respiratory normal respiratory effort Auscultation: lungs clear to auscultation bilaterally Cardiovascular Rate/Rhythm: regular rate and regular rhythm Heart Sounds: no murmur Musculoskeletal Spine: normal cervical ROM Extremities: full ROM of extremities Neurologic moves all extremities Psychiatric Orientation: alert and oriented x 3 Testing Laboratory Results 05/25/23 07:13 05/25/23 07:13 PT 10.9 Seconds (9.0-12.0) 05/24/23 22:48 INR 1.0 (0.9-1.1) 05/24/23 22:48 Urine Color Yellow 05/24/23 22:41 Urine Appearance Clear (Clear) 05/24/23 22:41 Urine pH 6.0 (4.5-7.5) 05/24/23 22:41 Ur Specific [place] 1.013 (1.000-1.030) 05/24/23 22:41 Urine Protein Negative (Negative) 05/24/23 22:41 Urine Glucose (UA) Negative (Negative) 05/24/23 22:41 Urine Ketones Negative (Negative) 05/24/23 22:41 Urine Nitrite Negative (Negative) 05/24/23 22:41 Ur Leukocyte Esterase 1+ (Negative) H 05/24/23 22:41 Urine WBC (Auto) 10-30 /hpf (0-5) H 05/24/23 22:41 Urine RBC (Auto) 5-10 /hpf (0-4) H 05/24/23 22:41 U Hyaline Cast (Auto) 1-5 /lpf (0-5) 05/24/23 22:41 U Epithel Cells (Auto) 10-20 /lpf (0-5) H 05/24/23 22:41 Urine Bacteria (Auto) 2+ (Negative) H 05/24/23 22:41 Urine Test Negative (Negative) 05/25/23 08:10 05/25/23 05/25/23 08:12 08:10 Urine Test Negative POC Ur Test Cancelled
[2023-05-25] MEDS ORDERED: SUGAMMADEX SODIUM 200 MG/2 ML VIAL IV ONE (13:31)
[2023-05-25] MEDS ORDERED: KETOROLAC 30 MG/ML VIAL ONE (13:50)
[2023-05-25] MEDS ORDERED: BUPIVACAINE/EPINEPHRINE 0.5% MPF 1:200,000 10 ML VIAL INFIL ONE (13:53)
--- NOTE | 2023-05-25 14:07 | Post Operative Brief Note ---
Immediate Post Op Note v1 Date of Surgery May 25, 2023 Pre & Post Diagnosis Operation Date: 05/25/23 12:20 Pre-Op Diagnosis: Symptomatic Cholelithiasis Post-Op Diagnosis: Symptomatic Cholelithiasis I identified the patient and participated in the time-out.: Yes Procedure Operation Date: 05/25/23 12:20 Actual Procedures p Laparoscopic Cholecystectomy - Wing Downing MD Surgeon Wing Downing MD Vpk Teacher none Estimated Blood Loss 15 Findings Consistent with Post-Op Diagnosis
--- NOTE | 2023-05-25 14:10 | Operative Report ---
Post Operative Report Pre & Post Diagnosis Operation Date: 05/25/23 12:20 Pre-Op Diagnosis: Symptomatic Cholelithiasis Post-Op Diagnosis: Symptomatic Cholelithiasis I identified the patient and participated in the time-out.: Yes Procedure Operation Date: 05/25/23 12:20 Actual Procedures p Laparoscopic Cholecystectomy - Wing Downing MD Surgeon Wing Downing MD Rotary Slicing Machine Operator none Estimated Blood Loss 15 Findings Consistent with Post-Op Diagnosis Large gallstone. Edema in the orantes of the gallbladder consistent with acute cholecystitis. Specimens Gallbladder to pathology Drains None Anesthesia Type General Complications None Indications This 42-year-old female admitted to the ER last night who is scheduled for elective cholecystectomy. She was admitted placed on IV antibiotics IV fluids and be taken to the OR for laparoscopic cholecystectomy today. We talked about the risk of an open procedure, retained common bile duct stone, postop bile leak, bleeding, infection requiring drainage, and common bile duct injury. Description of Procedure The patient was taken the OR and underwent excellent general endotracheal ane sthesia. Their abdomen is prepped and draped normal sterile fashion. Transverse supraumbilical incision was made and dissection was taken down to identify the anterior fascia. Two Vicryl's were placed on either side of the midline and his midline was then incised. The peritoneal cavity was entered bluntly with Josie clamp. A 12mm [place] trocar was then inserted and secured. Good pneumoperitoneum was achieved to 15 mmHg pressure. Patient is placed in head up and rolled to the left. A 11mm subxiphoid and two 5mm lateral ports were placed in the normal fashion. The gallbladder was identified was acutely inflamed. This then facilitated grasping the the fundus of the gallbladder which was retracted superiorly. The neck of the gallbladder was grasped and then retracted laterally. This splayed open the hepatocystic triangle. Attention was then to taking down the peritoneal attachments to identify the cystic duct and cystic artery. Once these were skeletonized and a medial and lateral window was created between the gallbladder fossa and the duct, thereby ensuring the critical view. Three clips were then placed distally on cystic duct 1 proximally the cystic duct was transected. Two clips were then placed approximately cystic artery one distally, the cystic artery was transected. An electrocautery hook was then used to move the gallbladder off the gallbladder fossa. The gallbladder was then placed in Endobag and brought out through the supraumbilical incision. The pneumoperitoneum was re-established and abdomen was irrigated out until the suction fluid was clear. There were some areas on the gallbladder fossa which were raw and were cauterized. The ports were then removed and the abdomen decompressed. The fascia of the supraumbilical incision was closed with Vicryls. 0.5% Marcaine with epinephrine local was to create a local field block. Interrupted Vicryl was used to close the skin. Steri-Strips and benzoin were used to reinforce the incisions. Sterile dressings were applied. Patient tolerated the procedure without complication and sent to the postop recovery period of observation. He will then be sent to the floor for the rest of his care. I attest to the content of the Intraoperative Record and any orders documented therein. Any exceptions are noted below.
[2023-05-25] MEDS: fentaNYL citrate PF 100 MCG/2 ML VIAL IV PRN ×4 (14:26→14:51)
--- NOTE | 2023-05-25 15:14 | Anesthesiology Progress Note ---
Date of Service May 25, 2023 Anesthesia Post Procedure Vital Signs Vital Signs: Temp Pulse Pulse Pulse Pulse Resp BP 05/25/23 14:55 63 16 05/25/23 14:45 96 H 22 05/25/23 14:35 65 18 05/25/23 14:25 86 15 05/25/23 14:16 36.5 C 96 H 14 05/25/23 11:13 37.0 C 72 16 05/25/23 08:02 37.2 C 72 16 05/25/23 03:30 36.7 C 81 16 05/25/23 02:15 69 16 05/25/23 00:48 69 16 05/24/23 23:08 80 13 05/24/23 22:16 37.0 C 77 16 157/95 H BP Pulse Ox O2 Del Method O2 Flow Rate 05/25/23 14:55 140/90 94 Room Air 05/25/23 14:45 151/99 H 95 Room Air 05/25/23 14:35 144/91 H 95 Oxymask 5 05/25/23 14:25 146/96 H 100 Oxymask 5 05/25/23 14:16 140/91 96 Oxymask 5 05/25/23 11:13 137/85 96 Room Air 05/25/23 08:02 117/75 93 Room Air 05/25/23 03:30 140/87 95 Room Air 05/25/23 02:15 118/81 99 Room Air 05/25/23 00:48 134/81 99 Room Air 05/24/23 23:08 133/92 95 Room Air 05/24/23 22:16 98 Room Air Pain Intensity Right Abdomen: Pain Intensity: 1 Abdomen: Pain Intensity: 7 Transfer of Care Handoff Completed per policy Notes Mental Status: alert / awake / arousable Patient Amnestic to Procedure: Yes Nausea / Vomiting: adequately controlled Pain: adequately controlled Airway Patency, RR, SpO2: stable & adequate BP & HR: stable & adequate Hydration State: stable & adequate Anesthetic Complications: no major complications apparent
[2023-05-25] MEDS ORDERED: oxyCODONE/ACETAMINOPHEN 5mg/325mg TAB PO PRN ×2 (15:21)
[2023-05-25] MEDS ORDERED: MoRPHine SULFATE 4 MG/ML 1 ML CARP\\VIAL IV PRN (15:21)
[2023-05-25] MEDS ORDERED: MoRPHine SULFATE 2 MG/ML CARP IV PRN (15:21)
[2023-05-25] MEDS: CHECK SCOPOLAMINE PATCH PLACEMENT SCH ×2 (16:03→23:35)
--- NOTE | 2023-05-25 19:30 | Electrocardiogram Report ---
Test Reason : Blood Pressure : / mmHG Vent. Rate : 078 BPM Atrial Rate : 078 BPM P-R Int : 154 ms QRS Dur : 092 ms QT Int : 374 ms P-R-T Axes : 035 -03 009 degrees QTc Int : 426 ms Normal sinus rhythm Normal ECG When compared with ECG of 18-AUG-2015 19:04, Vent. rate has decreased BY 46 BPM Confirmed by Rodrick Zacarias ([id number]) on 05/25/2023 7:29:54 PM Referred By: REFERRED SELF Confirmed By:Augie Zacarias
[2023-05-25] MEDS: ACETAMINOPHEN 325 MG TAB PO PRN (20:59)
[2023-05-26] MEDS: ACETAMINOPHEN 325 MG TAB PO PRN (03:58)
[2023-05-26] MEDS: PIPERACILLIN/TAZOBACTAM 4.5 GM in DEXTROSE 5% MINI-B 100 ML IV SCH (05:40)
[2023-05-26 07:37] LABS: Hematocrit (blood only) 43.8 % (37.0-47.0); Hemoglobin 14.7 g/dl (12.0-16.0); Mean Corpuscular Hemoglobin 30.9 pg (25.0-34.0); Mean Corpuscular Hgb Conc 33.6 g/dL (32.0-36.0); Mean Platelet Volume 8.9 fL (9.4-12.4); Platelet Count 342 K/uL (130-400); RDW Coefficient of Variation 12.6 % (11.5-14.5); RDW Standard Deviation 42.7 fL (36.4-46.3); Red Blood Count 4.76 M/uL (4.20-5.40); White Blood Count 13.57 K/ul (4.8-10.8)
[2023-05-26 08:04] LABS: Albumin Globulin Ratio 1.4 (0.9-2); Albumin Level 3.9 gm/dl (3.4-5.0); BUN Creatinine Ratio 7.1 (10-20); Bilirubin,Total 0.9 mg/dl (0.2-1.0); Calcium 8.6 mg/dl (8.6-10.3); Creatinine Clr Calc Pharmacy 105.7 ml/min; Est GFR (African American) 100.1 ml/min; Est GFR (Non-African American) 86.3 ml/min; Globulin 2.7 gm/dl (2.5-4.0); Magnesium 1.9 mg/dl (1.7-2.4); Phosphorus 3.1 mg/dl (2.5-4.9); Potassium 3.7 mmol/L (3.5-5.1); Total Protein 6.6 gm/dl (6.0-8.3)
--- NOTE | 2023-05-26 09:51 | Discharge Summary ---
Date of Service May 26, 2023 Admission HPI Per Admitting Provider 42-year-old female past med history significant for dyslipidemia, obesity, migraines with aura presents with abdominal pain after eating [place] food. Patient is scheduled for elective cholecystectomy on Thursday. The pain was in right upper quadrant region 10/10 in severity and was radiating to the back and chest. Currently pain is improved with the pain medications. Pain was associated with nausea. No diarrhea or constipation. Normal bladder movements. No fevers. Currently no shortness of breath. No headache. Vision is okay. No sore throat, no cough. Hemodynamics are stable. Past medical history. As mentioned above. Past surgical history. Colposcopy of cervix with biopsy Social history. . No smoking. Alcohol occasional. No drug use. Family history. Maternal grandmother had a basal cell carcinoma. Glaucoma. Mother had basal cell carcinoma. Father had diabetes. Paternal grandfather had diabetes. Admission Exam Per Admitting Provider General- Not in distress Head- atraumatic Eyes- PERRL. ENT- oropharynx clear Neck- supple, no JVD. Lungs- clear to auscultation No wheezing or crackles. Heart- regular rhythm; no murmur, no gallop. Abdomen- normal bowel sounds, soft, mild tenderness in RUQ region. No distension. Extremities- no pretibial edema, no erythema seen. Neuro- alert, oriented x 3; PERRL, no facial palsy; no dysarthria; moves extremities. Skin- warm & dry Principal Diagnosis Symptomatic Cholelithiasis Discharge Exam General- WD/WN young F in NAD Head- atraumatic Eyes- PERRL. ENT- oropharynx clear Neck- supple, no JVD. Lungs- clear to auscultation No wheezing or crackles. Heart- regular rhythm; no murmur, no gallop. Abdomen- normal bowel sounds, soft, mild tenderness to palp. surg. dressings c/d/i. No distension. Extremities- no pretibial edema, no erythema seen. Neuro- alert, oriented x 3; PERRL, no facial palsy; no dysarthria; moves extremities. Skin- warm & dry Discharge Data Allergies Allergy/AdvReac Type Severity Reaction Status Date / Time morphine Allergy Mild GI SYMPTOMS Verified 05/25/23 02:07 oxycodone Allergy Mild GI SYMPTOMS Verified 05/25/23 02:07 Consultations 05/25/23 00:32 ED Decision to Admit Stat 05/25/23 03:55 Consult General Surgery Routine Procedures Performed Operation Date: 05/25/23 12:20 Actual Procedures p Laparoscopic Cholecystectomy - Wing Downing MD Ordered Studies 05/24/23 22:36 US gallbladder Stat FINDINGS: Limitations: Exam is limited to gas artifact and the bowel . Liver: The liver measures 16.2 cm. Multiple anechoic structures identified within the kidney consistent with liver cyst, largest seen between the left and middle hepatic vein measuring 1.2 x 1.0 x 1.6 cm. Diffuse increased echogenicity throughout the liver consistent with fatty infiltration. Gallbladder: At least one gallstone measuring 1.6 cm seen at the gallbladder neck. The gallbladder wall measures 1.6 mm. Common bile duct: The common bile duct measures 3.4 mm. No stones. No dilation. Pancreas: There is significant obscuration of the pancreas. Right kidney: The right kidney is unremarkable with no hydronephrosis or stone. IMPRESSION: 1. Gallstone with no signs of acute cholecystitis. Diffuse fatty liver. 2. Remainder of the right upper quadrant ultrasound unremarkable. Hospital Course (1) Biliary colic: Symptomatic Cholelithiasis 42-year-old female past med history significant for dyslipidemia, obesity, migraines with aura presents with right upper quadrant abdominal pain after eating [place] food. Patient was scheduled for elective cholecystectomy on Thursday. Biliary colic Pt is s/p cholecystectomy with Dr. Downing on Tolerated procedure well. feeling well this AM Asymptomatic bacteriuria Received Zosyn Urine cultx pending History of migraines monitor Total Time Total Time Spent Total Time Spent (In Minutes): 40 Discharge Plan Discharge Items Patient Disposition: Home - Self-Care Reason For Visit: BILARY COLIC Discharge Diagnosis: Symptomatic Cholelithiasis Activity: Per Instructions section Lifting: No more than 25 pounds Bathing: No limitations Bathing Comment: shower tomorrow and remove dressnigs; keep steris on 1 week Sexual Activity: When tolerated Exercise/Sports: Wait until after follow-up appointment Driving/Machine Use: Resume 3 days after discharge Weightbearing: Full weightbearing Non-emergency contact: Surgeon Call non-emergency contact if: your pain is worsening, your temperature is above 101.5 and your wound pain has increased Follow-up/Referrals: Domingo Marte MD [Primary Care Provider] - Diet: Regular Addtl Attending Provider Instructions: Follow up at Dr. Downing's office in 2 weeks. If you have any questions regarding your surgery , please contact his office. For pain, you can take tylenol 1000 mg three times a day, up to 3,000 mg /day. For more severe pain, take oxycodone as needed as prescribed. Pending Studies at Discharge: Yes Studies:: urine culture Stand-Alone Forms: My [facility], Smoking Cessation Medications and DC Order Prescriptions: New oxycodone 5 mg tablet 2.5 mg PO Q6H PRN (Reason: pain) Qty: 5 0RF Continued medroxyprogesterone [Depo-Provera] 150 mg/mL suspension 150 mg IM .COMPLEX Qty: 1 3RF Rx Instructions: 150 mg intramuscularly q12wks; multivitamin Tablet 1 tab PO QAM sumatriptan succinate 50 mg tablet 50 mg PO UD PRN (Reason: migraines) albuterol sulfate 90 mcg/actuation HFA aerosol inhaler 2 puff INHALATION UD PRN (Reason: Shortness Of Breath) Patient Comments: has not used in a few years, usually only when sick simethicone 250 mg Capsule 250 mg PO HS Otc Less Sress Pill 2 tab PO DAILY Discharge Orders: Discharge Order (Routine); Ordered 05/26/23 Ordered By: Nelson Hernandez Admission Data Admit Date/Time: 05/25/23 02:32 Attending Provider: Nelson Hernandez Admit Provider: Reji Bernard Primary Care Provider: Domingo Marte Other Providers: Reji Bernard; Wing Downing
[2023-05-26] MEDS: CHECK SCOPOLAMINE PATCH PLACEMENT SCH (12:11)
== END 2023-05-26 12:12 | disposition home or self-care (01) | DRG 418 ==
LOC: ED 22:13 → 3W 05-25 02:32

== ENCOUNTER 2024-03-04 10:07 | Observation (INO) ==
--- NOTE | 2024-03-04 10:21 | Emergency Department Note ---
History of Present Illness General Chief complaint: Abdominal Pain Stated complaint: INCISIONAL HERNIA, POSSIBLE STRANGULATION, PAIN Time Seen by Provider: 03/04/24 10:21 History of Present Illness Maximum Pain Intensity: 5 This is a 43-year-old female that presents to the emergency department via private vehicle with complaints of "abdominal pain". The patient notes that last evening she ate some food and had some mild abdominal discomfort but that resolved. Then this morning around 8:30 AM she noted severe onset of abdominal discomfort near the umbilicus. She notes that there was a protrusion from the area and it was hard to the touch. No vomiting. No fever. She notes that there is a known hernia in that region and she was told that if she develops severe pain she is to present to the emergency department immediately. Patient denies chance of . Home Medications Medication Instructions Recorded Confirmed Type albuterol sulfate 90 mcg/actuation 2 puff inhalation UD PRN Shortness 03/09/23 03/04/24 History aerosol inhaler Of Breath multivitamin 1 tab PO QAM 03/09/23 03/04/24 History sumatriptan succinate 50 mg tablet 50 mg PO UD PRN migraines 03/09/23 03/04/24 History bupropion HCl 150 mg tablet,12 hr 150 mg PO DAILY 03/04/24 03/04/24 History sustained-release medroxyprogesterone 150 mg/mL 150 mg IM UD 03/04/24 03/04/24 History intramuscular suspension (Depo-Provera) naltrexone 50 mg tablet 25 mg PO DAILY 03/04/24 03/04/24 History Allergies Allergy/AdvReac Type Severity Reaction Status Date / Time morphine Allergy Mild GI SYMPTOMS Verified 03/04/24 12:38 oxycodone Allergy Mild GI SYMPTOMS Verified 03/04/24 12:38 Past Med/Surg History Problem List (Updated 03/04/24 @ 22:30 by Wilmer Taylor PA-C) Incarcerated ventral hernia (Acute) Periumbilical abdominal pain (Acute) Ventral hernia Biliary colic Nausea (Acute) Gallstones (Acute) Abdominal pain, RUQ (Acute) Encounter for pre-operative examination Menorrhagia Routine gynecological examination Medical History History of anxiety Hx of migraines Pneumonia age 19, aspirated while under anesthesia for removal of a neck cyst and developed aspiration pneumonia; still has rescue inhaler as needed when she is sick Bronchitis Hx- no recent issues, tends to get every couple of years since having aspiration pneumonia age 19 Surgical History History of laparoscopic cholecystectomy History of colonoscopy History of esophagogastroduodenoscopy (EGD) History of hysterosalpingogram Hx of removal of neck cyst History of dilatation and curettage History of epidural anesthesia "felt like it took a long time to wear off following surgery" Nausea and vomiting after administration of anesthetic agent [place] teeth extracted H/O breast biopsy 03/2018 bcc, right breast 10 oclock delivery delivered x1 Family History Grandfather (Paternal) Diabetes Father Thyroid disease Denies family history of Ovarian cancer Breast cancer Colorectal cancer Social History Smoking Status: Never smoker Second Hand Exposure: No; Do You Dip or Chew Tobacco: No; Hx Alcohol Use: Yes (occasional) Alcohol type: wine Hx Substance Use: No Preferred Language: Afghan Communication Ability: Effective Administrative Receptionist Required: No Beliefs That Will Affect Care: None Current Living Situation: Family Other Information That Helps Us Care for You: No Feels Safe at Home: Yes Assistive Devices: Contacts and Glasses Review of Systems A total of 10 systems reviewed and were otherwise negative Physical Exam Vital Signs Vital Signs - 24 hr 03/04/24 10:13 03/04/24 11:36 03/04/24 12:00 Temperature 36.6 C Temperature Source Oral Pulse Rate 82 66 Pulse Rate from SpO2 Sensor 66 Respiratory Rate 20 17 Respiratory Effort / Characteristics Non-Labored Spontaneous Respiratory Depth Normal Blood Pressure 152/109 H 116/80 Blood Pressure Mean 123 92 Pulse Oximetry 98 98 98 Oxygen Delivery Method Room Air Nasal Cannula Oxygen Flow Rate 2 Sepsis Recent Fever Within 48 Hours No Sepsis New/Unexplained Change in Mental Status N/A Sepsis Action Taken by Nursing No Action Required 03/04/24 12:02 03/04/24 12:30 Temperature Temperature Source Pulse Rate 64 89 Pulse Rate from SpO2 Sensor 81 Respiratory Rate 15 Respiratory Effort / Characteristics Respiratory Depth Blood Pressure 116/73 Blood Pressure Mean 87 Pulse Oximetry 95 Oxygen Delivery Method Oxygen Flow Rate Sepsis Recent Fever Within 48 Hours Sepsis New/Unexplained Change in Mental Status Sepsis Action Taken by Nursing VITAL SIGNS - Vital signs and nursing notes were reviewed. Stable and afebrile. GENERAL -43-year-old female appearing her stated age who is in no acute distress. Communicates well with provider and answers questions appropriately. SKIN - Without rashes. No meningeal or petechial rash. HEAD - NC/AT. EYES - Sclera anicteric. NECK - No nuchal rigidity. LUNGS - CTA CARDIAC - RRR ABDOMEN - Abdominal contour normal without pulsations or visible masses. BS normoactive all four quadrants. Significant tenderness with palpable hernia just superior to the umbilicus. EXTREMITIES - No clubbing or peripheral cyanosis. +5/5 strength noted in UE/LE bilaterally. NEUROLOGIC - Cranial nerves grossly intact. PSYCH -alert, oriented and pleasant on exam. Course Administered Medications Lactated Ringer's (Lr) 1,000 mls @ 80 mls/hr IV .[id number] KAMILAH Stop: 04/03/24 15:55 Last Admin: 03/04/24 17:03 Dose: 80 mls/hr Documented By: CMV Discontinued Medications Fentanyl Citrate (Fentanyl Citrate Pf 100 Mcg/2 Ml Vial) 50 mcg IV NOW STA Stop: 03/04/24 10:33 Last Admin: 03/04/24 10:52 Dose: 50 mcg Documented By: MYRAW Fentanyl Citrate (Fentanyl Citrate Pf 100 Mcg/2 Ml Vial) 50 mcg IV NOW STA Stop: 03/04/24 11:12 Last Admin: 03/04/24 11:16 Dose: 50 mcg Documented By: DEVENDRA Ioversol (Optiray 320 100ml) 94 ml IV ONCE ONE Stop: 03/04/24 11:48 Last Admin: 03/04/24 11:48 Dose: 94 ml Documented By: DENAE Ondansetron HCl (Ondansetron Inj 2 Mg/Ml 2 Ml Vial) 4 mg IV NOW STA Stop: 03/04/24 10:33 Last Admin: 03/04/24 10:58 Dose: 4 mg Documented By: LARRY Medical Decision Making Laboratory Data 03/04/24 10:54 03/04/24 10:54 Lab Results 03/04/24 03/04/24 Range/Units 10:54 11:22 WBC 8.08 (4.8-10.8) K/ul RBC 4.72 (4.20-5.40) M/uL Hgb 15.1 (12.0-16.0) g/dl Hct 43.2 (37.0-47.0) % MCV 91.5 (80.0-100.0) fL MCH 32.0 (25.0-34.0) pg MCHC 35.0 (32.0-36.0) g/dL RDW Std Deviation 42.0 (36.4-46.3) fL RDW Coeff of Ana 12.5 (11.5-14.5) % Plt Count 318 (130-400) K/uL MPV 9.0 L (9.4-12.4) fL Immature Gran % (Auto) 0.2 % Neut % (Auto) 71.8 % Lymph % (Auto) 20.0 % [place] % (Auto) 6.9 % Eos % (Auto) 0.6 % Baso % (Auto) 0.5 % Neut # (Auto) 5.79 (1.40-6.50) K/uL Lymph # (Auto) 1.62 (1.20-3.40) K/uL [place] # (Auto) 0.56 (0.11-0.59) K/uL Eos # (Auto) 0.05 (0.00-0.50) K/uL Baso # (Auto) 0.04 (0.00-0.20) K/uL Immature Gran # (Auto) 0.02 (0.01-0.20) K/uL Sodium 139 (136-145) mmol/L Potassium 3.7 (3.5-5.1) mmol/L Chloride 107 (98-107) mmol/L Carbon Dioxide 24 (21-32) mmol/L Anion Gap 8 (3-11) BUN 11 (6-23) mg/dl Creatinine 0.88 (0.6-1.2) mg/dl Est Cr Clr Drug Dosing 95.9 ml/min Est GFR ( Amer) 93.9 ml/min Est GFR (Non-Af Amer) 81.0 ml/min BUN/Creatinine Ratio 12.5 (10-20) Glucose 96 (70-99(Fasting)) mg/dl Lactate 0.8 (0.4-2.0) mmol/L Calcium 9.0 (8.6-10.3) mg/dl Total Bilirubin 0.6 (0.2-1.0) mg/dl AST 12 L (13-39) U/L ALT 9 (7-52) U/L Alkaline Phosphatase 64 (34-104) U/L Total Protein 6.8 (6.0-8.3) gm/dl Albumin 4.2 (3.4-5.0) gm/dl Globulin 2.6 (2.5-4.0) gm/dl Albumin/Globulin Ratio 1.6 (0.9-2) Lipase 12 (11-82) U/L HCG, Qual Negative (Negative) Urine Color Yellow Urine Appearance Clear (Clear) Urine pH 7.5 (4.5-7.5) Ur Specific [place] 1.014 (1.000-1.030) Urine Protein Negative (Negative) Urine Glucose (UA) Negative (Negative) Urine Ketones Negative (Negative) Urine Blood Negative (Negative) Urine Nitrite Negative (Negative) Urine Bilirubin Negative (Negative) Urine Urobilinogen Negative (Negative) Ur Leukocyte Esterase Negative (Negative) Imaging Data Radiologist's Impression: Abdomen/Pelvis CT 03/04/24 10:[address] WITH IV CONTRAST CT DOSE: 1479.51 mGy.cm HISTORY: Acute periumbilical abdominal pain Periumbilical abd pain TECHNIQUE: Multiaxial CT images of the abdomen and pelvis were performed following the IV administration of 94 cc of Optiray, A dose lowering technique was utilized adhering to the principles of ALARA. COMPARISON STUDY: None. FINDINGS: Clear lung bases. No free air. Unremarkable spleen, pancreas and adrenal glands. Cholecystectomy. Scattered hepatic cysts measure up to approximately 1.6 cm. Patency of the hepatic and portal veins. 2 cm cyst of the superior pole left kidney. Indeterminate exophytic 11 mm lesion of the inferior pole left kidney with Hounsfield of 34. Unremarkable urinary bladder. Fibroid uterus with individual lesions measuring up to approximately 3 cm. No abdominal aortic aneurysm or lymphadenopathy. Small hiatal hernia. Normal appendix. There is circumferential wall thickening involving a loop of ileum within the midline lower abdomen on image 245 series 3 with adjacent inflammatory stranding. Fat filled umbilical hernia with diastases of 2.7 cm also demonstrates mild inflammatory stranding. No acute fracture. IMPRESSION: 1. No bowel obstruction or pneumoperitoneum. 2. Small fat filled umbilical hernia with adjacent inflammatory stranding which may represent incarceration/fat necrosis. 3. Circumferential wall thickening noted involving a loop of ileum within the midline lower abdomen. This is inferior to the hernia. Differential considerations include a recently reduced loop of bowel versus an infectious or inflammatory enteritis unrelated to the hernia. Correlate with patient history. 4. Normal appendix. ACT 112: Negative or not required by law. The above report was generated using voice recognition software. It may contain grammatical, syntax or spelling errors. Electronically signed by: Jose G Jenkins M.D. 03/04/2024 1:05 PM MDM Narrative Patient was seen and evaluated as above in room C09. Review was performed of triage nursing notes and vital signs. I did review pertinent previous visits and patient history. After obtaining a thorough history and physical examination the above work up was performed. Patient presents to us today for assessment of abdominal pain. On examination she has a hernia. This is exactly where the pain is located. This is just superior to the umbilicus. Noting the patient's level of pain I am concerned this could contain bowel. Options of care were discussed with the patient. IV access was established. Labs were drawn. I did have staff paged general surgery noting clinical concern. I did speak with Dr. Burris at 10:51 AM. At that time I had already ordered IV analgesia, laboratory studies, CT scan of the abdomen pelvis. Patient provided 50 mcg of IV fentanyl, 4 mg of Zofran. Pain went from 9 to a 7. I did present again to bedside around 11:10 AM and at that point patient was given additional 50 mcg of fentanyl noting persistence of pain with plan for reduction. Patient placed in the Trendelenburg position. I discussed benefit versus risk of manual reduction and I was able to further examine the periumbilical area and with simple Trendelenburg and pain control it appears that the area spontaneously reduced without having to provide any manual manipulation of the area. Still mild tenderness at the defect. Patient had tremendous improvement of her pain. Even after the pain meds wore off pain continues to be essentially 0. We will still proceed with CT scan to further evaluate. Results of the CT scan are here in the note as dictated by radiologist. I also reviewed the imaging. I do agree that there is a small fat filled umbilical hernia with adjacent adjacent inflammatory stranding. There is comment of circumferential wall thickening noted involving a loop of ileum within the midline lower abdomen. I do suspect that this represents a recently reduced loop of bowel. Laboratory studies here reveal no leukocytosis or concerning anemia. No emergent metabolic disturbance. Lactate is normal. hCG negative. Lipase normal. Urinalysis negative. Patient was seen and evaluated by general surgery and plan will be admission with operative intervention. Please refer to further documentation regarding her stay. While in the department, I personally reevaluated the patient several times and each time the patient was found to be resting comfortably once the hernia was reduced. Case discussed with the attending physician. GCS: 15 In the evaluation and treatment of this patient the following differential diagnoses were entertained: Strangulated hernia, incarcerated hernia, small bowel obstruction, among others. Impression & Plan Periumbilical abdominal pain, Incarcerated ventral hernia Discharge Plan Visit Data Chief Complaint: Abdominal Pain Stated Complaint: INCISIONAL HERNIA, POSSIBLE STRANGULATION, PAIN ED Provider: [facility] ED Midlevel Provider: Wilmer Taylor Discharge Problem: Periumbilical abdominal pain, Incarcerated ventral hernia Patient Disposition: Admitted As Inpatient Condition: Good Discharge Instructions Interventions: ED Discharge Assessment Last Done: 03/04/24 15:46
[2024-03-04] MEDS: fentaNYL citrate PF 100 MCG/2 ML VIAL IV STA ×2 (10:52→11:16)
[2024-03-04] MEDS: ONDANSETRON INJ 2 MG/ML 2 ML VIAL IV STA (10:58)
[2024-03-04 11:14] LABS: Basophils # (auto) 0.04 K/uL (0.00-0.20); Basophils % (auto) 0.5 %; Eosinophils # (auto) 0.05 K/uL (0.00-0.50); Eosinophils % (auto) 0.6 %; Hematocrit (blood only) 43.2 % (37.0-47.0); Hemoglobin 15.1 g/dl (12.0-16.0); Immature Granulocytes # (auto) 0.02 K/uL (0.01-0.20); Immature Granulocytes % (auto) 0.2 %; Lymphocytes # (auto) 1.62 K/uL (1.20-3.40); Mean Corpuscular Volume 91.5 fL (80.0-100.0); Monocytes # (auto) 0.56 K/uL (0.11-0.59); Monocytes % (auto) 6.9 %; Neutrophils # (auto) 5.79 K/uL (1.40-6.50); Neutrophils % (auto) 71.8 %; Platelet Count 318 K/uL (130-400); RDW Coefficient of Variation 12.5 % (11.5-14.5); Red Blood Count 4.72 M/uL (4.20-5.40); White Blood Count 8.08 K/ul (4.8-10.8)
[2024-03-04 11:27] LABS: Albumin Globulin Ratio 1.6 (0.9-2); Albumin Level 4.2 gm/dl (3.4-5.0); BUN Creatinine Ratio 12.5 (10-20); Bilirubin,Total 0.6 mg/dl (0.2-1.0); Creatinine Clr Calc Pharmacy 95.9 ml/min; Est GFR (African American) 93.9 ml/min; Globulin 2.6 gm/dl (2.5-4.0); Potassium 3.7 mmol/L (3.5-5.1); Total Protein 6.8 gm/dl (6.0-8.3)
[2024-03-04 11:41] LABS: Pregnancy Test, Serum Negative (Negative)
[2024-03-04] MEDS: OPTIRAY 320 100ml IV ONE (11:48)
[2024-03-04 12:05] LABS: Appearance Urine Clear (Clear); Bilirubin Urine Negative (Negative); Blood Urine Negative (Negative); Color Urine Yellow; Glucose Urine UA Negative (Negative); Ketones Urine Negative (Negative); Leukocyte Esterase Urine Negative (Negative); Nitrite Urine Negative (Negative); Protein Urine Negative (Negative); Specific Gravity Urine 1.014 (1.000-1.030); Urobilinogen Urine Negative (Negative); pH Urine 7.5 (4.5-7.5)
--- OUTSIDE RECORDS SUMMARY | 2024-03-04 12:17 | External Medical Summary | Summary of Care ---
Author Name Unknown Organization [facility] Address [address] [place] [address] Phone [phone] Care Team Providers Care Procurement Professional Name Role Phone Maria Esther Evans MD Primary Care Provider Reason for Visit * Reason Comments NEW PATIENT Incisional hernia - symptomatic, limited movement, did have imaging, it just came out , pt has noticed it since october * Evaluate & Treat - Unlimited Visits (Within 30 days (routine)) - Authorized Specialty Diagnoses / Procedures Referred By Contac t Referred To Contact General Surgery Diagnoses Incisional hernia, without obstruction or gangrene Domingo Marte MD [address] [place] [address] Referral ID Status Reason Start Date Expiration Date Visits Requested Visits Authorized [id number] Authorized Specialty Services Required 02/16/2024 [id number] Encounter Details Date Type Department Care Team (Late st Contact Info) Description 02/25/2024 1:30 PM EDT Office Visit General Surgery, [facility] [address] [address] Wing Downing MD [address] [place] [address] Incisional hernia, without obstruction or gangrene* Allergies Active Allergy Reactions Criticality Noted Date Comments Oxycodone Nausea/vomiting 05/23/2013 documented as of this encounter (statuses as of 02/25/2024) Medications Medication Sig Dispensed Refills Start Date End Date Status Albuterol Sulfate HFA 108 (90 Base) MCG/ACT Inhalation Aerosol SolutionIndications:M ild persistent asthma, unspecified whether complicated Inhale by mouth 2 Puffs every 6 hours as needed for Wheezing. 18 g 1 02/12/2022 Active medroxyPROGESTERone Acetate 150 MG/ML Intramuscular Suspension 04/02/2023 Active Multivitamin Women Oral Tablet Take 1 Tablet by mouth daily. Active SUMAtriptan Succinate 50 MG Oral Tablet (Imitrex)Indications: Migraine with aura and without status migrainosus, not intractable TAKE 1 TABLET BY MOUTH NEEDED FOR MIGRAINE HEADACHE FOR ONE DOSE. MAY REPEAT DOSE AFTER 2 HOURS NEEDED. DO NOT EXCEED 4 TABLETS PER DAY 10 Tablet 5 12/02/2023 Active buPROPion HCl ER (SR) 150 MG Oral Tablet Extended Release 12 Hour (Wellbutrin SR) Take 1 Tablet by mouth every morning for 14 days, THEN 1 Tablet 2 times a day. 60 Tablet 2 02/18/2024 05/02/2024 Active Naltrexone HCl 50 MG Oral Tablet (Revia) Take 0.5 Tablets by mouth daily for 14 days, THEN 0.5 Tablets 2 times a day. 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 Migraine with aura and witho ut status migrainosus, not intractable 07/18/2013 documented as of this encounter (statuses as of 02/25/2024) Resolved Problems Problem Noted Date Diagnosed Date [...] as of this encounter (statuses as of 02/25/2024) Immunizations Name Administration Dates Next Due COVID-19 mRNA, LNP-s, No Pre serve, 2-Dose Series (Pfizer) 10/06/2020,09/15/2020 Seasonal Influenza, PF, 6 M & above, IM , (FluLaval or Fluzone) 04/16/2023,04/11/2019,04/08/2018 Seasonal Influenza, Trivalen t, (IIV3), with Preserv, (Fluzone) 06/02/2014 TDAP (age 10 and older)(Boostrix) 02/04/2021 TDAP, Age 7 and older, IM (Adacel) 11/30/2009 documented as of this encounter Social [...] money to get more. Never true 11/08/2020 Utilities Answer Date Recorded Do you have trouble paying y our heating, water, or electric bill? (Adult - for ages 18 years and over) Not on file 12/15/2023 Is your family able to pay t he heat, water, or electric bill? (Household - for ages 0-17 years) Not on file 12/15/2023 Does your family have access to good internet? (Household - for ages 0-17 years) Not on file 12/15/2023 Social Connections Answer Date Recorded How often do you feel lonely or isolated from those around you? (Adult - for ages 18 years and over) Not on file 12/15/2023 Sex and Gender Information Value Date Recorded Sex Assigned at Female 02/20/2021 12:47 PM EDT Gender Identity Female 02/20/2021 12:47 PM EDT Sexual Orientation Straight 02/20/2021 12 :47 PM EDT Job Start Date Occupation Industry Not on file Not on file Not on file documented as of this encounter Last Filed Vital Signs Vital Sign Reading Time Taken Comments Blood Pressure 132/86 02/25/2024 1:24 PM EDT Pulse 107 02/25/2024 1:24 PM EDT Temperature 37 C (98.6 F) 02/25/2024 1:24 PM EDT Respiratory Rate - - Oxygen Saturation - - Inhaled Oxygen Concentration - - Weight 103.1 kg (227 lb 3.2 oz) 02/25/2024 1:24 PM EDT Height 165.1 cm (5' 5") 02/25/2024 1:24 PM EDT p er chart Body Mass Index 37.81 02/25/2024 1:24 PM EDT documented in this encounter Progress Notes * Wing Downing MD - 02/25/2024 1:42 PM EDT [facility] [address] [place] [address] [facility] HPI.: Brigitte Barkley is a 43 year old female seen in consultation for Chief Complaint Patient presents with NEW PATIENT Incisional hernia - symptomatic, limited movement, did have imaging, it just came out , pt has noticed it since october . They have had symptoms present for months duration. The symptoms did not started at work. Their pain is sharp and intermittent and is usually associated with lifting. The lump is reducible. The patient has no symptoms of chronic constipation,chronic cough,difficulty urinating. The hernia is associated with a previous scar from a lap deni. Past Medical History Past Medical History: Diagnosis [...] as needed for Wheezing. 18 g 1 medroxyPROGESTERone Acetate 150 MG/ML Intramuscular Suspension Multivitamin Women Oral Tablet Take 1 Tablet by mouth daily. SUMAtriptan Succinate 50 MG Oral Tablet (Imitrex) TAKE 1 TABLET BY MOUTH NEEDED FOR MIGRAINE HEADACHE FOR ONE DOSE. MAY REPEAT DOSE AFTER 2 HOURS NEEDED. DO NOT EXCEED 4 TABLETS PER DAY 10 Tablet 5 buPROPion HCl ER (SR) 150 MG Oral Tablet Extended Release 12 Hour (Wellbutrin SR) Take 1 Tablet by mouth every morning for 14 days, THEN 1 Tablet 2 times a day. 60 Tablet 2 Naltrexone HCl 50 MG Oral Tablet (Revia) Take 0.5 Tablets by mouth daily for 14 days, THEN 0.5 Tablets 2 times a day. 30 Tablet 2 No current facility-administered medications for this visit. Allergies: Allergies as of 02/25/2024 - Reviewed 02/25/2024 Allergen Reaction Noted Oxycodone Nausea/vomiting 05/23/2013 Family History Family History Problem Relation Name Age of Onset Cancer Mother basal cell [...] Never Smokeless tobacco: Never Vaping Use Vaping status: Never Used Substance and Sexual Activity Alcohol use: Yes [...] Never true Transportation Needs: Not on file Social Connections: Unknown (12/15/2023) Social Connections How often do you feel lonely or isolated from those around you? (Adult - for ages 18 years and over): Not on file Housing Stability: Not on file ROS: GEN: no weight loss, fever, fatigue HEENT: no changes in vision or hearing, no sinus problems, no sore throat, no hoarseness RESPIRATORY: no cough, wheezing, SOB or change in breathing CARDIOVASCULAR: no exertional chest pain, dyspnea, palpitations GI: no melena or hemetemesis, no change in bowel habits, no nausea or vomiting : no dysuria, hematuria, frequency MUSCULOSKELETAL: no change in joint pains, no new arthritis PSYCHIATRIC: no significant anxiety or depression, unchanged sleep pattern HEME: no bleeding tendency, no clotting tendency NEURO: no significant headache, no seizures , no tremors SKIN: no new rashes, no itching Physical Exam: Blood pressure 132/86, pulse 107, temperature 37 C (98.6 F), height 1.651 m (5' 5"), weight 103.1 kg (227 lb 3.2 oz), not currently . Constitutional: alert,healthy,well nourished Head: normocephalic,atraumatic Eyes: conjunctiva non-injected,sclera white,EOMI Ears: pinna normal shape and color Neck: supple,no JVD,trachea midline Lungs: clear to auscultation,breath sounds are equal and symmetric,no crepitus Heart: regular rate & rhythm,no murmur, gallops or rubs Abdomen: soft ,positive bowel sounds,non-tender; positive ventral/incisional hernia supraumbilical,reducible Extremities: no joint deformities, effusion, or inflammation,no edema,no skin discoloration Neuro: alert,gait normal,motor normal Skin: no obvious rashes or significant lesions,warm and dry with good turgor Imaging: EXAM US ABDOMEN LIMITED - 11/17/2023 8:02 am HISTORY bulge and ache just above surgical incision, eval for hernia. TECHNIQUE Real-time ultrasound of the abdomen, with attention to the anterior abdominal wall, supraumbilical region. COMPARISON None. FINDINGS In the region of interest, there is a fat containing hernia identified. IMPRESSION IMPRESSION Fat containing hernia. IMP: Brigitte Barkley is a 43 year old female with a ventral/incisional hernia which is currently symptomatic. For this reason, I have recommended that the patient consider a hernia repair. This could be performed in open or laparascopic approach. Laparascopic surgery is useful in with incisional hernias and complex ventral hernias with fewer wound/mesh problems and early return to normal activity. I discussed the surgery in detail and the complications related to the surgery and the anesthesia. The risks of inherent to laparascopic surgery including seroma formation and the possibility of injuring the bowel or blood vessels were also discussed. Overall risks include, but are not limited to: recurrence of the hernia, post-op and chronic pain, numbness, bleeding, wound problems and mesh infection requiring mesh removal. Patient understands these risks. Expected same day nature of surgery and postoperative recovery period reviewed. Activity restrictions postoperatively to include no heavy lifting or high impact activity for three to six weeks reviewed. All questions were answered to the patient's satisfaction and consent was signed. Conservative treatment with avoidance of heavy lifting or straining until after surgical repair was discussed. We also reviewed the signs and symptoms of incarceration/strangulationand the patient was instructed to go directly to the emergency room should this occur. PLAN: open ventral/incisional hernia repair possible mesh at [facility] in March. Wing Downing MD 02/25/2024 1:43 PM documented in this encounter Nursing Notes * Marleny Perrin LPN - 02/25/2024 1:25 PM EDT Patient identified by name and date of . Chief Complaint Patient presents with NEW PATIENT Incisional hernia - symptomatic, limited movement, did have imaging, it just came out , pt has noticed it since october documented in this encounter Plan of Treatment Upcoming Encounters Date Type Department Care Team (Late st Contact Info) Description 03/28/2024 9:45 AM EDT Office Visit General Surgery, [facility] [address] [address] Wing Downing MD [address] [place] [address] 04/11/2024 4:00 PM EDT Office Visit Non [facility], Operating Room, [place] [address] [facility] [place] [address] Wing Downing MD [address] [place] [id number] 05/12/2024 10:00 AM EST Office Visit Nutrition & Weight Management, [facility] [address] [address] Divina Gilbert PA-C [address] [place] [address] 03/13/2025 8:20 AM EDT Office Visit Family Practice [facility] [address] [address] Domingo Marte MD [address] [place] [address] Scheduled Referrals Name Type Priority Associated Diagnoses Orde r Schedule SURGERY REFERRAL OP Referral Within 30 da ys (routine) Incisional hernia, without obstruction or gangrene Ordered: 02/16/2024 Health Maintenance Due Date Last Done Comments HIV Screening 1996 Hepatitis C Screening 10/20/1999 Hepatitis B Vaccine (1 of 3 - 19+ 3-dose series) 2000 HPV/Co-Test 10/20/2011 Cervical Cancer Screening 03/25/2021 Pap Smear 03/25/2021 03/25/2018, 06/29, 05/02/2010 (Done elsewhere), Additional history exists Depression Screening 02/04/2022 02/04/2021 COVID-19 Vaccine (3 2022-24 season) 2023 10/06/2020, 09/15/2020 Influenza Vaccine (FLU shot) (#1) 2024 04/16/2023, 04/11/2019, 04/11/2019, Additional history exists Mammogram 06/16/2024 06/16/2023, 03/30/2018 Diabetes Screening 05/14/2026 05/14/2023, 0 03/17/2021, 08/18/2015, Additional history exists Lipid Panel 11/05/2027 11/04/2022, 12/21/2006 DTap/Tdap Vaccines (5 - Td or Tdap) 02/04/2031 02/04/2021, 01/23/2014, 01/23/2014, Additional history exists HPV (Gardasil) Vaccine Aged Out No lo nger eligible based on patient's age to complete [...] as of this encounter Visit Diagnoses Diagnosis Incisional hernia, without obstruction or gangrene- Primary Incisional hernia without mention of obstruction or gangrene documented in this encounter Care Teams Procurement Professional Relationship Specialty Start Date End Date Maria Esther Evans MD [address] [address] PCP - General Internal Medicine 01/10/24 documented as of this encounter
--- NOTE | 2024-03-04 13:07 | CT Scan Report ---
ABDOMEN AND PELVIS CT WITH IV CONTRAST CT DOSE: 1479.51 mGy.cm HISTORY: Acute periumbilical abdominal pain Periumbilical abd pain TECHNIQUE: Multiaxial CT images of the abdomen and pelvis were performed following the IV administrat ion of 94 cc of Optiray, A dose lowering technique was utilized adhering to the principles of ALARA. COMPARISON STUDY: None. FINDINGS: Clear lung bases. No free air. Unremarkable spleen, pancreas and adrenal glands. Cholecyste ctomy. Scattered hepatic cysts measure up to approximately 1.6 cm. Patency of the hepatic and portal veins. 2 cm cyst of the superior pole left kidney. Indeterminate exophytic 11 mm lesion of the inferi or pole left kidney with [place] of 34. Unremarkable urinary bladder. Fibroid uterus with individu al lesions measuring up to approximately 3 cm. No abdominal aortic aneurysm or lymphadenopathy. Small hiatal hernia. Normal appendix. There is circumferential wall thickening involving a loop of il eum within the midline lower abdomen on image 245 series 3 with adjacent inflammatory stranding. Fat filled umbilical hernia with diastases of 2.7 cm also demonstrates mild inflammatory stranding. No ac [place] fracture. IMPRESSION: 1. No bowel obstruction or pneumoperitoneum. 2. Small fat filled umbilical hernia with adjacent inflammatory stranding which may represent incarce ration/fat necrosis. 3. Circumferential wall thickening noted involving a loop of ileum within the midline lower abdomen. This is inferior to the hernia. Differential considerations include a recently reduced loop of bowel versus an infectious or inflammatory enteritis unrelated to the hernia. Correlate with patient histor y. 4. Normal appendix. ACT 112: Negative or not required by law. The above report was generated using voice recognition software. It may contain grammatical, syntax o r spelling errors. Electronically signed by: Jose G Jenkins M.D. 03/04/2024 1:05 PM
--- NOTE | 2024-03-04 13:20 | History & Physical Report ---
Date of Service March 04, 2024 Assessment & Plan (1) Ventral hernia: Plan: pt had small bowel incarcerated...ER staff was able to reduce after administering narcotics. 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 CT scan reviewed. labs ok. we discussed options of going home with repair in near future electively vs having repaired while here. discussed risks of repair ( bleeding/infection/injury to an organ/dvt/pe/mi/cva etc...) questions answered. she would like to stay and have it repaired. will admit and repair when possible. likely d/c tomorrow. History of Present Illness Primary Care Provider: Domingo Marte MD pt began having severe supra umbilical pain that began at 9 AM. she has known hernia at her prior lap deni incision and was planning on having it repaired in March. Allergies Allergy/AdvReac Type Severity Reaction Status Date / Time morphine Allergy Mild GI SYMPTOMS Verified 03/04/24 12:38 oxycodone Allergy Mild GI SYMPTOMS Verified 03/04/24 12:38 Home Medications Medication Instructions Recorded Confirmed Type albuterol sulfate 90 mcg/actuation 2 puff inhalation UD PRN Shortness 03/09/23 03/04/24 History aerosol inhaler Of Breath multivitamin 1 tab PO QAM 03/09/23 03/04/24 History sumatriptan succinate 50 mg tablet 50 mg PO UD PRN migraines 03/09/23 03/04/24 History bupropion HCl 150 mg tablet,12 hr 150 mg PO DAILY 03/04/24 03/04/24 History sustained-release medroxyprogesterone 150 mg/mL 150 mg IM UD 03/04/24 03/04/24 History intramuscular suspension (Depo-Provera) naltrexone 50 mg tablet 25 mg PO DAILY 03/04/24 03/04/24 History Past Med/Surg History Problem List (Updated 01/25/24 @ 16:10 by Paris Whitt MD, FACOG) Ventral hernia Biliary colic Nausea (Acute) Gallstones (Acute) Abdominal pain, RUQ (Acute) Encounter for pre-operative examination Menorrhagia Routine gynecological examination Medical History (Updated 01/25/24 @ 16:10 by Paris Whitt MD, FACOG) History of anxiety Hx of migraines Pneumonia age 19, aspirated while under anesthesia for removal of a neck cyst and developed aspiration pneumonia; still has rescue inhaler as needed when she is sick Bronchitis Hx- no recent issues, tends to get every couple of years since having aspiration pneumonia age 19 Surgical History (Updated 01/25/24 @ 16:10 by Paris Whitt MD, FACOG) History of laparoscopic cholecystectomy History of colonoscopy History of esophagogastroduodenoscopy (EGD) History of hysterosalpingogram Hx of removal of neck cyst History of dilatation and curettage History of epidural anesthesia "felt like it took a long time to wear off following surgery" Nausea and vomiting after administration of anesthetic agent [place] teeth extracted H/O breast biopsy 03/2018 bcc, right breast 10 oclock delivery delivered x1 Family History Grandfather (Paternal) Diabetes Father Thyroid disease Denies family history of Ovarian cancer Breast cancer Colorectal cancer Social History Smoking Status: Never smoker Second Hand Exposure: No; Do You Dip or Chew Tobacco: No; Hx Alcohol Use: Yes Alcohol type: wine Hx Substance Use: No Preferred Language: Mongolian Communication Ability: Effective Intellectual Property Lawyer Required: No Beliefs That Will Affect Care: None Current Living Situation: Spouse Feels Safe at Home: Yes Assistive Devices: None Review of Systems All systems reviewed & are unremarkable except as noted in HPI & below Physical Exam Constitutional: WD/WN, vitals as above no acute distress and not ill appearing Eyes: PERRL, conjunctivae normal, anicteric sclerae EOM intact bilaterally ENMT: external ear and nose normal, oropharynx normal Ears: no hearing impairment Neck: trachea midline, no thyromegaly Respiratory: normal respiratory effort; no respiratory distress and does not use accessory muscles Cardiovascular: Rate/Rhythm: regular rate and regular rhythm Gastrointestinal (Abdomen): soft. +supraumbilical hernia. tender. currently not incarcerated with bowel. Skin: no rashes, warm and dry Psychiatric: Orientation: alert, oriented x 3 and cooperative Results & Data Vital Signs (Past 12 Hours) Vital Signs Temp Pulse Resp BP Pulse Ox O2 Del Method O2 Flow Rate 03/04/24 12:30 89 15 116/73 95 03/04/24 12:02 64 03/04/24 12:00 98 Nasal Cannula 2 03/04/24 11:36 66 17 116/80 98 03/04/24 10:13 36.6 C 82 20 152/109 H 98 Room Air
--- NOTE | 2024-03-04 14:44 | Anesthesiology Consultation ---
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 History Surgery Operation Date: 03/05/24 07:30 Proposed Procedures p Open Incisional Hernia Repair with Mesh - Sandro Burris DO Height/Weight Height: 5 ft 5 in Weight: 96.8 kg Allergies Allergy/AdvReac Type Severity Reaction Status Date / Time morphine Allergy Mild GI SYMPTOMS Verified 03/04/24 12:38 oxycodone Allergy Mild GI SYMPTOMS Verified 03/04/24 12:38 Medications Home Medications Medication Instructions Recorded Confirmed Last Taken albuterol sulfate 90 mcg/actuation 2 puff inhalation UD PRN Shortness 03/09/23 03/04/24 Unknown aerosol inhaler Of Breath multivitamin 1 tab PO QAM 03/09/23 03/04/24 03/03/24 sumatriptan succinate 50 mg tablet 50 mg PO UD PRN migraines 03/09/23 03/04/24 03/09/23 08:00 bupropion HCl 150 mg tablet,12 hr 150 mg PO DAILY 03/04/24 03/04/24 03/04/24 sustained-release medroxyprogesterone 150 mg/mL 150 mg IM UD 03/04/24 03/04/24 02/18/24 intramuscular suspension (Depo-Provera) naltrexone 50 mg tablet 25 mg PO DAILY 03/04/24 03/04/24 03/04/24 Past Medical History Medical History History of anxiety Hx of migraines Pneumonia age 19, aspirated while under anesthesia for removal of a neck cyst and developed aspiration pneumonia; still has rescue inhaler as needed when she is sick Bronchitis Hx- no recent issues, tends to get every couple of years since having aspiration pneumonia age 19 Past Family History Family History Grandfather (Paternal) Diabetes Father Thyroid disease Denies family history of Ovarian cancer Breast cancer Colorectal cancer Past Surgical History Surgical History History of laparoscopic cholecystectomy History of colonoscopy History of esophagogastroduodenoscopy (EGD) History of hysterosalpingogram Hx of removal of neck cyst History of dilatation and curettage History of epidural anesthesia "felt like it took a long time to wear off following surgery" Nausea and vomiting after administration of anesthetic agent [place] teeth extracted H/O breast biopsy 03/2018 bcc, right breast 10 oclock delivery delivered x1 Social History Smoking Status: Never smoker Do You Dip or Chew Tobacco: No Hx Alcohol Use: Yes Alcohol type: wine alcohol intake frequency: 0-2 drinks per day Hx Substance Use: No substance use type: does not use Physical Exam Vital Signs Last Vital Signs Temp 97.9 F 03/04/24 10:13 Pulse 89 03/04/24 12:30 Resp 15 03/04/24 12:30 BP 116/73 03/04/24 12:30 Pulse Ox 95 03/04/24 12:30 O2 Del Method Nasal Cannula 03/04/24 12:00 O2 Flow Rate 2 03/04/24 12:00 Testing Laboratory Results 03/04/24 10:54 03/04/24 10:54 Urine Color Yellow 03/04/24 10:54 Urine Appearance Clear (Clear) 03/04/24 10:54 Urine pH 7.5 (4.5-7.5) 03/04/24 10:54 Ur Specific [place] 1.014 (1.000-1.030) 03/04/24 10:54 Urine Protein Negative (Negative) 03/04/24 10:54 Urine Glucose (UA) Negative (Negative) 03/04/24 10:54 Urine Ketones Negative (Negative) 03/04/24 10:54 Urine Nitrite Negative (Negative) 03/04/24 10:54 Ur Leukocyte Esterase Negative (Negative) 03/04/24 10:54
[2024-03-04] MEDS ORDERED: oxyCODONE HCL IR 5 MG TAB (IMMEDIATE RELEASE) PO PRN ×2 (15:56)
[2024-03-04] MEDS ORDERED: ALBUTEROL HFA 8 GM INHALER INH PRN (15:56)
[2024-03-04] MEDS ORDERED: IBUPROFEN 600 MG TAB PO PRN (15:56)
[2024-03-04] MEDS: LACTATED RINGER'S 1,000 ML IV SCH (17:03)
--- NOTE | 2024-03-05 07:00 | History & Physical Bridge Note ---
Date of Service March 05, 2024 History & Physical Bridge Note I have examined the patient, reviewed the History & Physical and in the interval since the performance of the History & Physical I have noted the following changes of clinical significance: no changes noted
[2024-03-05] MEDS ORDERED: MIDAZOLAM HCL 1 MG/ML 2ML VIAL ONE (07:08)
[2024-03-05] MEDS ORDERED: SUGAMMADEX SODIUM 200 MG/2 ML VIAL IV ONE (07:08)
[2024-03-05] MEDS ORDERED: fentaNYL citrate PF 100 MCG/2 ML VIAL ONE ×2 (07:08→08:02)
[2024-03-05] MEDS ORDERED: ACETAMINOPHEN 1000 MG/100 ML IV IV ONE (07:12)
[2024-03-05] MEDS ORDERED: fentaNYL citrate PF 100 MCG/2 ML VIAL IV PRN (07:17)
[2024-03-05] MEDS ORDERED: ePHEDrine sulfate 50 MG/ML AMP IV PRN (07:17)
[2024-03-05] MEDS ORDERED: ONDANSETRON INJ 2 MG/ML 2 ML VIAL IV PRN (07:17)
[2024-03-05] MEDS ORDERED: ATROPINE SULFATE 0.1 MG/ML 10ML SYR IV PRN (07:17)
[2024-03-05] MEDS: ceFAZolin 2000MG 2,000 MG/15 ML SYR IV ONE (07:51)
[2024-03-05] MEDS ORDERED: DexMEDEtomidine HCL IV 100 MCG/ML VIAL IV ONE (07:52)
[2024-03-05] MEDS ORDERED: KETOROLAC 30 MG/ML VIAL ONE (07:54)
[2024-03-05] MEDS ORDERED: ONDANSETRON INJ 2 MG/ML 2 ML VIAL ONE (07:54)
[2024-03-05] MEDS ORDERED: DEXAMETHASONE SOD INJ 4 MG/ML VIAL ONE (07:54)
[2024-03-05] MEDS ORDERED: ceFAZolin 330 MG/ML 1 GM VIAL ONE (07:54)
[2024-03-05] MEDS ORDERED: PROPOFOL IV EMULSION 10 MG/ML 20 ML VIAL IV ONE (07:54)
[2024-03-05] MEDS ORDERED: LIDOCAINE 2% 2 ML VIAL/AMP(20MG/ML) INFIL ONE (07:54)
[2024-03-05] MEDS ORDERED: ROCURONIUM BROMIDE 10 MG/ML 5 ML VIAL IV ONE (07:54)
[2024-03-05] MEDS: BUPIVACAINE/EPINEPHRINE 0.5% MPF 1:200,000 30 ML VIAL ONE (08:32)
--- NOTE | 2024-03-05 09:14 | Anesthesiology Progress Note ---
Date of Service March 05, 2024 Anesthesia Post Procedure Vital Signs Vital Signs: Temp Pulse Pulse Pulse Resp BP BP 03/05/24 09:05 72 20 127/86 03/05/24 08:55 72 20 124/86 03/05/24 08:47 98.6 F 83 23 140/91 03/04/24 21:24 98.4 F 67 16 129/89 03/04/24 15:57 97.3 F L 68 16 121/85 03/04/24 14:30 72 22 03/04/24 14:03 64 22 115/85 03/04/24 13:30 65 20 121/89 03/04/24 12:30 89 15 116/73 03/04/24 12:02 64 03/04/24 12:00 03/04/24 11:36 66 17 116/80 03/04/24 10:13 97.9 F 82 20 152/109 H Pulse Ox O2 Del Method O2 Flow Rate 03/05/24 09:05 92 Room Air 0 03/05/24 08:55 96 Oxymask 4 03/05/24 08:47 99 Oxymask 8 03/04/24 21:24 96 Room Air 03/04/24 15:57 96 Room Air 03/04/24 14:30 03/04/24 14:03 96 03/04/24 13:30 96 Room Air 03/04/24 12:30 95 03/04/24 12:02 03/04/24 12:00 98 Nasal Cannula 2 03/04/24 11:36 98 03/04/24 10:13 98 Room Air Pain Intensity Abdomen: Pain Intensity: 4 Transfer of Care Handoff Completed per policy Notes Mental Status: alert / awake / arousable and participated in evaluation Patient Amnestic to Procedure: Yes Nausea / Vomiting: adequately controlled Pain: adequately controlled Airway Patency, RR, SpO2: stable & adequate BP & HR: stable & adequate Hydration State: stable & adequate Anesthetic Complications: no major complications apparent and Pt Satisfied with anesthetic care
[2024-03-05 10:23] VITALS: RESP 16
--- NOTE | 2024-03-05 11:03 | Operative Report ---
PG Post Operative Report Pre & Post Diagnosis Operation Date: 03/05/24 07:30 Pre-Op Diagnosis: Ventral Hernia Post-Op Diagnosis: Ventral Hernia I identified the patient and participated in the time-out.: Yes Procedure Operation Date: 03/05/24 07:30 Actual Procedures p Open Ventral Hernia Repair with Mesh - Sandro Burris DO Surgeon Sandro Burris DO Jalousies Installer n/a Estimated Blood Loss 5 Findings Consistent with Post-Op Diagnosis Specimens none Description of Procedure After informed consent was obtained the patient was taken the operating room and placed in supine position. After successful intubation the abdomen was sterilely prepped and draped in usual fashion. I began by making a horizontal incision through her old scar line above her umbilicus. This was carried down through the soft tissue using cautery. I readily encountered a hernia sac. I opened the hernia sac and excised it in 360 degrees. This exposed about a 3 cm defect. There was no bowel incarceration. I did perform a finger sweep and again there were no adhesed loops of bowel either. I then grasped the 2 edges of the defect with Allis clamps. I skeletonized the fascia in 360 degrees. A 6 cm Ventralex mesh was folded and placed into the abdomen. The arms of the mesh were used to pull it up to the undersurface of the fascia. I used 0 Ethibond with 4 points of fixation on both sides to secure. I then closed the fascia over top of it using #1 Ethibond in simple interrupted fashion. There was adequate hemostasis. The wound was thoroughly irrigated and closed using 2-0 Vicryl for deep layers and 4 Monocryl for skin. Marcaine with epinephrine was injected around it for postoperative analgesia. Dermabond glue was used as a dressing. The patient was awakened extubated and transferred to recovery in stable condition. I attest to the content of the Intraoperative Record and any orders documented therein. Any exceptions are noted below.
[2024-03-05 11:44] VITALS: BP 127/94; PULSE 81; TEMP 97.5; O2SAT 91
== END 2024-03-05 11:45 | disposition home or self-care (01) ==
LOC: 3W 10:07 → ED 10:07 → 3W 15:46
DX: Z79.899 Other long term (current) drug therapy; G43.909 Migraine, unspecified, not intractable, without status migrainosus; K43.9 Ventral hernia without obstruction or gangrene; Z88.5 Allergy status to narcotic agent